=== PATIENT | male | born 1995 | race Caucasian/White ===

== ENCOUNTER 2024-10-03 13:20 | Emergency (ER) | payer BC, SELFPAY ==
[2024-10-03 13:21] VITALS: BP 156/101; PULSE 76; RESP 20; TEMP 37.1; O2SAT 98
[2024-10-03] MEDS: diazePAM 5 MG Tablet PO (14:15)
[2024-10-03] MEDS: Ketorolac 30 MG/ML Syringe IM (14:15)
--- NOTE | 2024-10-03 14:23 | EDS_ITS ---
HPI History of Present Illness Chief Complaint: Back Narrative Narrative: Chief complaint and HPI: Lumbar back pain. 29-year-old male with past medical history of herniated lumbar disks presents for evaluation of lumbar back pain. Patient states several years ago he was diagnosed with herniated lumbar disc. States he saw an orthopedic surgeon who recommended surgery however patient declined. States that he has been having intermittent low back pain. Has flared up over the last several days. Denies any injury or trauma. Denies any new numbness. States he periodically gets numbness and his lower extremities which is not uncommon. Denies weakness, urinary retention, stool or urinary incontinence, saddle anesthesia, recent invasive manipulation of the spine, intravenous drug use, or fever. Review of systems: See HPI Medications: As listed on the chart Allergies: As listed on the chart PFSH: Per chart Vital signs: As listed on the chart. Reviewed. Physical exam: Gen: A&O x3, NAD Head: Normocephalic, atraumatic Eyes: No sclera icterus, conjunctiva clear ENT: Moist mucous membranes Neck: Trachea midline, No JVD CV: RRR, no murmurs, no peripheral edema Resp: Lungs CTA BL, no w/r/c GI: Abd soft, non-distended, non-tender, no r/r/g Musc: Full ROM, no deformity, no midline spinal tenderness, no bony step-off, tenderness to palpation of the bilateral paraspinal musculature of the lower lumbar spine, no signs of trauma such as ecchymosis or cellulitis, strength +5/5 in all extremities, DP/PT pulses +2 bilaterally, no saddle paresthesias, normal gait Skin: Warm, dry Neuro: Alert, oriented, grossly intact, sensation intact Psych: Cooperative, appropriate mood and affect [facility] Home Medications ?Medication ?Instructions ?Recorded ?Last Taken ?Type cyclobenzaprine 5 mg tablet 5 mg PO TID PRN muscle spa sm 3 10/03/24 Unknown Rx days #9 tabs Allergy/AdvReac Type Severity Reaction Status Date / Time Penicillins (PCN) Allergy PT UNABLE Verified 10/03/24 13:20 TO RESPOND-NEEDS F/U Social History (Updated 02/14/20 @ 13:39 by Michael OGLESBY, PA) Smoking Status: Never smoker EXAM Physical Exam Const Vital Signs: 06/30/25 13:21 Temperature 98.7 F Temperature Source Temporal Pulse Rate 76 Respiratory Rate 20 H Blood Pressure 156/101 H Blood Pressure Mean 119 Pulse Ox 98 Oxygen Delivery Method Room Air MDM MDM MDM Narrative Medical decision making narrative: 29-year-old male with past medical history of herniated lumbar disks presents for evaluation of lumbar back pain. Patient states several years ago he was diagnosed with herniated lumbar disc. States he saw an orthopedic surgeon who recommended surgery however patient declined. States that he has been having intermittent low back pain. Has flared up over the last several days. On chart review, I do not have any previous imaging of his back. There has been no trauma or new injury. Nothing to suggest an infectious etiology. He is not an IV drug abuser. No new neurological findings to suggest acute cauda equina syndrome or acute radiculopathy. At this point in time do not feel any emergent imaging such as x-rays or MRI are warranted. Patient symptoms will be treated w ith Valium and Toradol. Patient does have a ride home. Patient will be observed. On reevaluation, patient states his pain is improved and minimal. Patient stable to discharge home. Recommend following up outpatient with orthopedic surgery as well as PCP. Will be given a prescription for muscle relaxers. Okay for ibuprofen and Tylenol. Return precautions explained. He confirmed understanding of plan. Impression: 1. Lumbar back spasm 2. Chronic back pain Discharge Plan Triage Chief Complaint: Back ED Provider: Matt Barnes Dx/Rx/DC Orders Clinical Impression: Lumbar paraspinal muscle spasm Instructions: ED Back Spasm, No Trauma Prescriptions: New cyclobenzaprine 5 mg tablet 5 mg PO TID PRN (Reason: muscle spasm) 3 Days Qty: 9 0RF Primary Care Provider: Care Physician,No Primary Referrals: Jose Mc MD [Med Staff - Active Staff] - 3-5 Days Jean Frias MD [Med Staff - Active Staff] - 3-5 Days Activity Restrictions/Additional Instructions: Follow-up with orthopedic physician. Call to make an appointment. If you do not have a family doctor, follow-up with the one provided above. You received Toradol here in the emergency department, no ibuprofen for 8 hours. You received Valium here in the emergency department, no muscle relaxer for 8 hours. After that okay for ibuprofen and muscle relaxers. Okay for Tylenol. Recommend heating pad as well as IcyHot. Gentle stretching. Return back to the ED if symptoms change or worsen. No driving or operating heavy machinery while taking muscle relaxers. Print Language: Kyrgyz Disposition Disposition: Home, Self Care
[2024-10-03 14:52] VITALS: BP 132/108; PULSE 64; RESP 18; TEMP 37.1; O2SAT 98
--- OUTSIDE RECORDS SUMMARY | 2024-10-04 00:03 | XMS RPT_ITS | CCD ---
Author Organization [facility] CliniSymo Care Team Providers Care Miniature Train Driver Name Role Phone Wood, Sadiq L Unavailable Unavailable Rafat, Ciara Unavailable Unavailable Wood, Sadiq L Unavailable Unavailable ACSO Unavailable Unavailable Rafat, Ciara Unavailable Unavailable Asbridge, Toya Unavailable Unavailable Asbridge, Toya Unavailable Unavailable Unavailable Primary Care Physician Unavailab delmy OLIVER, DR LEWIS rPuett Attending Unavailable MELODY, DR LEWIS Pruett Admitting Unavailable MELODY, DR LEWIS Pruett Primary Care Unavailable GEMMA LOZADA Primary Care Unavailable GEMMA LOZADA Attending Unavailable GEMMA LOZADA Admitting Unavailable [facility]ERENE, [facility] Admitting Unava ilable POMERENE, [facility] Primary Care Unava ilable JONANE, [facility] Attending Unava ilable WADE GUNTER Admitting Unavailable WADE GUNTER Primary Care Unavailable WADE GUNTER Attending Unavailable Required, No Pcp Unavailable Unavailable Kat Rosas Unavailable Unavailable Shima Alas Unavailable Unavailable Austin Almaguer Unavailable Unavailable Shima Alas Attending Unavailable Rafal Bergeron Attending Unavailable Dr. Austin Almaguer Attending UnavailBrock Oliva Unavailable Unavailable Duglas Dyerla B Primary Care Provider Libra Grossman Unavailable Unava ilable Libra Grossman Unavailable CASANDRA HWANG Attending Unavailable REDD SADIQ L Primary Care Unavailable LIBRA HA Attending Unavailable CASANDRA HWANG Referring Unavailable ERI, CASANDRA B Primary Care Unavailable LIBRA HA Attending Unavailable CASANDRA HWANG B Primary Care Unavailable YELITZA RIZVI Attending Unavailable CASANDRA HWANG B Primary Care Unavailable YELITZA RIZVI Attending Unavailable CASANDRA HWANG B Primary Care Unavailable YELITZA RIZVI Attending Unavailable DUGLAS HWANGLA B Primary Care Unavailable LEB, YELITZA B Attending Unavailable ERI, CASANDRA B Primary Care Unavailable LEB, YELITZA B Attending Unavailable ERI, CASANDRA B Primary Care Unavailable [facility] CHALK CUTTER-CRUSHER OPERATOR, Casandra B Primary Care Provider Leland CHALK CUTTER-CRUSHER OPERATOR, Libra Vargas Unavailable Unava ilable ERI, CASANDRA B Primary Care Unavailable LEB, YELITZA B Referring Unavailable ERI, CASANDRA B Primary Care Unavailable LEB, YELITZA B Referring Unavailable ERI, CASANDRA B Primary Care Unavailable LEB, YELITZA B Referring Unavailable ERI, CASANDRA B Primary Care Unavailable LEB, YELITZA B Referring Unavailable ERI, CASANDRA B Primary Care Unavailable LEB, YELITZA B Referring Unavailable ERI, CASANDRA B Primary Care Unavailable ERI, CASANDRA B Primary Care Unavailable LEB, YELITZA B Referring Unavailable ERI, CASANDRA B Primary Care Unavailable LEB, YELITZA B Referring Unavailable ERI, CASANDRA B Primary Care Unavailable LEB, YELITZA B Referring Unavailable ERI, CASANDRA B Primary Care Unavailable ERI, CASANDRA B Referring Unavailable ERI, CASANDRA B Primary Care Unavailable ERI, CASANDRA B Referring Unavailable ERI, CASANDRA B Primary Care Unavailable ERI, CASANDRA B Primary Care Unavailable WADE GUNTER Attending Unavailable LEB, YELITZA B Referring Unavailable ERI, CASANDRA B Primary Care Unavailable LEB, YELITZA B Referring Unavailable ERI, CASANDRA B Primary Care Unavailable LEB, YELITZA B Admitting Unavailable LEB, YELITZA B Attending Unavailable ERI, CASANDRA B Primary Care Unavailable LEB, YELITZA B Referring Unavailable ERI, CASANDRA B Primary Care Unavailable LEB, YELITZA B Referring Unavailable ERI, CASANDRA B Primary Care Unavailable LEB, YELITZA B Referring Unavailable ERI, CASANDRA B Primary Care Unavailable RADHA SAHU Attending Unavailable LEB, YELITZA B Referring Unavailable ERI, CASANDRA B Primary Care Unavailable LEB, YELITZA B Referring Unavailable ERI, CASANDRA B Primary Care Unavailable LEB, YELITZA B Referring Unavailable ERI, CASANDRA B Primary Care Unavailable LEB, YELITZA B Referring Unavailable ERI, CASANDRA B Primary Care Unavailable LEB, YELITZA B Referring Unavailable ERI, CASANDRA B Primary Care Unavailable LEB, YELITZA B Referring Unavailable ERI, CASANDRA B Primary Care Unavailable Care Physician, No Primary Primary Care Provider Unavailable Dr. Matt Barnes DO Emergency Provider Unavailable Unavailable Unavailable Allergies Allergy Classification Reported Allergen(s) Allergy Type Date of Onset Reaction(s) Facility (1 source) Penicillins Allergy to substance PT UNABLE TO RESPOND-NEEDS F/U [facility] Medications Current Medications Medication Drug Class(es) Dates Sig (Normalized) Sig (Original) acetaminophen 325 mg / HYDROcodone bitartrate 5 mg oral tablet (3 sources) Opioid Agonist Start: 08-11-2022 take 1 tablet by mouth every six hours hydrocodone-acetam inophen 5 mg-325 mg oral tablet ; 1 tab(s) orally every 6 hours Quantity: 12 Refills: 0 Ordered: 11-Aug-2022 Austin Almaguer Start: 11-Aug-2022 Generic Substitution Allowed Comments: Caution federal law prohibits the transfer of this drug to any person other than the person for whom it was prescribed.May cause drowsiness. Alcohol may intensify this effect. Use care when operating dangerous machinery.This product contains acetaminophen. Do not use with any other product containing acetaminophen to prevent possible liver damage.Using more of this medication than prescribed may cause serious breathing problems. Comment on above: Caution [address] law prohibits the transfer of this drug to any person other than the person for whom it was prescribed.May cause drowsiness. Alcohol may intensify this effect. Use care when operating dangerous machinery.This product contains acetaminophen. Do not use with any other product containing acetaminophen to prevent possible liver damage.Using more of this medication than prescribed may cause serious breathing problems. acetaminophen 325 mg / oxyCODONE hydrochloride 5 mg oral tablet (3 sources) Opioid Agonist Start: 03-21-2024 End: 03-31-2024 take 1 tablet by mouth every six hours for pain oxyCODONE-acetamin ophen (Percocet) 5-325 mg tablet Indications: Trigger middle finger of left hand Take 1 tablet by mouth every 6 hours if needed for severe pain (7 - 10) for up to 10 days. 28 tablet 03/21/2024 03/31/2024 Active amoxicillin 875 mg / clavulanate 125 mg oral tablet (5 sources) Penicillin-class Antibacterial Start: 12-16-2022 End: 12-20-2022 take 1 tablet by mouth twice daily at mealtime amoxicillin-clavul anate 875 mg-125 mg oral tablet ; 1 tab(s) orally 2 times a day Quantity: 10 Refills: 0 Ordered: 15-Dec-2022 Brock Blackwood Start: 15-Dec-2022 End: 19-Dec-2022 Generic Substitution Allowed Comments: Finish all this medication unless otherwise directed by prescriber.Take with food or milk. Start: 08-04-2022 End: 08-10-2022 take 1 tablet by mouth twice daily at mealtime amoxicillin-clavulanate 875 mg-125 mg oral tablet ; 1 tab(s) orally 2 times a day Quantity: 14 Refills: 0 Ordered: 04-Aug-2022 Rafal Bergeron Start: 04-Aug-2022 End: 10-Aug-2022 Generic Substitution Allowed Comments: Finish all this medication unless otherwise directed by prescriber.Take with food or milk. Comment on above: Finish all this medi cation unless otherwise directed by prescriber.Take with food or milk. azithromycin 250 mg oral tablet (1 source) Macrolide Antimicrobial Start : 02-06 End: 02-10 Zithromax Z-Mik 250 mg oral tablet ; 2 tab(s) by mouth at once on day 1, then 1 tablet once a day on days 2-5 Quantity: 6 Refills: 0 Ordered: 06-Feb-2022 Shima Alas Start: 06-Feb-2022 End: 10-Feb-2022 Generic Substitution Allowed Comments: Do not take dairy products, antacids, or iron preparations within one hour of this medication.Finish all this medication unless otherwise directed by prescriber. Comment on above: Do not take dairy pr oducts, antacids, or iron preparations within one hour of this medication.Finish all this medication unless otherwise directed by prescriber. calcium chloride 0.0014 meq/ml / potassium chloride 0.004 meq/ml / sodium chloride 0.103 meq/ml / sodium lactate 0.028 meq/ml injectable solution (2 sources) Start : 03-21 End: 03-22 take 50 mL intravenously every hour 50 mL/hr, intravenous, Continuous, Starting on Thu03/21/24 at 1000, For 1 day, Recovery (only) cyclobenzaprine hydrochloride 5 mg oral tablet (4 sources) Muscle Relaxant Start : 10-03 take 1 tablet by mouth three times daily as needed for muscle spasms Cyclobenzaprine 5 mg tablet Active 5 mg PO THREE TIMES A DAY as needed for muscle spasm 9 3 0 October 03, 2024 12:00am Start: 08-11-2022 End: 08-17-2022 take 1 tablet by mouth three times daily cyclobenzaprine 10 mg oral tablet ; 1 tab(s) orally 3 times a day Quantity: 21 Refills: 0 Ordered: 11-Aug-2022 Austin Almaguer Start: 11-Aug-2022 End: 17-Aug-2022 Generic Substitution Allowed Comments: May cause drowsiness. Alcohol may intensify this effect. Use care when operating dangerous machinery.Obtain medical advice before taking any non-prescription drugs as some may affect the action of this medication. Comment on above: May cause drowsiness . Alcohol may intensify this effect. Use care when operating dangerous machinery.Obtain medical advice before taking any non-prescription drugs as some may affect the action of this medication. diclofenac sodium 0.01 mg/mg topical gel (11 sources) Nonsteroidal Anti-inflammatory Drug Start: 024 End: 025 diclofenac sodium (Voltaren) 1 % gel Indications: osteoarthritis Apply 4.5 inches (4 g) topically 4 times a day as needed (as needed for pain). 100 g 1 12/23/2023 05/06/2024 Discontinued (Med List Cleanup) etodolac 400 mg oral tablet (2 sources) Nonsteroidal Anti-inflammatory Drug Start: 023 End: 023 take 1 tablet by mouth twice daily at mealtime etodolac 400 mg oral tablet ; 1 tab(s) orally 2 times a day Quantity: 14 Refills: 0 Ordered: 15-Dec-2022 Brock Blackwood Start: 15-Dec-2022 End: 21-Dec-2022 Generic Substitution Allowed Comments: It is very important that you take or use this exactly as directed. Do not skip doses or discontinue unless directed by your doctor.May cause drowsiness or dizziness.Obtain medical advice before taking any non-prescription drugs as some may affect the action of this medication.Take with food or milk. Comment on above: It is very important that you take or use this exactly as directed. Do not skip doses or discontinue unless directed by your doctor.May cause drowsiness or dizziness.Obtain medical advice before taking any non-prescription drugs as some may affect the action of this medication.Take with food or milk. 0.5 ml HYDROmorphone hydrochloride 1 mg/ml prefilled syringe (2 sources) Opioid Agonist Start: 0.5 mg, intravenous, Every 5 min PRN, pain severe (7-10), first line, Starting on 03/21/24 at 0937, Recovery (only), Max total of 4 mg regardless of dose. ibuprofen 800 mg oral tablet (7 sources) Nonsteroidal Anti-inflammatory Drug Start: End: take 1 tablet by mouth three times daily ibuprofen 800 mg tablet Indications: Acute pain of right shoulder Take 1 tablet (800 mg) by mouth 3 times a day. 90 tablet 05/06/2024 06/05/2024 Active Start: 03-29-2024 End: 04-28-2024 take 1 tablet by mouth three times daily before mealtime ibuprofen 800 mg tablet Indications: Osteoarthritis of AC (acromioclavicular) joint Take 1 tablet (800 mg) by mouth 3 times a day. 90 tablet 03/29/2024 04/28/2024 Active Start: 12-23-2023 End: 01-22-2024 take 1 tablet by mouth every eight hours for pain ibuprofen 800 mg tablet Indications: Shoulder tendonitis, right Take 1 tablet (800 mg) by mouth every 8 hours if needed for mild pain (1 - 3). 30 tablet 1 12/23/2023 01/22/2024 Active naproxen 500 mg oral tablet (20 sources) Nonsteroidal Anti-inflammatory Drug Start: 08-21-2023 End: 05-06-2024 take 1 tablet by mouth twice daily as needed for pain naproxen (Naprosyn) 500 mg tablet Indications: Acute pain of right shoulder TAKE 1 TABLET BY MOUTH TWICE DAILY NEEDED FOR MILD PAIN (1-3) 60 tablet 1 10/20/2023 05/06/2024 Discontinued (Therapy completed) Start: 08-11-2022 End: 08-17-2022 take 1 tablet by mouth twice daily at mealtime naproxen 500 mg oral tablet ; 1 tab(s) orally 2 times a day Quantity: 14 Refills: 0 Ordered: 11-Aug-2022 Austin Almaguer Start: 11-Aug-2022 End: 17-Aug-2022 Generic Substitution Allowed Comments: Check with your doctor before becoming .May cause drowsiness or dizziness.Obtain medical advice before taking any non-prescription drugs as some may affect the action of this medication.Take with food or milk. Comment on above: Check with your doct or before becoming .May cause drowsiness or dizziness.Obtain medical advice before taking any non-prescription drugs as some may affect the action of this medication.Take with food or milk. 2 ml ondansetron 2 mg/ml injection (2 sources) Serotonin-3 Receptor Antagonist Start: End: 4 mg, intravenous, Once as needed, nausea/vomiting, second line, Starting on Thu03/21/24 at 0937, For 1 dose, Recovery (only), When administering via IV Push, administer over 3-5 minutes. oxyCODONE hydrochloride 5 mg oral tablet (1 source) Opioid Agonist Start: take 1 tablet by mouth every four hours as needed 5 mg, oral, Every 4 hours PRN, pain mild (1-3), first line, Starting on Thu03/21/24 at 0937, Recovery (only), When able to take oral medications., If ordered PRN for pain, nurse is permitted to administer this medication for higher pain scores based on patient preference? Yes oxygen (O2) therapy (1 source) Start: inhalation, Continuous PRN - O2/gases, other, Starting on Thu03/21/24 at 0937, Recovery (only), Device: Simple Face Mask, Rate in Liters per minute: 6 LPM, Keep O2 Sat Above: 92% promethazine (Phenergan) 6.25 mg in sodium chloride 0.9% 50 mL IV (1 source) Start: 6.25 mg, intravenous, Administer over 15 Minutes, Once as needed, Nausea/vomiting first line, Starting on Thu03/21/24 at 0937, For 1 dose, Recovery (only) Completed/Discontinued Medications Medication Drug Class(es) Dates Sig (Normalized) Sig (Original) acetaminophen 325 mg oral tablet (1 source) Start: 03-21-2024 End: 03-21-2024 take 975 mg by mouth once as needed for pain 975 mg, oral, Once, On Thu03/21/24 at 0645, For 1 dose, Preprocedure, Administer with small amount of water preoperatively., If ordered PRN for pain, nurse is permitted to administer this medication for higher pain scores based on patient preference? Yes Start: 03-21-2024 End: 03-21-2024 take 975 mg by mouth once as needed for pain 975 mg, oral, Once, On 03/21/24 at 0645, For 1 dose, Preprocedure, Administer with small amount of water preoperatively., If ordered PRN for pain, nurse is permitted to administer this medication for higher pain scores based on patient preference? Yes amoxicillin 875 mg oral tablet (2 sources) Penicillin-class Antibacterial Start: 10-29-2019 End: 11-04-2019 take 1 tablet by mouth twice daily amoxicillin 875 mg oral tablet ; 1 tab(s) orally 2 times a day Quantity: 14 Refills: 0 Ordered: 29-Oct-2019 Ralph Yadav Start: 29-Oct-2019 End: 04-Nov-2019 Status: Other Generic Substitution Allowed Comments: Finish all this medication unless otherwise directed by prescriber. Comment on above: Finish all this medi cation unless otherwise directed by prescriber. bacitracin zinc 0.5 unt/mg topical ointment (1 source) Start: 09-20-2023 End: 09-20-2023 1 Application, Topical, Once, On Thu09/20/23 at 1845, For 1 dose, Apply to: FACE ceFAZolin 2000 mg injection (1 source) Cephalosporin Antibacterial Start: 03-21-2024 End: 03-21-2024 2 g, intravenous, Administer over 30 Minutes, Once, On Thu03/21/24 at 0645, For 1 dose, Preprocedure, Administer within 60 minutes prior to incision. premix bag, Dosing of this medication varies based on severity of illness. Does this patient have sepsis or concern for sepsis (probable or documented infection plus systemic manifestations of infection)? No, Suspected Indication (Select all that apply): Surgical Prophylaxis, Indications: Surgical Prophylaxis 1 ml dexamethasone phosphate 10 mg/ml injection (1 source) Corticosteroid Start: 03-21-2024 End: 03-21-2024 10 mg, intravenous, Once, On 03/21/24 at 0645, For 1 dose, Preprocedure Start: 03-21-2024 End: 03-21-2024 10 mg, intravenous, Once, On 03/21/24 at 0645, For 1 dose, Preprocedure 2 ml famotidine 10 mg/ml injection (1 source) Histamine-2 Receptor Antagonist Start: 03-21-2024 End: 03-21-2024 20 mg, intravenous, Administer over 2 Minutes, Once, On 03/21/24 at 0645, For 1 dose, Preprocedure gabapentin 300 mg oral capsule (1 source) Anti-epileptic Agent Start: 03-21-2024 End: 03-21-2024 take 1 capsule by mouth once 300 mg, oral, Once, On 03/21/24 at 0645, For 1 dose, Preprocedure, Administer with small amount of water preoperatively. Per orthopedic protocol. Capsules may be opened and sprinkled on food (eg, applesauce, orange juice, pudding Start: 03-21-2024 End: 03-21-2024 take 1 capsule by mouth once 300 mg, oral, Once, On Mo n 03/21/24 at 0645, For 1 dose, Preprocedure, Administer with small amount of water preoperatively. Per orthopedic protocol. Capsules may be opened and sprinkled on food (eg, applesauce, orange juice, pudding 2 ml ketorolac tromethamine 30 mg/ml injection (1 source) Nonsteroidal Anti-inflammatory Drug, Cyclooxygenase Inhibitor Start: 09-20-2023 End: 09-20-2023 inject 60 mg by intramuscular injection once 60 mg, intramuscular, Once, On 09/20/23 at 1845, For 1 dose 5 ml midazolam 1 mg/ml injection (2 sources) Benzodiazepine Start: 03-21-2024 End: 03-21-2024 1 mg, intravenous, Once, On 03/21/24 at 0745, For 1 dose Start: 03-21-2024 End: 03-21-2024 2 mg, intravenous, Once, On 03/21/24 at 0645, For 1 dose, Preprocedure, Pre-op Block sedation mupirocin 0.02 mg/mg topical ointment (2 sources) RNA Synthetase Inhibitor Antibacterial Start: 12-19-2020 End: 12-23-2020 mupirocin 2% topical ointment ; Apply topically to affected area 2 times a day Quantity: 1 Refills: 0 Ordered: 19-Dec-2020 Kat Rosas Start: 19-Dec-2020 End: 23-Dec-2020 Status: Other Generic Substitution Allowed Comments: For external use only. Comment on above: For external use onl y. predniSONE 50 mg oral tablet (3 sources) Start: 08-11-2022 End: 08-15-2022 take 1 tablet by mouth once daily at mealtime predniSONE 50 mg oral tablet ; 1 tab(s) orally once a day Quantity: 5 Refills: 0 Ordered: 11-Aug-2022 Austin Almaguer Start: 11-Aug-2022 End: 15-Aug-2022 Generic Substitution Allowed Comments: It is very important that you take or use this exactly as directed. Do not skip doses or discontinue unless directed by your doctor.Obtain medical advice before taking any non-prescription drugs as some may affect the action of this medication.Take with food or milk. Comment on above: It is very important that you take or use this exactly as directed. Do not skip doses or discontinue unless directed by your doctor.Obtain medical advice before taking any non-prescription drugs as some may affect the action of this medication.Take with food or milk. sulfamethoxazole 800 mg / trimethoprim 160 mg oral tablet (2 sources) Dihydrofolate Reductase Inhibitor Antibacterial, Sulfonamide Antimicrobial Start: 12-19-2020 End: 12-28-2020 take 1 tablet by mouth twice daily Bactrim DS 800 mg-160 mg oral tablet ; 1 tab(s) orally 2 times a day Quantity: 20 Refills: 0 Ordered: 19-Dec-2020 Kat Rosas Start: 19-Dec-2020 End: 28-Dec-2020 Status: Other Generic Substitution Allowed Comments: Avoid prolonged or excessive exposure to direct and/or artificial sunlight while taking this medication.Finish all this medication unless otherwise directed by prescriber.Medica tion should be taken with plenty of water. Comment on above: Avoid prolonged or e xcessive exposure to direct and/or artificial sunlight while taking this medication.Finish all this medication unless otherwise directed by prescriber.Medication should be taken with plenty of water. 1 ml triamcinolone acetonide 40 mg/ml injection (2 sources) Corticosteroid Start: 09-11-2023 End: 09-11-2023 triamcinolone acetonide (Kenalog-40) injection 40 mg Start: 09-11-2023 End: 09-11-2023 40 mg, intra-articular, Once PRN Procedure, Starting on Thu09/11/23 at 1032, For 1 dose Problems Active Problems Problem Classification Problem Date Documented Date Episodic/Chronic Alcohol-related disorders (3 sources) Alcohol abuse with intoxication, unspecified; Translations: [Alcohol abuse with intoxication, unspecified] Onset: 06-20-2020 Chronic Headache; including migraine (1 source) Headache; including migraine; Translations: [Headache, unspecified] Onset: 08-04-2022 Open wounds of extremities (2 sources) Laceration of hand; Translations: [Open wound of hand except finger(s) alone, without mention of complication] 12-16-2022 Episodic Osteoarthritis (20 sources) Osteoarthritis of acromioclavicular joint; Translations: [Primary osteoarthritis, unspecified shoulder] Onset: 09-11-2023 09-11-2023 Chronic Other connective tissue disease (2 sources) Pain in right upper arm; Translations: [Pain in right upper arm] Onset: 07-12-2020 Episodic Other connective tissue disease (1 source) Triggering of digit; Translations: [Trigger finger, left middle finger] 03-21-2024 Episodic Other injuries and conditions due to external causes (1 source) Closed injury of head; Translations: [Unspecified injury of head, initial encounter] 09-20-2023 Episodic Other nervous system disorders (2 sources) Paresthesia of upper limb; Translations: [Anesthesia of skin] 08-21-2023 Episodic Other nervous system disorders (1 source) Paresthesia of hand ; Translations: [Anesthesia of skin] 08-21-2023 Episodic Other screening for suspected conditions (not mental disorders or infectious disease) (11 sources) Patient encounter status; Translations: [Encounter for screening for cardiovascular disorders] Onset: 08-21-2023 08-21-2023 Episodic Other upper respiratory disease (2 sources) Pain in throat 02-06-2022 Episodic Comment on above: SORE THROAT Other upper respiratory disease (1 source) Nasal congestion; Translations: [Nasal congestion] Onset: 08-04-2022 Episodic Other upper respiratory infections (8 sources) Acute pharyngitis; Translations: [Acute pharyngitis] Onset: 02-06-2022 02-06-2022 Episodic Residual codes; unclassified (1 source) Tobacco use; Translations: [Tobacco use] Onset: 08-11-2022 Episodic Residual codes; unclassified (3 sources) Edema of the upper extremity ; Translations: [Localized edema] Onset: 04-28-2024 04-28-2024 Episodic Skin and subcutaneous tissue infections (4 sources) Cutaneous abscess of right axilla; Translations: [Abscess] Onset: 07-12-2020 12-19-2020 Episodic Comment on above: ABSCESS Spondylosis; intervertebral disc disorders; other back problems (2 sources) Prolapsed lumbar intervertebral disc; Translations: [Displacement of lumbar intervertebral disc without myelopathy] Onset: 08-11-2022 08-11-2022 Chronic Spondylosis; intervertebral disc disorders; other back problems (2 sources) Muscle spasm of back; Translations: [Spasm of muscle of lower back] Onset: 08-11-2022 10-03-2024 Episodic Spondylosis; intervertebral disc disorders; other back problems (1 source) Spondylosis; intervertebral disc disorders; other back problems 08-11-2022 Substance-related disorders (2 sources) Nicotine dependence, unspecified, uncomplicated; Translations: [Nicotine dependence, unspecified, uncomplicated] Onset: 06-20-2020 Chronic Unclassified (1 source) Abscess of skin 12-19-2020 Unclassified (2 sources) BACK PAIN JOB RELATED 08-11-2022 Comment on above: BACK PAIN JOB RELATE D Unclassified (1 source) Low back pain, unspecified; Translations: [Low back pain, unspecified] Onset: 08-11-2022 Unclassified (1 source) Partially vaccinated for COVID-19; Translations: [Partially vaccinated for COVID-19] Onset: 02-06-2022 Unclassified (1 source) Personal history of COVID-19; Translations: [Personal history of COVID-19] Onset: 02-06-2022 Unclassified (2 sources) LF HAND INJURY 12-15-2022 Comment on above: LF HAND INJURY Unclassified (2 sources) Hand laceration 12-16-2022 Unclassified (2 sources) LEFT WRIST PAIN 12-16-2022 Comment on above: LEFT WRIST PAIN Unclassified (1 source) Acute pain of right shoulder 05-06-2024 Past or Other Problems Problem Classification Problem Date Documented Da te Episodic/Chronic Other connective tissue disease (20 sources) Tendonitis of right shoulder; Translations: [Other enthesopathies, not elsewhere classified] Onset: 10-07-2023 09-11-2023 Episodic Other connective tissue disease (4 sources) Other enthesopathies, not elsewhere classified; Translations: [Other enthesopathies, not elsewhere classified] Onset: 10-07-2023 Episodic Other injuries and conditions due to external causes (2 sources) Unspecified injury of head, initial encounter; Translations: [Unspecified injury of head, initial encounter] Onset: 09-20-2023 Episodic Other nervous system disorders (5 sources) Paresthesia of skin; Translations: [Paresthesia of skin] Onset: 08-11-2022 Episodic Other nervous system disorders (4 sources) Anesthesia of skin; Translations: [Anesthesia of skin] Onset: 08-21-2023 Episodic Other non-traumatic joint disorders (20 sources) Pain in right shoulder; Translations: [Pain in joint, shoulder region] Onset: 08-21-2023 08-21-2023 Episodic Other non-traumatic joint disorders (20 sources) Decreased range of shoulder movement; Translations: [Stiffness of right shoulder, not elsewhere classified] Onset: 01-18-2024 01-18-2024 Episodic Other non-traumatic joint disorders (4 sources) Stiffness of right shoulder, not elsewhere classified; Translations: [Stiffness of right shoulder, not elsewhere classified] Onset: 01-18-2024 Episodic Other upper respiratory disease (1 source) Other specified disorders of nose and nasal sinuses; Translations: [Other specified disorders of nose and nasal sinuses] Onset: 02-06-2022 Episodic Sprains and strains (3 sources) Strain of neck muscle; Translations: [Strain of muscle, fascia and tendon at neck level, initial encounter] Onset: 09-20-2023 09-20-2023 Episodic Superficial injury; contusion (12 sources) Abrasion of face; Translations: [Abrasion of other part of head, initial encounter] Onset: 09-20-2023 09-20-2023 Episodic Unclassified (10 sources) Onset: 01-18-2024 01-18-2024 Results Test Name Value Interpretation Reference Range Facility POINT OF CARE ULTRASOUND NO CHARGEon 06-23-2024 POINT OF CARE ULTRASOUND NO CHARGE These images are not reportable by radiology and will not be interpreted by Radiologists. [facility] US Abdomenon 06-23-2024 These images are not reportable by radiology and will not be interpreted by Radiologists. IMAGING POINT OF CARE ULTRASOUND NO CHARGEon 05-06-2024 POINT OF CARE ULTRASOUND NO CHARGE These images are not reportable by radiology and will not be interpreted by Radiologists. [facility] US Abdomenon 05-06-2024 These images are not reportable by radiology and will not be interpreted by Radiologists. IMAGING POINT OF CARE ULTRASOUND NO CHARGEon 04-29-2024 POINT OF CARE ULTRASOUND NO CHARGE These images are not reportable by radiology and will not be interpreted by Radiologists. [facility] XR SHOULDER RIGHT 2+ VIEWSon 03-29-2024 XR SHOULDER RIGHT 2+ VIEWS Interpreted By: Juno Maynard, STUDY: XR SHOULDER RIGHT 2+ VIEWS; ; 03/29/2024 8:56 am INDICATION: Signs/Symptoms:POV RIGHT SHOULDER FATUMA AND SAD. ,M19.019 Primary osteoarthritis, unspecified shoulder COMPARISON: None. ACCESSION NUMBER(S): [id number] ORDERING CLINICIAN: YELITZA RIZVI FINDINGS: Two views of the right shoulder. Presumed postsurgical changes status post distal clavicular resection. No acute fracture. No dislocation. The soft tissues are unremarkable. IMPRESSION: Such presumed postsurgical changes status post distal clavicular resection. 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 MACRO: None Signed by: Juno Maynard 04/03/2024 12:36 PM Dictation workstation: [id number] [facility] Basic metabolic 2000 panelon 02-26-2024 Anion gap [Moles/Vol] 9 mmol/L Low 10-20 [facility] Comment on above: Performed By: #### 2 4323-8 #### GEORGIA GUNN ([id number]) [facility] ([facility]) [address] [place] [address] Calcium [Mass/Vol] 9.7 mg/dL Normal 8.6-10.3 [facility] Comment on above: Performed By: #### 2 4323-8 #### GEOR[place]IA GUNN ([id number]) [facility] ([facility]) [facility] [place] [address] Chloride [Moles/Vol] 104 mmol/L Normal 98-107 [facility] Comment on above: Performed By: #### 2 4323-8 #### GE[place]IA GUNN ([id number]) [facility] ([facility]) [address] [place] [address] 15432 CO2 [Moles/Vol] 30 mmol/L Normal 21-32 [facility] Comment on above: Performed By: #### 2 4323-8 #### GEOR[place]IA GUNN ([id number]) [facility] ([facility]) [address] [place] [address] 95622 Creatinine [Mass/Vol] 0.82 mg/dL Normal 0.50-1.30 [facility] Comment on above: Performed By: #### 2 4323-8 #### GE[place]IA GUNN ([id number]) [facility] ([facility]) [address] [place] [address] 94467 GFR/1.73 sq M.predicted MDRD (S/P/Bld) [Vol rate/Area] mL/min/{1.73_m2} Normal >60 [facility] Comment on above: Result Comment: Calc ulations of estimated GFR are performed using the 2020 CKD-EPI Study Refit equation without the race variable for the IDMS-Traceable creatinine methods. https://jasn.asnjournals.org/content//ASN.51158 72997 Performed By: #### 2 4323-8 #### GEORGIA GUNN ([id number]) [facility] ([facility]) [address] [place] [address] 46484 Glucose [Mass/Vol] 97 mg/dL Normal 74-99 [facility] Comment on above: Performed By: #### 2 4323-8 #### GEOR[place]IA GUNN ([id number]) [facility] ([facility]) [address] [place] [address] 23857 Potassium [Moles/Vol] 4.3 mmol/L Normal 3.5-5.3 [facility] Comment on above: Performed By: #### 2 4323-8 #### GEORGIA GUNN ([id number]) [facility] ([facility]) [address] [place] [address] Sodium [Moles/Vol] 139 mmol/L Normal 136-145 [facility] Comment on above: Performed By: #### 2 4323-8 #### GEORGIA GUNN ([id number]) [facility] ([facility]) [address] [place] [address] Urea nitrogen [Mass/Vol] 18 mg/dL Normal 6-23 [facility] Comment on above: Performed By: #### 2 4323-8 #### GEORGIA GUNN ([id number]) [facility] ([facility]) [address] [place] [address] CBC panel Auto (Bld)on 02-25 Erythrocyte distribution width (RBC) [Ratio] 12.3 % Normal 11.5-14.5 [facility] Comment on above: Performed By: #### 5 8410-2 #### GEORGIA GUNN ([id number]) [facility] ([facility]) [address] [place] [address] 15603 Hematocrit (Bld) [Volume fraction] 43.8 % Normal 41.0-52.0 [facility] Comment on above: Performed By: #### 5 8410-2 #### GEORGIA GUNN ([id number]) [facility] ([facility]) [address] [place] [address] 25939 Hemoglobin (Bld) [Mass/Vol] 14.9 g/dL Normal 13.5-17.5 [facility] Comment on above: Performed By: #### 5 8410-2 #### GEORGIA GUNN ([id number]) [facility] ([facility]) [address] [place] [address] 48749 MCH (RBC) [Entitic mass] 30.6 pg Normal 26.0-34.0 [facility] Comment on above: Performed By: #### 5 8410-2 #### GEORGIA GUNN ([id number]) [facility] ([facility]) [address] [place] [address] 15478 MCHC (RBC) [Mass/Vol] 34.0 g/dL Normal 32.0-36.0 [facility] Comment on above: Performed By: #### 5 8410-2 #### GEORGIA GUNN ([id number]) [facility] ([facility]) [address] [place] [address] 44675 MCV (RBC) [Entitic vol] 90 fL Normal 80-100 [facility] Comment on above: Performed By: #### 5 8410-2 #### GEORGIA GUNN ([id number]) [facility] ([facility]) [address] [place] [address] 77741 Nucleated RBC/100 WBC (Bld) [Ratio] 0.0 /100 WBCs Normal 0.0-0.0 [facility] Comment on above: Performed By: #### 5 8410-2 #### GEORGIA GUNN ([id number]) [facility] ([facility]) [address] [place] [address] 90344 Platelets (Bld) [#/Vol] 266 x10*3/uL Normal 150-450 [facility] Comment on above: Performed By: #### 5 8410-2 #### GEORGIA GUNN ([id number]) [facility] ([facility]) [address] [place] [address] 83294 RBC (Bld) [#/Vol] 4.87 x10*6/uL Normal 4.50-5.90 [facility] Comment on above: Performed By: #### 5 8410-2 #### GEORGIA GUNN ([id number]) [facility] ([facility]) [address] [place] [address] 71758 WBC (Bld) [#/Vol] 8.7 x10*3/uL Normal 4.4-11.3 [facility] Comment on above: Performed By: #### 5 8410-2 #### GEORGIA GUNN ([id number]) [facility] ([facility]) [address] [place] [address] 18154 POINT OF CARE ULTRASOUND NO CHARGEon 02-26-2024 POINT OF CARE ULTRASOUND NO CHARGE These images are not reportable by radiology and will not be interpreted by Radiologists. [facility] US Abdomenon 02-26-2024 These images are not reportable by radiology and will not be interpreted by Radiologists. IMAGING POINT OF CARE ULTRASOUND NO CHARGEon 02-02-2024 POINT OF CARE ULTRASOUND NO CHARGE These images are not reportable by radiology and will not be interpreted by Radiologists. [facility] US Abdomenon 02-02-2024 These images are not reportable by radiology and will not be interpreted by Radiologists. IMAGING POINT OF CARE ULTRASOUND NO CHARGEon 12-23-2023 POINT OF CARE ULTRASOUND NO CHARGE These images are not reportable by radiology and will not be interpreted by Radiologists. [facility] US Abdomenon 12-23-2023 These images are not reportable by radiology and will not be interpreted by Radiologists. IMAGING XR SHOULDER RIGHT 2+ VIEWSon 12-23-2023 XR SHOULDER RIGHT 2+ VIEWS Interpreted By: Kay Rene, STUDY: Right shoulder, 6 views. INDICATION: Signs/Symptoms:CHRONI C R SHOULDER PAIN. COMPARISON: 08/21/2023. ACCESSION NUMBER(S): [id number] ORDERING CLINICIAN: YELITZA RIZVI FINDINGS: No acute fracture or malalignment. No significant degenerative changes. Soft tissues are unremarkable. IMPRESSION: 1. Unremarkable right shoulder radiographs. MACRO: None. Signed by: Kay Rene 12/24/2023 8:30 PM Dictation workstation: [id number] [facility] POINT OF CARE ULTRASOUND NO CHARGEon 12-22-2023 POINT OF CARE ULTRASOUND NO CHARGE These images are not reportable by radiology and will not be interpreted by Radiologists. [facility] US Abdomenon 12-22-2023 These images are not reportable by radiology and will not be interpreted by Radiologists. IMAGING POINT OF CARE ULTRASOUND NO CHARGEon 11-24-2023 POINT OF CARE ULTRASOUND NO CHARGE These images are not reportable by radiology and will not be interpreted by Radiologists. [facility] US Abdomenon 11-24-2023 These images are not reportable by radiology and will not be interpreted by Radiologists. IMAGING CT CERVICAL SPINE WO IV CONT RASTon 09-20-2023 CT CERVICAL SPINE WO IV CONTRAST Interpreted By: Renetta Cervantes, STUDY: CT HEAD WO IV CONTRAST; CT CERVICAL SPINE WO IV CONTRAST; 09/20/2023 7:01 pm INDICATION: Signs/Symptoms:HEAD INJURY/DOVE INTO CEMENT BLOCK; Signs/Symptoms:NECK PAIN AFTER DIVING INTO CEMENT BLOCK. COMPARISON: None. ACCESSION NUMBER(S): [id number]; [id number] ORDERING CLINICIAN: KYUNG TOWNSEND TECHNIQUE: Noncontrast CT images of head. Axial noncontrast CT images of the cervical spine with coronal and sagittal reconstructed images. FINDINGS: BRAIN PARENCHYMA: Agosto-white matter interfaces are preserved. No mass effect or midline shift. HEMORRHAGE: No acute intracranial hemorrhage. VENTRICLES and EXTRA-AXIAL SPACES: Normal size. EXTRACRANIAL SOFT TISSUES: Within normal limits. PARANASAL SINUSES/MASTOIDS: The visualized paranasal sinuses and mastoid air cells are aerated. CALVARIUM: No depressed skull fracture. No destructive osseous lesion. OTHER FINDINGS: None. CERVICAL SPINE: ALIGNMENT: Mild reversal the cervical curvature. Facet joint craniocervical alignment maintained. VERTEBRAE: No acute fracture. Incomplete fusion of the posterior arch of C1, likely developmental. SPINAL CANAL: No critical spinal canal stenosis. PREVERTEBRAL SOFT TISSUES: No prevertebral soft tissue swelling. LUNG APICES: Imaged portion of the lung apices are within normal limits. OTHER FINDINGS: None. IMPRESSION: No acute intracranial hemorrhage or mass effect. No acute fracture or traumatic subluxation of the cervical spine. Mild reversal the cervical curvature which may be positional related to muscle spasm. MACRO: None. Signed by: Renetta Cervantes 09/20/2023 7:26 PM Dictation workstation: [id number] [facility] CT HEAD WO IV CONTRASTon CT HEAD WO IV CONTRAST Interpreted By: Renetta Cervantes, STUDY: CT HEAD WO IV CONTRAST; CT CERVICAL SPINE WO IV CONTRAST; 09/20/2023 7:01 pm INDICATION: Signs/Symptoms:HEAD INJURY/DOVE INTO CEMENT BLOCK; Signs/Symptoms:NECK PAIN AFTER DIVING INTO CEMENT BLOCK. COMPARISON: None. ACCESSION NUMBER(S): [id number]; [id number] ORDERING CLINICIAN: KYUNG TOWNSEND TECHNIQUE: Noncontrast CT images of head. Axial noncontrast CT images of the cervical spine with coronal and sagittal reconstructed images. FINDINGS: BRAIN PARENCHYMA: Agosto-white matter interfaces are preserved. No mass effect or midline shift. HEMORRHAGE: No acute intracranial hemorrhage. VENTRICLES and EXTRA-AXIAL SPACES: Normal size. EXTRACRANIAL SOFT TISSUES: Within normal limits. PARANASAL SINUSES/MASTOIDS: The visualized paranasal sinuses and mastoid air cells are aerated. CALVARIUM: No depressed skull fracture. No destructive osseous lesion. OTHER FINDINGS: None. CERVICAL SPINE: ALIGNMENT: Mild reversal the cervical curvature. Facet joint craniocervical alignment maintained. VERTEBRAE: No acute fracture. Incomplete fusion of the posterior arch of C1, likely developmental. SPINAL CANAL: No critical spinal canal stenosis. PREVERTEBRAL SOFT TISSUES: No prevertebral soft tissue swelling. LUNG APICES: Imaged portion of the lung apices are within normal limits. OTHER FINDINGS: None. IMPRESSION: No acute intracranial hemorrhage or mass effect. No acute fracture or traumatic subluxation of the cervical spine. Mild reversal the cervical curvature which may be positional related to muscle spasm. MACRO: None. Signed by: Renetta Cervantes 09/20/2023 7:26 PM Dictation workstation: [id number] [facility] No Panel Informationon 09-19 No acute intracrania l hemorrhage or mass effect. No acute fracture or traumatic subluxation of the cervical spine. Mild reversal the cervical curvature which may be positional related to muscle spasm. MACRO: None. Signed by: Renetta Cervantes 09/20/2023 7:26 PM Dictation workstation: [id number] MMODAL Interpreted By: Renetta Cervantes, STUDY: CT HEAD WO IV CONTRAST; CT CERVICAL SPINE WO IV CONTRAST; 09/20/2023 7:01 pm INDICATION: Signs/Symptoms:HEAD INJURY/DOVE INTO CEMENT BLOCK; Signs/Symptoms:NECK PAIN AFTER DIVING INTO CEMENT BLOCK. COMPARISON: None. ACCESSION NUMBER(S): [id number]; [id number] ORDERING CLINICIAN: KYUNG TOWNSEND TECHNIQUE: Noncontrast CT images of head. Axial noncontrast CT images of the cervical spine with coronal and sagittal reconstructed images. FINDINGS: BRAIN PARENCHYMA: Agosto-white matter interfaces are preserved. No mass effect or midline shift. HEMORRHAGE: No acute intracranial hemorrhage. VENTRICLES and EXTRA-AXIAL SPACES: Normal size. EXTRACRANIAL SOFT TISSUES: Within normal limits. PARANASAL SINUSES/MASTOIDS: The visualized paranasal sinuses and mastoid air cells are aerated. CALVARIUM: No depressed skull fracture. No destructive osseous lesion. OTHER FINDINGS: None. CERVICAL SPINE: ALIGNMENT: Mild reversal the cervical curvature. Facet joint craniocervical alignment maintained. VERTEBRAE: No acute fracture. Incomplete fusion of the posterior arch of C1, likely developmental. SPINAL CANAL: No critical spinal canal stenosis. PREVERTEBRAL SOFT TISSUES: No prevertebral soft tissue swelling. LUNG APICES: Imaged portion of the lung apices are within normal limits. OTHER FINDINGS: None. MMODAL Renetta Cervantes D O - 09/20/2023 Interpreted By: Renetta Cervantes, STUDY: CT HEAD WO IV CONTRAST; CT CERVICAL SPINE WO IV CONTRAST; 09/20/2023 7:01 pm INDICATION: Signs/Symptoms:HEAD INJURY/DOVE INTO CEMENT BLOCK; Signs/Symptoms:NECK PAIN AFTER DIVING INTO CEMENT BLOCK. COMPARISON: None. ACCESSION NUMBER(S): [id number]; [id number] ORDERING CLINICIAN: KYUNG TOWNSEND TECHNIQUE: Noncontrast CT images of head. Axial noncontrast CT images of the cervical spine with coronal and sagittal reconstructed images. FINDINGS: BRAIN PARENCHYMA: Agosto-white matter interfaces are preserved. No mass effect or midline shift. HEMORRHAGE: No acute intracranial hemorrhage. VENTRICLES and EXTRA-AXIAL SPACES: Normal size. EXTRACRANIAL SOFT TISSUES: Within normal limits. PARANASAL SINUSES/MASTOIDS: The visualized paranasal sinuses and mastoid air cells are aerated. CALVARIUM: No depressed skull fracture. No destructive osseous lesion. OTHER FINDINGS: None. CERVICAL SPINE: ALIGNMENT: Mild reversal the cervical curvature. Facet joint craniocervical alignment maintained. VERTEBRAE: No acute fracture. Incomplete fusion of the posterior arch of C1, likely developmental. SPINAL CANAL: No critical spinal canal stenosis. PREVERTEBRAL SOFT TISSUES: No prevertebral soft tissue swelling. LUNG APICES: Imaged portion of the lung apices are within normal limits. OTHER FINDINGS: None. IMPRESSION: No acute intracranial hemorrhage or mass effect. No acute fracture or traumatic subluxation of the cervical spine. Mild reversal the cervical curvature which may be positional related to muscle spasm. MACRO: None. 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 Skin was prepped with Betadine, vapo coolant spray and alcohol. Administered injection of 40 mg Kenalog, 3 cc 1% lidocaine and 3 cc of 0.25% bupivacaine. Patient tolerated injection well with lidocaine suppression. No active bleeding, bandage applied to site. Procedure, treatment alternatives, risks and benefits explained, specific risks discussed. Consent was given by the patient. Immediately prior to procedure a time out was called to verify the correct patient, procedure, equipment, manager support and site/side marked as required. Patient was prepped and draped in the usual sterile fashion. [facility] Work Phone: [facility] Work Phone: [facility]ER RIGHT WO IV CONTRAST Interpreted By: Juno Maynard, STUDY: MRI of the right shoulder without IV contrast; 08/27/2023 7:51 pm INDICATION: Signs/Symptoms:right shoulder pain with n/t down arm, weakness. COMPARISON: 08/21/2023 ACCESSION NUMBER(S): [id number] ORDERING CLINICIAN: CASANDRA HWANG TECHNIQUE: MR imaging of the right shoulder was obtained without IV contrast. FINDINGS: ROTATOR CUFF TENDONS: There is mild supraspinatus and infraspinatus tendinosis without tear. The subscapularis tendon is intact. The teres minor tendon is intact. Humeral cystic changes at the infraspinatus tendon insertion. There is no edema or fatty atrophy of the rotator cuff musculature. BICEPS TENDON AND ROTATOR INTERVAL: Mild intra-articular long head biceps tendinosis without tear. The rotator interval is unremarkable. JOINTS: There is mild acromioclavicular degenerative change. There is relatively pronounced marrow edema of the distal clavicle with areas of subchondral irregularity which may reflect osteolysis. Evaluation of the glenohumeral articulation demonstrates no articular cartilage defects. No evidence of significant joint effusion. No significant bursal fluid collection. LABRUM: There is linear abnormal signal within the substance of the anterosuperior and anteroinferior labrum suspicious for tearing. OSSEOUS STRUCTURES: No focal marrow replacing lesions are identified. There is no fracture. SOFT TISSUES: The suprascapular nerve is intact at the suprascapular and spinoglenoid notches. 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 Correlate with history of acromioclavicular trauma or chronic repetitive micro trauma. Mild supraspinatus and infraspinatus tendinosis without tear. Mild long head biceps tendinosis. Probable anterosuperior and anteroinferior labral tearing. MACRO: None Signed by: Juno Maynard 08/28/2023 9:03 AM Dictation workstation: [id number] Normal [facility] CBC W Auto Differential pane l (Bld)on 08-21-2023 Basophils (Bld) [#/Vol] 0.03 x10*3/uL Normal 0.00-0.10 [facility] Comment on above: Performed By: #### 5 7021-8 #### GEORGIA GUNN ([id number]) [facility] ([facility]) [address] [place] [address] 59037 Basophils/100 WBC (Bld) 0.3 % Normal 0.0-2.0 [facility] Comment on above: Performed By: #### 5 7021-8 #### GEORGIA GUNN ([id number]) [facility] ([facility]) [address] [place] [address] 07632 Eosinophils (Bld) [#/Vol] 0.24 x10*3/uL Normal 0.00-0.70 [facility] Comment on above: Performed By: #### 5 7021-8 #### GEORGIA GUNN ([id number]) [facility] ([facility]) [address] [place] [address] 11757 Eosinophils/100 WBC (Bld) 2.3 % Normal 0.0-6.0 [facility] Comment on above: Performed By: #### 5 7021-8 #### GEORGIA GUNN ([id number]) [facility] ([facility]) [address] [place] [address] 13771 Erythrocyte distribution width (RBC) [Ratio] 12.5 % Normal 11.5-14.5 [facility] Comment on above: Performed By: #### 5 7021-8 #### GEORGIA GUNN ([id number]) [facility] ([facility]) [address] [place], [place] [id number] Hematocrit (Bld) [Volume fraction] 40.7 % Low 41.0-52.0 [facility] Comment on above: Performed By: #### 5 7021-8 #### GEORGIA GUNN ([id number]) [facility] ([facility]) [address] [place] [address] 57500 Hemoglobin (Bld) [Mass/Vol] 13.8 g/dL Normal 13.5-17.5 [facility] Comment on above: Performed By: #### 5 7021-8 #### GEORGIA GUNN ([id number]) [facility] ([facility]) [address] [place] [address] 04936 Immature granulocytes (Bld) [#/Vol] 0.03 x10*3/uL Normal 0.00-0.70 [facility] Comment on above: Performed By: #### 5 7021-8 #### GEORGIA GUNN ([id number]) [facility] ([facility]) [address] [place] [address] 60257 Immature granulocytes/100 WBC (Bld) 0.3 % Normal 0.0-0.9 [facility] Comment on above: Result Comment: Sayra ture Granulocyte Count (IG) includes promyelocytes, myelocytes and metamyelocytes but does not include bands. Percent differential counts (%) should be interpreted in the context of the absolute cell counts (cells/UL). Performed By: #### 5 7021-8 #### GEORGIA GUNN ([id number]) [facility] ([facility]) [address] [place] [address] 55514 Lymphocytes (Bld) [#/Vol] 4.21 x10*3/uL Normal 1.20-4.80 [facility] Comment on above: Performed By: #### 5 7021-8 #### GEORGIA GUNN ([id number]) [facility] ([facility]) [address] [place] [address] 32991 Lymphocytes/100 WBC (Bld) 40.5 % Normal 13.0-44.0 [facility] Comment on above: Performed By: #### 5 7021-8 #### GEORGIA GUNN ([id number]) [facility] ([facility]) [address] [place] [address] 94935 MCH (RBC) [Entitic mass] 30.8 pg Normal 26.0-34.0 [facility] Comment on above: Performed By: #### 5 7021-8 #### GEORGIA GUNN ([id number]) [facility] ([facility]) [address] [place] [address] 45956 MCHC (RBC) [Mass/Vol] 33.9 g/dL Normal 32.0-36.0 [facility] Comment on above: Performed By: #### 5 7021-8 #### GEORGIA GUNN ([id number]) [facility] ([facility]) [address] [place] [address] 75337 MCV (RBC) [Entitic vol] 91 fL Normal 80-100 [facility] Comment on above: Performed By: #### 5 7021-8 #### GEORGIA GUNN ([id number]) [facility] ([facility]) [address] [place] [address] 03622 Monocytes (Bld) [#/Vol] 0.58 x10*3/uL Normal 0.10-1.00 [facility] Comment on above: Performed By: #### 5 7021-8 #### GEORGIA GUNN ([id number]) [facility] ([facility]) [address] [place] [address] 69104 Monocytes/100 WBC (Bld) 5.6 % Normal 2.0-10.0 [facility] Comment on above: Performed By: #### 5 7021-8 #### GEORGIA GUNN ([id number]) [facility] ([facility]) [address] [place] [address] 78959 Neutrophils (Bld) [#/Vol] 5.30 x10*3/uL Normal 1.20-7.70 [facility] Comment on above: Result Comment: Perc ent differential counts (%) should be interpreted in the context of the absolute cell counts (cells/uL). Performed By: #### 5 7021-8 #### GEORGIA GUNN ([id number]) [facility] ([facility]) [address] [place] [address] 90518 Neutrophils/100 WBC (Bld) 51.0 % Normal 40.0-80.0 [facility] Comment on above: Performed By: #### 5 7021-8 #### GEORGIA GUNN ([id number]) [facility] ([facility]) [address] [place] [address] 62847 Nucleated RBC/100 WBC (Bld) [Ratio] 0.0 /100 WBCs Normal 0.0-0.0 [facility] Comment on above: Performed By: #### 5 7021-8 #### GEORGIA GUNN ([id number]) [facility] ([facility]) [address] [place] [address] 88473 Platelets (Bld) [#/Vol] 279 x10*3/uL Normal 150-450 [facility] Comment on above: Performed By: #### 5 7021-8 #### GEORGIA GUNN ([id number]) [facility] ([facility]) [address] [place] [address] 86600 RBC (Bld) [#/Vol] 4.48 x10*6/uL Low 4.50-5.90 [facility] Comment on above: Performed By: #### 5 7021-8 #### GEORGIA GUNN ([id number]) [facility] ([facility]) [address] [place] [address] 00373 WBC (Bld) [#/Vol] 10.4 x10*3/uL Normal 4.4-11.3 [facility] Comment on above: Performed By: #### 5 7021-8 #### GEORGIA GUNN ([id number]) [facility] ([facility]) [address] [place] [address] Comprehensive metabolic 2000 panelon 08-21-2023 Albumin BCP dye [Mass/Vol] 4.6 g/dL Normal 3.4-5.0 [facility] Comment on above: Performed By: #### 2 4323-8 #### GEORGIA GUNN ([id number]) [facility] ([facility]) [address] [place] [address] 88874 ALP [Catalytic activity/Vol] 54 U/L Normal 33-120 [facility] Comment on above: Performed By: #### 2 4323-8 #### GEORGIA GUNN ([id number]) [facility] ([facility]) [address] [place] [address] 71304 ALT With P-5'-P [Catalytic activity/Vol] 30 U/L Normal 10-52 [facility] Comment on above: Result Comment: Lety ents treated with Sulfasalazine may generate falsely decreased results for ALT. Performed By: #### 2 4323-8 #### GEORGIA GUNN ([id number]) [facility] ([facility]) [address] [place] [address] 21906 Anion gap [Moles/Vol] 12 mmol/L Normal 10-20 [facility] Comment on above: Performed By: #### 2 4323-8 #### GEORGIA GUNN ([id number]) [facility] ([facility]) [address] [place] [address] 75889 AST With P-5'-P [Catalytic activity/Vol] 25 U/L Normal 9-39 [facility] Comment on above: Performed By: #### 2 4323-8 #### GEORGIA GUNN ([id number]) [facility] ([facility]) [address] [place] [address] Bilirubin [Mass/Vol] 0.6 mg/dL Normal 0.0-1.2 [facility] Comment on above: Performed By: #### 2 4323-8 #### GEORGIA GUNN ([id number]) [facility] ([facility]) [address] [place] [address] 24743 Calcium [Mass/Vol] 9.2 mg/dL Normal 8.6-10.3 [facility] Comment on above: Performed By: #### 2 4323-8 #### GEORGIA GUNN ([id number]) [facility] ([facility]) [address] [place] [address] 77468 Chloride [Moles/Vol] 106 mmol/L Normal 98-107 [facility] Comment on above: Performed By: #### 2 4323-8 #### GEORGIA GUNN ([id number]) [facility] ([facility]) [address] [place] [address] 32991 CO2 [Moles/Vol] 25 mmol/L Normal 21-32 [facility] Comment on above: Performed By: #### 2 4323-8 #### GEORGIA GUNN ([id number]) [facility] ([facility]) [facility] [place] [address] Creatinine [Mass/Vol] 0.92 mg/dL Normal 0.50-1.30 [facility] Comment on above: Performed By: #### 2 4323-8 #### GEORGIA GUNN ([id number]) [facility] ([facility]) [address] [place] [address] 39427 GFR/1.73 sq M.predicted MDRD (S/P/Bld) [Vol rate/Area] mL/min/{1.73_m2} Normal >60 [facility] Comment on above: Result Comment: Calc ulations of estimated GFR are performed using the 2020 CKD-EPI Study Refit equation without the race variable for the IDMS-Traceable creatinine methods. https://jasn.asnjournals.org/content//ASN.61195 45542 Performed By: #### 2 4323-8 #### GEORGIA GUNN ([id number]) [facility] ([facility]) [address] [place] [address] 40599 Glucose [Mass/Vol] 106 mg/dL High 74-99 [facility] Comment on above: Performed By: #### 2 4323-8 #### GEORGIA GUNN ([id number]) [facility] ([facility]) [address] [place] [address] 53438 Potassium [Moles/Vol] 4.3 mmol/L Normal 3.5-5.3 [facility] Comment on above: Performed By: #### 2 4323-8 #### GEORGIA GUNN ([id number]) [facility] ([facility]) [address] [place] [address] 69063 Protein [Mass/Vol] 6.9 g/dL Normal 6.4-8.2 [facility] Comment on above: Performed By: #### 2 4323-8 #### GEORGIA GUNN ([id number]) [facility] ([facility]) [address] [place] [address] 13530 Sodium [Moles/Vol] 139 mmol/L Normal 136-145 [facility] Comment on above: Performed By: #### 2 4323-8 #### GEORGIA GUNN ([id number]) [facility] ([facility]) [address] [place] [address] 94394 Urea nitrogen [Mass/Vol] 19 mg/dL Normal 6-23 [facility] Comment on above: Performed By: #### 2 4323-8 #### GEORGIA GUNN ([id number]) [facility] ([facility]) [address] [place] [address] 69335 Lipid 1996 panelon 4 Cholesterol [Mass/Vol] 121 mg/dL Normal 0-199 [facility] Comment on above: Result Comment: Age Desirable Borderline High High 0-19 Y 0 - 169 170 - 199 >/= 200 20-24 Y 0 - 189 190 - 224 >/= 225 >24 Y 0 - 199 200 - 239 >/= 240 All ranges are based on fasting samples. Specific therapeutic targets will vary based on patient-specific cardiac risk. Pediatric guidelines reference:Pediatrics 2011, 128(S5).Adult guidelines reference: NCEP ATPIII Guidelines,RACHID 2001, 258:2486-97 Venipuncture immediately after or during the administration of Metamizole may lead to falsely low results. Testing should be performed immediately prior to Metamizole dosing. Performed By: #### 2 4331-1 #### GEORGIA GUNN ([id number]) [facility] ([facility]) [facility] [place] [address] Cholesterol in HDL [Mass/Vol] 49.0 mg/dL Normal [facility] Comment on above: Result Comment: Age Very Low Low Normal High 0-19 Y < 35 < 40 40-45 ---- 20-24 Y ---- < 40 >45 ---- >24 Y ---- < 40 40-60 >60 Performed By: #### 2 4331-1 #### GEORGIA GUNN ([id number]) [facility] ([facility]) [address] [place] [address] 02532 Cholesterol in LDL [Mass/Vol] 41 mg/dL Normal <=99 [facility] Comment on above: Result Comment: Near Borderline AGE Desirable Optimal High High Very High 0-19 Y 0 - 109 --- 110-129 >/= 130 ---- 20-24 Y 0 - 119 --- 120-159 >/= 160 ---- >24 Y 0 - 99 100-129 130-159 160-189 >/=190 Performed By: #### 2 4331-1 #### GEORGIA GUNN ([id number]) [facility] ([facility]) [address] [place] [address] 93067 Cholesterol in VLDL [Mass/Vol] 31 mg/dL Normal 0-40 [facility] Comment on above: Performed By: #### 2 4331-1 #### GEORGIA GUNN ([id number]) [facility] ([facility]) [facility] [place] [address] CHOLESTEROL/HDL RATIO 2.5 Normal [facility] Comment on above: Result Comment: Ref Values Desirable < 3.4 High Risk > 5.0 Performed By: #### 2 4331-1 #### GEORGIA GUNN ([id number]) [facility] ([facility]) [facility] [place] [address] NON HDL CHOLESTEROL 72 mg/dL Normal 0-149 [facility] Comment on above: Result Comment: Age Desirable Borderline High High Very High 0-19 Y 0 - 119 120 - 144 >/= 145 >/= 160 20-24 Y 0 - 149 150 - 189 >/= 190 ---- >24 Y 30 mg/dL above LDL Cholesterol goal Performed By: #### 2 4331-1 #### GEORGIA GUNN ([id number]) [facility] ([facility]) [address] [place] [address] 46770 Triglyceride [Mass/Vol] 153 mg/dL High 0-149 [facility] Comment on above: Result Comment: Age Desirable Borderline High High Very High 0 D-90 D 19 - 174 ---- ---- ---- 91 D- 9 Y 0 - 74 75 - 99 >/= 100 ---- 10-19 Y 0 - 89 90 - 129 >/= 130 ---- 20-24 Y 0 - 114 115 - 149 >/= 150 ---- >24 Y 0 - 149 150 - 199 200- 499 >/= 500 Venipuncture immediately after or during the administration of Metamizole may lead to falsely low results. Testing should be performed immediately prior to Metamizole dosing. Performed By: #### 2 4331-1 #### GEORGIA GUNN ([id number]) [facility] ([facility]) [address] [place] [address] 24752 TSH WITH REFLEX TO FREE T4 I F ABNORMALon 08-21-2023 TSH Qn 0.64 m[IU]/L Normal 0.44-3.98 [facility] Comment on above: Order Comment: TSH t esting is performed using different testing methodology at [facility] than at other [facility]. Direct result comparisons should only be made within the same method. Performed By: #### T HYDS #### GEORGIA GUNN ([id number]) [facility] ([facility]) [address] [place] [address] XR SHOULDER RIGHT 2+ VIEWSon 08-21-2023 XR SHOULDER RIGHT 2+ VIEWS Interpreted By: Star Rodriguez, STUDY: XR SHOULDER RIGHT 2+ VIEWS INDICATION: Signs/Symptoms:right shoulder pain. COMPARISON: None ACCESSION NUMBER(S): [id number] ORDERING CLINICIAN: CASANDRA HWANG FINDINGS: No osseous, articular, or soft tissue abnormality. IMPRESSION: Normal radiographs right shoulder. Signed by: Star Rodriguez 08/23/2023 5:42 PM Dictation workstation: [id number] [facility] CT L-SPINE WO CONTRASTon CT L-SPINE WO CONTRAST Patient Name: OLIVIER JEFFRIES STUDY: CT L-SPINE WO CONTRAST; 08/11/2022 8:44 am INDICATION: Low back pain with radiation on right side . COMPARISON: None. ACCESSION NUMBER(S): [id number] ORDERING CLINICIAN: AUSTIN ALMAGUER TECHNIQUE: Unenhanced axial images were obtained through the lumbar spine. The axial data was utilized to reconstruct images in sagittal and coronal planes. FINDINGS: No acute fracture is identified. No subluxation is seen. Facet joints demonstrate a normal alignment. No evidence of spondylolysis. No suspicious lytic or blastic lesions. No paraspinal hematoma is evident. There is mild disc space narrowing, most conspicuous at the L5-S1 level. Mild endplate irregularity also noted, predominantly within the visible portions of the lower thoracic spine. There is a broad-based posterior disc protrusion/extrusion posterolaterally on the right at the L5-S1 level. This is in close proximity to the exiting L5 nerve root and may result in compression. MRI may be useful for further evaluation. At least 2 nonobstructing calculi are seen within the right kidney measuring 3 mm or less in size. IMPRESSION: No evidence of an acute fracture or subluxation. Degenerative changes, most conspicuous at the L5-S1 level. Broad-based posterolateral disc protrusion/extrusion on the right at L5-S1 which may result in compression of the exiting L5 nerve root. MRI may be useful further evaluation. Electronically signed by: SUMAN CHAVES MD [facility] Provider Note - ED v3on Provider Note - ED v3 Provider Note: Chart Review: ED NOTES ED NOTES: Source of Information: Patient. EMR was reviewed for previous records. HPI: Low back pain. This 27-year-old white male states that initially he had back problems 1-1/2 months ago he states that he was hanging sheet rock when suddenly had back spasms in the middle of his back involving thoracic spine. He states that after about a week and a half his symptoms then improved. He states that last week on Thursday began experiencing upper back soreness and then has developed pain in the lower back he states the pain is worse with movement of his lower extremities and driving. She denies any numbness tingling weakness or loss of bowel bladder control other focal neurologic symptoms or signs or symptoms concerning for cauda equina. He states that he has had increasing spasm in his back space with movement. States that rest helps to some extent but still has a lot discomfort. He denies any known injury to his lower back last week. PMH: Denies PSH: Denies Social Hx: The patient admits to smoking less than 1 pack/week. Admits to rare use of alcohol. Denies any illegal drug use. Fam: MEDS: Denies ALLERGIES: NKDA PHYSICAL EXAM: General: Patient alert, awake, oriented X3, appears to be in no obvious distress, nontoxic, cooperative Skin: Warm. Dry. Intact. No rash. Eyes: PEARTLA, EOMIs intact, sclera white, conjunctiva clear HEENT: Atraumatic. Normo-cephalic. Oral and nasal mucosa pink and moist. Neck: Supple without meningismus, no lymphadenopathy. CV: Regular rate and rhythm without murmurs, heaves, lifts or thrills. Respiratory: Nonlabored breathing. There are no retractions or tachypnea. Lungs are clear to auscultation bilaterally. GI: Soft, nontender, without gross distention, bowel sounds present in all 4 quadrants. There is no pulsatile masses. There is no CVA tenderness. No rebound, rigidity or guarding. MUSC: Evaluation of cervical, thoracic and lumbar spine is no midline tenderness crepitance or step-off. Patient does have some increased tenderness in the paraspinal muscles of the low lumbar spine at L3-L4 L4-5. Patient has no tenderness at the piriformis muscles. EHLs are plus 5 out of 5 and equal bilaterally. Patient does have increased pain with straight leg raise testing on the right side in seated position at 15 degrees though he denies any radicular symptoms. He is far less discomfort with straight leg raise testing on the left side in the seated position. Neuro: Cranial nerves II - XII grossly intact. No focal neurologic deficits are noted on exam. Lower extremities: There is no peripheral edema bilaterally, negative Homans sign. No palpable cords. Distal pulses are +2/4 and present in both lower extremities. Psych: Maintains eye contact. Cooperative. ED course: Patiet was seen and evaluated due to increasing low back pain that he describes as increased discomfort with movement primarily on the right side. He was treated with subcutaneous morphine, IM Norflex and IM Toradol. CT scan imaging of the lumbar spine was ordered and pending. Patient did get improvement of his pain with medications CT scan imaging revealed evidence of a herniated disc on the right side pushing on L5. I had a discussion with patient concerning his x-ray findings and he was discharged home prescriptions for her [place] after an OARRS report was obtained. Patient also was prescribed Naprosyn and prednisone. He was referred to a spine surgeon at [facility] and also for Workmen's Comp. follow-up. Patient was provided work restrictions due to his back injury.. This chart was dictated with the use of Monkimun software within the framework of the current electronic medical records software. Attempts were made to edit in real time, given time constraints there is the potential for inaccuracies in my dictation. Austin Almaguer, DO HISTORY OF PRESENTING ILLNESS OLIVIER is a 27 year old Male and was seen by me at 11-Aug-2022 07:50 for a chief complaint of back pain (Patient to [facility] reference lower back pain. Patient hurt his lower back 1 1/2 month ago while carrying dry wall at work and it got better. 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 He now has tingling in his legs while sitting/driving and has trouble li (more content not included)... Normal [facility] Provider Note - ED v3on 05-0 Provider Note - ED v3 Provider Note: Chart Review: ED NOTES ED NOTES: Patient presents for evaluation of sinus pressure. Patient reports 1 week of progressively worsening maxillary sinus pain, nasal congestion, and headache. There is reported mild postnasal drip and ear pressure. No fever, cough, or other constitutional signs and symptoms. Symptoms have been refractory to myff-qhe-iucqbkg medications. HISTORY OF PRESENTING ILLNESS OLIVIER is a 27 year old Male and was seen by me at 04-Aug-2022 17:13. Triage Information: Most recent Vital Sign Value Date PAST MEDICAL HISTORY ALLERGIES/INTOLERANCE S: No Known Allergies HEALTH HISTORY: No documented data. OUTPATIENT MEDICATIONS: Home Medications Review Status for Reconciliation: Complete Med Status: Patient Currently Takes Medications Drug Name: amoxicillin-clavulana te 875 mg-125 mg oral tablet Instructions: 1 tab(s) orally 2 times a day SIGNIFICANT EVENTS: Past Medical History Description:chronic constipation Past Surgical History Description:T & A REVIEW OF SYSTEMS All other systems reviewed and are negative REVIEW OF SYSTEMS: Comments See HPI PHYSICAL EXAM CONSTITUTIONAL: Dull nasally voice but appears well nourished, awake, alert, oriented to person, place, time/situation and in no apparent distress. HENMT: Airway patent, ears with clear tympanic membranes bilaterally. Nasal mucosa clear. Mouth with normal mucosa. Throat has no vesicles, no oropharyngeal exudates and uvula is midline. Face with maxillary sinus tenderness bilaterally. No lymphadenopathy. EYES: Clear bilaterally, pupils equal, round and reactive to light. CARDIOVASCULAR: Normal rate, regular rhythm. Heart sounds S1, S2. No murmurs, rubs or gallops. PMI non-displaced. RESPIRATORY: Breath sounds clear and equal bilaterally. NEUROLOGICAL: Alert and oriented, no focal deficits, no motor or sensory deficits. SKIN: Skin normal color for race, warm, dry and intact. No evidence of trauma. PSYCHIATRIC: Alert and oriented to person, place, time/situation. normal mood and affect. No apparent risk to self or others. CRITICAL CARE VITAL SIGNS: T PRBP SpO2O2(LPM) %FiO2 Method 04-Aug-2022 17:03:[id number]/ 86 98 MDM MDM/ED COURSE: Discussed Findings with: patient Data Reviewed: vital signs Treatment Plan: Rx Augmentin. Encouraged pt to continue otc cold remedies PRN, push by mouth fluids and rest. Patient's clinical presentation is otherwise unremarkable at this time. Patient is discharged with instructions to follow-up with primary care or seek emergency medical attention for worsening symptoms or any new concerns. DISPOSITION Diagnosis/Annotation: ED Dx Name:Acute sinusitis Code:J01.90 Disposition: discharged Type: home CONSULT CRITICAL CARE TIME Is this a critically ill patient: no Electronic Signatures: Rafal Bergeron (CHALK CUTTER-CRUSHER OPERATOR) (Signed 04-Aug-2022 17:25) Authored: ED Notes, HPI, PMH, ROS, PE, Results/Vital Signs, MDM/ED Course, Clinical Impression, Attestation, Chart Review, Scores Last Updated: 04-Aug-2022 17:25 by Rafal Bergeron (CHALK CUTTER-CRUSHER OPERATOR) Normal [facility] GROUP A STREP,PCRon 02-07-20 22 GROUP A STREP,PCR Not detected Normal Not Detected [facility] Comment on above: Result Comment: This test was performed utilizing an FDA-cleared rapid nucleic acid amplification by PCR to qualitatively detect Group A Streptococci from throat swab specimens without the need for culture confirmation of negative results. Performed By: #### G APC1 #### [place] [address] Lab Specimen Source Throat Normal [facility] Comment on above: Performed By: #### G APC1 #### [place] [id number] Provider Note - ED v3on 11-0 Provider Note - ED v3 Provider Note: Chart Review HISTORY OF PRESENTING ILLNESS OLIVIER is a 26 year old Male and was seen by me at 06-Feb-2022 13:13. The historian is the patient. Triage Information: Most recent Vital Sign Value Date PAST MEDICAL HISTORY ALLERGIES/INTOLERANCE S: No Known Allergies HEALTH HISTORY: No known health issues. Family history: no pertinent history. Social history: current 1/4 PPD smoker. Employed -works in construction. Has a young son. OUTPATIENT MEDICATIONS: Home Medications Review Status for Reconciliation: Complete Med Status: Patient Currently Takes Medications Drug Name: Zithromax Z-Mik 250 mg oral tablet Instructions: 2 tab(s) by mouth at once on day 1, then 1 tablet once a day on days 2-5 SIGNIFICANT EVENTS: Past Medical History Description:chronic constipation Past Surgical History Description:T & A No other known significant events or other known past surgical history. Has received 1 dose of the COVID-19 vaccine. CRITICAL CARE VITAL SIGNS: T PRBP SpO2O2(LPM) %FiO2 Method 06-Feb-2022 12:30:[id number]/ 68 96 MDM MDM/ED COURSE: This note was generated with voice recognition software and may contain errors including spelling, grammar, syntax, and misrecognization of what was dictated Chief Complaint Sinus pressure/congestion, sore throat History of Present Illness Patient presents today with complaints of sinus pressure/pain/tendern ess bilat, sinus headaches, severe nasal congestion (not much drainage), and a sore throat - sxs started 2 days ago. He has also developed a productive cough with dark yellow phlegm, and has intermittent subjective fevers. He denies any chills, body aches, ear pain, rashes, abdominal pain, chest pain, wheezing/shortness of breath, urinary symptoms, nausea/vomiting, and diarrhea. Appetite is poor but is able to eat and drink fluids without difficulty; denies any loss of sense of taste or smell. Reports symptoms have not improved since onset, and sinus pressure seems to be getting a little worse. Has not tried any paoo-xql-akrdfig medications or home remedies for symptom management. Reports his young son is currently ill with similar sxs (he tested negative for strep); no other known ill contacts. Has received the COVID-19 vaccine x1; had COVID infection in 03/2022. Is a current smoker - ~1/4 PPD. No known history of asthma/COPD. Review of Systems 10 systems reviewed negative with exception of history of present illness listed above Physical Examination General: Mildly ill-appearing, pleasant male; alert and oriented, in no acute distress. + audible nasal congestion. Eyes: Pupils equal, round and reactive to light. No conjunctival erythema; no scleral icterus. HENT: + frontal, ethmoid, and maxillary sinus tenderness, with audible nasal congestion. Bilat ear canals clear/unremarkable, but TMs with clear effusions bilat; no erythema, and not bulging. Nasal mucosa moderately boggy and edematous. Airway patent, oral mucosa moist. Posterior pharynx mildly injected but without vesicles or oropharyngeal exudate aside from PND; tonsils absent. Uvula is midline. Trachea is midline. Managing oral secretions without difficulty. Neck: Supple. Mildly tender mobile anterior cervical lymphadenopathy bilat (L>R). Respiratory: Lungs are clear to auscultation; no wheezes, rhonchi, or rales. Respirations unlabored, Breath sounds are equal, Symmetrical chest wall expansion. Mild, semi-productive cough noted. Cardiovascular: Normal rate, Regular rhythm. Normal S1S2. No m/r/g. No peripheral edema. Gastrointestinal: Soft, non-tender, non-distended; no palpable masses or organomegaly. Bowel sounds normoactive. Musculoskeletal: Grossly normal Integumentary: Raymer, warm, dry, and intact. No rashes or skin discoloration appreciated. Neurologic: Alert and oriented, no focal deficits, no motor or sensory deficits. Cognition and Speech: Oriented, Speech clear and coherent. Psychiatric: Cooperative, Appropriate mood & affect. Medical Decision Making Course: Worsening; stable. Impression/Plan: No red flags on exam today. I have reviewed the COVID-19 algorithm, and counseled pt on current recommendations. Symptoms consistent with viral sinusitis with associated symptoms, but reviewed other potential etiologies, and per pt's request, strep test done - will contact with results. Patient declines COVID/influenza testing today d/t cost and being uninsured, but urged precautionary measures and to consider home testing. Suspect (pending negative strep test) that sxs are viral in nature, but per pt's request, rx for watch and wait Zithromax provided, with instructions to begin only if strep test is positive, OR if home COVID test is negative and symptoms not improving over the next 5-7 days. If started, advised should finish full course of antibiotics, even if (more content not included)... Normal [facility] EMERGENCY REPORTon 1 EMERGENCY REPORT [facility] EMERGENCY ROOM REPORT NAME ACCOUNT SEX AGE ADMIT DISCHARGE PT MED. RECORD# NUMBER DATE DATE TYPE OLIVIER JEFFRIES [id number] Sam 25 07/15/20 07/15/20 3 [id number] ROOM: ER DATE OF : 1995 DICTATING PHYSICIAN: Gemma Lozada CHIEF COMPLAINT: Wound recheck. HISTORY OF PRESENT ILLNESS: This is a 25-year-old male with no known significant past medical history. He was told that he possibly had MRSA prior to the weekend, approximately 4 days ago. He was discharged after undergoing an incision and drainage with antibiotic administration. He has been taking his antibiotic appropriately. He has no diabetes. Smokes cigarettes. reports it is healing well, however he needs a note for returning to work PAST MEDICAL HISTORY: None. PAST SURGICAL HISTORY: Tonsillectomy. SOCIAL HISTORY: He does smoke 1/2 pack of cigarettes a day. Lives with significant other. Does not drink or use other drugs. No IV drug abuse. REVIEW OF SYSTEMS: Ten systems are reviewed and otherwise negative. PHYSICAL EXAMINATION: In general, he is very well appearing. He is not in any acute distress. VITAL SIGNS: Blood pressure 162/91, heart rate 75, respires 16, temperature 98.9, oxygen saturation 98% on room air. HEENT: Normal. NECK: Supple. HEART: Regular. LUNGS: Clear. ABDOMEN: He has a small abscess around the mid axillary line, on the lateral aspect of the right flank. It does appear to be healing well without surrounding cellulitis or purulent drainage. It is not packed. Abdomen is soft, nondistended and nontender. Good capillary refill. MEDICAL DECISION MAKING: This is a 25-year-old male here with concerns as above. Normal vital signs. No acute distress. Taking medications appropriately. Wound is healing well. PLAN/DISPOSITION: He needs a work note as he was told that he possibly had MRSA. He can return to work tomorrow. Questions were sought and answered. Return precautions were discussed. PCP followup encouraged. Dictated By: Gemma Lozada DO Page 1 of 2 OLIVIER JEFFRIES Emergency Room Report MERVIN OLIVIER : 1995 07/15/20 20:54 JOB #: [id number] Transcribed By: margret 07/16/20 12:26 Electronically signed by: DR. GEMMA LOZADA DO 07/27/20 20:17 Page 2 of 2 OLIVIER JEFFRIES Emergency Room Report Normal [facility] EMERGENCY REPORTon 1 EMERGENCY REPORT [facility] EMERGENCY ROOM REPORT NAME ACCOUNT SEX AGE ADMIT DISCHARGE PT MED. RECORD# NUMBER DATE DATE TYPE MERVIN OLIVIER [id number] M 25 07/12/20 07/12/20 3 [id number] ROOM: ER DATE OF : 1995 DICTATING PHYSICIAN: Lewis Oliver CHIEF COMPLAINT: Right axilla pain and swelling. HISTORY OF PRESENT ILLNESS: The patient states about 3 days ago he started with what he thought was a small pimple to the right axilla area. He squeezed it trying to get a little pus out, but states that very little, if anything, came out. Since then, he has been having increasing pain, redness, and swelling to this area with somewhat of a dark central core. It is very painful particularly with any movement. He has had no fever or chills. No other injuries or complaints. He states that several years ago he developed cellulitis to his elbow and had to be in the hospital for a couple of days on IV antibiotics. Other than that, he has not had anything similar to this in the past. PAST MEDICAL HISTORY: Past medical history is negative for any medical problems. PAST SURGICAL HISTORY: No previous surgeries. MEDICATIONS: He takes no medications. ALLERGIES: No allergies. SOCIAL HISTORY: He lives at home. He does not smoke. He drinks alcohol occasionally. He works locally. PHYSICAL EXAMINATION: This is a 25-year-old well-nourished, developed male alert, appropriate, and does not appear toxic or in acute distress. His skin is pink, warm, and dry. Vital signs essentially all normal as noted on the chart. Exam is focused to the chest wall/right axilla, which shows what appears to be about a handball sized area of redness, swelling, and induration with a central dark scabbed core about 0.5 cm. No open areas. This is very consistent and nearly diagnostic of MRSA abscess. No other lesions seen. EMERGENCY DEPARTMENT COURSE AND TREATMENT: I discussed management with him. I recommended I&D. The area was anesthetized with 1% lidocaine with epinephrine and then an incision about a centimeter long and a cross half centimeter x incision was made across the core, and explored and extended with forceps to get into the abscess cavity. This was irrigated, and a vgfkr-[id number] amount of purulent drainage was obtained. A small amount of iodoform packing was placed in this area to keep it open. A dressing was placed. Page 1 of 2 OLIVIER JEFFRIES Emergency Room Report OLIVIER JEFFRIES : 1995 DIAGNOSIS: Right axilla skin abscess with incision and drainage, probable Methicillin-resistant Staphylococcus aureus. PLAN/DISPOSITION: He was given a prescription for Bactrim DS, small amount of Jackson for pain. I recommended not working his job today, proceeding tomorrow as needed. Abscess/wound care instructions were given. He is to return if he has no significant improvement or in a couple of days for packing removal. Dictated By: Lewis Oliver MD 07/12/20 07:48 JOB #: [id number] Transcribed By: am 07/12/20 15:31 Electronically signed by: ULISSES Oliver M.D. 07/16/20 07:23 Page 2 of 2 OLIVIER JEFFRIES Emergency Room Report Normal [facility] EMERGENCY REPORTon 1 EMERGENCY REPORT [facility] EMERGENCY ROOM REPORT NAME ACCOUNT SEX AGE ADMIT DISCHARGE PT MED. RECORD# NUMBER DATE DATE TYPE OLIVIER JEFFRIES [id number] M 25 06/20/20 06/20/20 3 [id number] ROOM: ER DATE OF : 1995 DICTATING PHYSICIAN: Wade Gunter HISTORY OF PRESENT ILLNESS: This is a 25-year-old male with no significant past medical history who presents with concern for alcohol intoxication. The patient was laying in the grass [place]. The patient had been drinking throughout the day to celebrate [employer]. He states that he just had too much to drink. He denies any fall or head injury. He denies any concomitant drug abuse. PAST MEDICAL HISTORY: None. PAST SURGICAL HISTORY: None. SOCIAL HISTORY: Current smoker. Intermittent alcohol user. Occasional illicit drug abuse. REVIEW OF SYSTEMS: Ten systems were reviewed and otherwise negative. PHYSICAL EXAMINATION: The patient appears well and nontoxic. Vital signs upon arrival: Blood pressure 143/88, pulse 98, respirations 16, temperature 97.7, and spO2 of 97% on room air. Head: Normocephalic without signs of trauma. Eyes: Extraocular motions are intact, PERRLA. Mouth: Buccal mucosa appears well hydrated. Neck: Trachea is midline. Supple. Full range of motion without tenderness to palpation. Lungs: Clear to auscultation bilaterally without wheezing. Heart: S1 and S2 appreciated without murmur. Abdomen: Soft and nontender. Musculoskeletal: Muscle strength is +5/5 in the upper and lower extremities. No tenderness to palpation. Neurologic: Alert and oriented x3. He is ambulatory within the department. No focal neurologic deficits. Skin: Clear. Psychiatric: Mood and affect are normal. EMERGENCY DEPARTMENT COURSE AND TREATMENT: The patient appears well and nontoxic. He is slightly intoxicated. He is alert and oriented, however, and can ambulate within the department. I spoke with his stepfather, who is coming to pick him up. I spoke again with his stepfather when he arrived, and he does have a sober ride. The patient again was ambulating within the department without difficulty. He will be discharged home and asked to follow up with primary care. He was asked to return for new or worsening symptoms. The patient was agreeable and stable at the time of discharge. DIAGNOSIS: Alcohol intoxication. Page 1 of 2 OLIVIER JEFFRIES Emergency Room Report OLIVIER JEFFRIES : 1995 Dictated By: Wade Gunter DO 07/02/20 08:09 JOB #: [id number] Transcribed By: brian 07/02/20 12:53 Electronically signed by: E-SIGN: Wade Gunter D.O. 07/10/20 07:25 Page 2 of 2 OLIVIER JEFFRIES Emergency Room Report Normal [facility] URINE COTININE TEST [[facility]]on 03-02-2020 COTININE Negative Normal NORMAL: NEGATIVE [facility] Comment on above: Result Comment: The COT One Step Cotinine Device (Urine) yields a positve result when the Cotinine in urine exceeds 200 ng/mL. A Cotinine concentration > 200 ng/mL indicates an active tobacco product user. The window of detection for Cotinine in urine at a cutoff level of 200 ng/mL is expected to be up to 2-3 days after nicotine use. Performed By: #### 2 [id number] #### [facility],[address] [place] [address] Acetamnphn Lvlon 04-17-2018 Acetaminoph Lvl <10 Normal 10-30 [facility] Comment on above: Performed By: #### 2 [id number] ####DOV [address] [place] [address] Auto Diffon 04-17-2018 Basophils Auto #/vol (Bld) 0.0 E3/mcL Normal 0.0-0.2 [facility] Comment on above: Order Comment: Order Added by Discern Expert. Performed By: #### 2 [id number] ####DOV [address]Rpmb[address] [place] [address] Basophils/100 WBC Auto (Bld) 0.5 % Normal 0.0-2.0 [facility] Comment on above: Order Comment: Order Added by Discern Expert. Performed By: #### 2 [id number] ####DOV [address] [place] [address] Eos Absolute 0.2 E3/mcL Normal 0.0-0.7 [facility] Comment on above: Order Comment: Order Added by Discern Expert. Performed By: #### 2 [id number] ####DOV [address]FqqRkck[address]21 [place] [address] Eosinophils/100 WBC Auto (Bld) 2.2 % Normal 0.0-11.0 [facility] Comment on above: Order Comment: Order Added by Discern Expert. Performed By: #### 2 [id number] ####DOV [address]yn[address] [place] [address] Lymphocytes Auto #/vol (Bld) 2.6 E3/mcL Normal 1.2-3.4 [facility] Comment on above: Order Comment: Order Added by Discern Expert. Performed By: #### 2 [id number] ####DOV [address] [place] [address] Lymphocytes/100 WBC Auto (Bld) 30.0 % Normal 20.0-55.0 [facility] Comment on above: Order Comment: Order Added by Discern Expert. Performed By: #### 2 [id number] ####DOV [address]NdfEfmt[address] [place] [address] [place] Absolute 0.6 E3/mcL Normal 0.0-0.7 [facility] Comment on above: Order Comment: Order Added by Discern Expert. Performed By: #### 2 348546 ####DOV [address]HgdXbpd35[address] [place] [address] Monocytes/100 WBC Auto (Bld) 6.4 % Normal 0.0-10.0 [facility] Comment on above: Order Comment: Order Added by Discern Expert. Performed By: #### 2 [id number] ####DOVChristy VegaYqsQvpm9631 [place] [address] Neutro Absolute 5.4 E3/mcL Normal 1.4-6.5 [facility] Comment on above: Order Comment: Order Added by Discern Expert. Performed By: #### 2 [id number] ####DOV [address] [place] [address] Neutro Auto 60.9 % Normal 37.0-75.0 [facility] Comment on above: Order Comment: Order Added by Discern Expert. Performed By: #### 2 359026 ####DOV [address] [place] [address] BMPon 04-17-2018 Anion gap 3 molar conc 12 mmol/L Normal 10-20 [facility] Comment on above: Performed By: #### 2 330157 ####DOV IvhGodd[address] [place] [address] Calcium mass conc 8.9 mg/dL Normal 8.6-10.3 [facility] Comment on above: Performed By: #### 2 269637 ####DOV [address]Hb[address] [place] [address] Chloride molar conc 107 mmol/L Normal 98-107 [facility] Comment on above: Performed By: #### 2 117279 ####DOV [address]feUyyv4[address] [place] [address] CO2 molar conc 27.0 mmol/L Normal 21.0-32.0 [facility] Comment on above: Performed By: #### 2 265834 ####DOV YjbXzmn8510 [place] [address] Creatinine mass conc 0.8 mg/dL Normal 0.5-1.3 [facility] Comment on above: Performed By: #### 2 242269 ####DOV YozJrgf6571 [place] [address] Glucose mass conc 101 mg/dL High 70-99 [facility] Comment on above: Performed By: #### 2 440566 ####DOV [address]MrnLxkr7514 [place] [address] Potassium molar conc 3.6 mmol/L Normal 3.5-5.3 [facility] Comment on above: Performed By: #### 2 263000 ####DOV [address]ZgzZrdw[address]208 [place] [address] Sodium molar conc 142 mmol/L Normal 136-145 [facility] Comment on above: Performed By: #### 2 016155 ####DOV [address] [place] [address] Urea nitrogen mass conc 11 mg/dL Normal 6-23 [facility] Comment on above: Performed By: #### 2 164698 ####DOV [address] [place] [address] Urea nitrogen/Creatinine mass ratio 13.8 ratio Normal 5.4-30.0 [facility] Comment on above: Performed By: #### 2 140591 ####DOV [address]YrpQsly[address] [place] [address] CBC w/ Auto Diffon 9 Erythrocyte distribution width Auto Ratio (RBC) 13.0 % Normal 11.5-14.5 [facility] Comment on above: Performed By: #### 2 670071 ####DOV [address] [place] [address] Hematocrit Auto Volume Fraction (Bld) 45.6 % Normal 42.0-52.0 [facility] Comment on above: Performed By: #### 2 744560 ####DOV [address]JluCcvo[address] [place] [address] Hemoglobin mass conc (Bld) 15.3 g/dL Normal 13.5-18.0 [facility] Comment on above: Performed By: #### 2 167014 ####DOV [address]JjtAjal[address] [place] [address] MCH Auto Entitic mass (RBC) 30.9 pg Normal 27.0-31.0 [facility] Comment on above: Performed By: #### 2 857076 ####DOV [address]DblWzxt[address] [place] [address] MCHC Auto mass conc (RBC) 33.5 g/dL Normal 33.0-37.0 [facility] Comment on above: Performed By: #### 2 400266 ####DOV [address]QquSmwh[address] [place] [address] MCV Auto Entitic volume (RBC) 92.4 fL Normal 78.0-100.0 [facility] Comment on above: Performed By: #### 2 731347 ####DOV [address]UbfXipn[address]397 [place] [address] Platelet mean volume Auto Entitic volume (Bld) 8.7 fL Normal 7.4-11.0 [facility] Comment on above: Performed By: #### 2 791678 ####DOVChristy FuentesWmeBybd1973 [place] [address] Platelets Auto #/vol (Bld) 278 E3/mcL Normal 130-400 [facility] Comment on above: Performed By: #### 2 817035 ####DOVChristy FuentesUpsDxfs0398 [place] [address] RBC Auto #/vol (Bld) 4.94 E6/mcL Normal 3.90-6.10 [facility] Comment on above: Performed By: #### 2 125700 ####DOVChristy FuentesCblAgcc8618 [place] [address] WBC Auto #/vol (Bld) 8.8 E3/mcL Normal 3.6-11.0 [facility] Comment on above: Performed By: #### 2 [id number] ####DOVChristy FuentesVgfVxcy2200 [place] [address] Ethanolon 04-17-2018 Ethanol Lvl 244 mg/dL Critically abnormal <=10 [facility] Comment on above: Result Comment: Crit ical Result (s) Called to and read back by: ERWIN PAYNE at: 04/17/2018 03:37:59 by:JASON Performed By: #### 1 [id number] ####DOV [address]Qzcm[address] [place] [address] Hep Func Panelon 04-17-2018 Albumin mass conc 4.6 g/dL Normal 3.4-5.0 [facility] Comment on above: Performed By: #### 2 624302 ####DOV [address]we[address] [place] [id number] Albumin/Globulin mass ratio 1.7 {ratio} Normal 1.1-1.9 [facility] Comment on above: Performed By: #### 2 458061 ####DOV [address]XndLbgp7816 [place] [address] Alk Phos 58 Int._Unit/L Normal 33-120 [facility] Comment on above: Performed By: #### 2 431985 ####DOV [address] [place] [address] ALT enzyme act/vol 27 Int._Unit/L Normal 10-52 [facility] Comment on above: Performed By: #### 2 353844 ####DOV [address] [place] [address] AST enzyme act/vol 28 Int._Unit/L Normal 9-39 [facility] Comment on above: Performed By: #### 2 357859 ####DOV [address] [place] [address] Bili Direct 0.08 mg/dL Normal 0.00-0.30 [facility] Comment on above: Performed By: #### 2 644003 ####DOV [address] [place] [address] Bili Indirect 0.28 mg/dL Normal [facility] Comment on above: Result Comment: No e stablished ranges available for the indirect bilirubin Performed By: #### 2 867092 ####DOV [address] [place] [address] Bili Total 0.36 mg/dL Normal 0.00-1.20 [facility] Comment on above: Performed By: #### 2 416591 ####DOV XfwLrre5973 [place] [address] Globulin Calculated mass conc (S) 3.0 g/dL Normal 2.0-4.0 [facility] Comment on above: Performed By: #### 2 121960 ####DOV NhxDjlh3918 [place] [address] Protein mass conc 7.3 g/dL Normal 6.4-8.2 [facility] Comment on above: Performed By: #### 2 077911 ####DOV DnxMsij9239 [place] [address] Salicylateon 04-17-2018 Salicylate Lvl <1.5 Low 4.0-20.0 [facility] Comment on above: Performed By: #### 2 742176 ####DOV [address]OuhItul[address] [place] [address] U Drug Screenon 04-17-2018 U Amph Scr Negative [facility] Comment on above: Performed By: #### 2 597375 ####DOV [address]IowGagz[address] [place] [address] U Carin Scr Negative [facility] Comment on above: Performed By: #### 2 482991 ####DOV [address]entesPphZtcd1458 [place] [address] U Benzodia Scr Negative [facility] Comment on above: Performed By: #### 2 891193 ####DOV [address]HhuEwbc[address]48 [place] [address] U Cannab Scr Positive [facility] Comment on above: Performed By: #### 2 543992 ####DOV FuentesRtjNbdz4699 [place] [address] U Cocaine Scr Negative [facility] Comment on above: Performed By: #### 2 254279 ####DOV [address]entesGsmEsou1238 [place] [address] U Opiate Scr Negative [facility] Comment on above: Performed By: #### 2 984017 ####DOV [address]HkmHyvu[address]97 [place] [address] U PCP Scr Negative [facility] Comment on above: Performed By: #### 2 378972 ####DOV [address]AdmKiin[address] [place] [address] eGFRon 04-17-2018 eGFR AA >60 [facility] Comment on above: Order Comment: Order added by Discern Expert. Performed By: #### 1 [id number] ####DOV FuentesCpgYtpe4957 [place] [address] GFR/1.73 sq M predicted among non-blacks MDRD vol rate/area (S/P/Bld) mL/min/{1.73_m2} [facility] Comment on above: Order Comment: Order added by Discern Expert. Performed By: #### 1 [id number] ####DOV [address] [place] [address] CMPon 11-16-2017 Albumin mass conc 4.6 g/dL Normal 3.2-5.0 [facility] Comment on above: Performed By: #### 2 978372 ####DOV [address] [place] [address] Albumin/Globulin mass ratio 1.6 {ratio} Normal 1.1-1.9 [facility] Comment on above: Performed By: #### 2 089407 ####DOV [address] [place] [address] Alk Phos 43 Int._Unit/L Normal 42-121 [facility] Comment on above: Performed By: #### 2 271701 ####DOV [address] [place] [address] ALT enzyme act/vol 23 Int._Unit/L Normal 10-40 [facility] Comment on above: Performed By: #### 2 040528 ####DOV [address] [place] [address] AST enzyme act/vol 20 Int._Unit/L Normal 10-42 [facility] Comment on above: Performed By: #### 2 614292 ####DOV [address] [place] [address] Bili Total 0.8 mg/dL Normal 0.2-1.0 [facility] Comment on above: Performed By: #### 2 687328 ####DOV [address] [place] [address] Calcium mass conc 9.5 mg/dL Normal 8.4-10.2 [facility] Comment on above: Performed By: #### 2 854888 ####DOV OfvSqzv5728 [place] [address] Chloride molar conc 103 mmol/L Normal 98-107 [facility] Comment on above: Performed By: #### 2 562962 ####DOV [address] [place] [address] CO2 molar conc 30.8 mmol/L High 24.0-30.0 [facility] Comment on above: Performed By: #### 2 357056 ####DOV GmeSyfh8572 [place] [address] Creatinine mass conc 0.6 mg/dL Normal 0.6-1.3 [facility] Comment on above: Performed By: #### 2 056149 ####ODV KloHilf[address]43 [place] [address] Globulin Calculated mass conc (S) 2.9 g/dL Normal 2.0-4.0 [facility] Comment on above: Performed By: #### 2 911228 ####DOV ZqpGgit1526 [place] [address] Glucose mass conc 85 mg/dL Normal 70-99 [facility] Comment on above: Performed By: #### 2 869993 ####DOV MqqQbwh2487 [place] [address] Potassium molar conc 3.8 mmol/L Normal 3.5-5.1 [facility] Comment on above: Performed By: #### 2 019846 ####DOV HdxDdcc3076 [place] [address] Protein mass conc 7.5 g/dL Normal 6.4-8.3 [facility] Comment on above: Performed By: #### 2 021825 ####DOV BfaOitq0188 [place] [address] Sodium molar conc 142 mmol/L Normal 136-145 [facility] Comment on above: Performed By: #### 2 324671 ####DOV VucUshh2292 [place] [address] Urea nitrogen mass conc 12 mg/dL Normal 7-18 [facility] Comment on above: Performed By: #### 2 597597 ####DOV NqiVlna0206 [place] [address] Urea nitrogen/Creatinine mass ratio 20.0 ratio Normal 5.4-30.0 [facility] Comment on above: Performed By: #### [id number] ####DOV [id number] [place] [address] eGFRon 11-16-2017 eGFR AA >60 Normal [facility] Comment on above: Order Comment: Order added by Discern Expert. Performed By: #### [id number] ####DOV [id number] [place] [address] GFR/1.73 sq M predicted among non-blacks MDRD vol rate/area (S/P/Bld) mL/min/{1.73_m2} Normal [facility] Comment on above: Order Comment: Order added by Discern Expert. Performed By: #### [id number] ####DOV [id number] [place] [address] Vital Signs Date Time Vital Sign Value Performing Clinician Facility 10-03-2024 14:52-0400 Body temperature 98.7 [degF] No Primary Care Physician [facility] 10-03-2024 14:52-0400 Diastolic blood pressure 108 mm[Hg] No Primary Care Physician [facility] 10-03-2024 14:52-0400 Heart rate 64 /min No Primary Care Physician [facility] 10-03-2024 14:52-0400 Respiratory rate 18 /min No Primary Care Physician [facility] 10-03-2024 14:52-0400 SaO2% (BldA) [Mass fraction] 98 % No Primary Care Physician [facility] 10-03-2024 14:52-0400 Systolic blood pressure 132 mm[Hg] No Primary Care Physician [facility] 10-03-2024 13:21-0400 Body height 187.96 cm No Primary Care Physician [facility] 03-21-2024 11:15-0500 Diastolic blood pressure 77 mm[Hg] Yelitza Rizvi MD Work Phone: [facility] 03-21-2024 11:15-0500 Heart rate 60 /min Yelitza Rizvi MD Work Phone: [facility] 03-21-2024 11:15-0500 Respiratory rate 16 /min Yelitza Rizvi MD Work Phone: [facility] 03-21-2024 11:15-0500 SaO2% (BldA) [Mass fraction] 96 % Yelitza Rizvi MD Work Phone: [facility] 03-21-2024 11:15-0500 Systolic blood pressure 144 mm[Hg] Yelitza Rizvi MD Work Phone: [facility] 03-21-2024 10:20-0500 Body temperature 97.2 [degF] Yelitza Rizvi MD Work Phone: [facility] 03-16-2024 09:07-0500 Body height 188 cm Yelitza Rizvi MD Work Phone: [facility] 03-16-2024 09:07-0500 Body mass index (BMI) [Ratio] 25.42 kg/m2 Yelitza Rizvi MD Work Phone: [facility] 03-16-2024 09:07-0500 Body weight 89.81 kg Yelitza Rizvi MD Work Phone: [facility] 02-26-2024 08:11-0500 Body height 182.9 cm Yelitza Rizvi MD Work Phone: [facility] 02-26-2024 08:11-0500 Body mass index (BMI) [Ratio] 27.37 kg/m2 Yelitza Rizvi MD Work Phone: [facility] 02-26-2024 08:11-0500 Body weight 91.54 kg Yelitza Rizvi MD Work Phone: [facility] 02-26-2024 08:11-0500 Diastolic blood pressure 75 mm[Hg] Yelitza Rizvi MD Work Phone: [facility] 02-26-2024 08:11-0500 Heart rate 63 /min Yelitza Rizvi MD Work Phone: [facility] 02-26-2024 08:11-0500 Respiratory rate 18 /min Yelitza Rizvi MD Work Phone: [facility] 02-26-2024 08:11-0500 SaO2% (BldA) [Mass fraction] 98 % Yelitza Rizvi MD Work Phone: [facility] 02-26-2024 08:11-0500 Systolic blood pressure 122 mm[Hg] Yelitza Rizvi MD Work Phone: [facility] 09-20-2023 19:45-0400 Diastolic blood pressure 81 mm[Hg] Kyung Townsend MD Work Phone: [facility] 09-20-2023 19:45-0400 Heart rate 78 /min Kyung Townsend MD Work Phone: [facility] 09-20-2023 19:45-0400 Respiratory rate 16 /min Kyung Townsend MD Work Phone: [facility] 09-20-2023 19:45-0400 SaO2% (BldA) [Mass fraction] 99 % Kyung Townsend MD Work Phone: [facility] 09-20-2023 19:45-0400 Systolic blood pressure 132 mm[Hg] Kyung Townsend MD Work Phone: [facility] 09-20-2023 18:37-0400 Body height 185.4 cm Kyung Townsend MD Work Phone: [facility] 09-20-2023 18:37-0400 Body mass index (BMI) [Ratio] 27.97 kg/m2 Kyung Townsend MD Work Phone: [facility] 09-20-2023 18:37-0400 Body temperature 98.29 [degF] Kyung Townsend MD Work Phone: [facility] 09-20-2023 18:37-0400 Body weight 96.16 kg Kyung Townsend MD Work Phone: [facility] 08-21-2023 14:49-0400 Body height 188 cm Casandra Hwang CHALK CUTTER-CRUSHER OPERATOR Work Phone: [facility] 08-21-2023 14:49-0400 Body mass index (BMI) [Ratio] 28.02 kg/m2 Casandra Quijanoman CHALK CUTTER-CRUSHER OPERATOR Work Phone: [facility] 08-21-2023 14:49-0400 Body weight 98.97 kg Casandra Hwang CHALK CUTTER-CRUSHER OPERATOR Work Phone: [facility] 08-21-2023 14:49-0400 Diastolic blood pressure 85 mm[Hg] Casandra Hwang CHALK CUTTER-CRUSHER OPERATOR Work Phone: [facility] 08-21-2023 14:49-0400 Heart rate 71 /min Casandra Hwang CHALK CUTTER-CRUSHER OPERATOR Work Phone: [facility] 08-21-2023 14:49-0400 Systolic blood pressure 145 mm[Hg] Casandra Hwang CHALK CUTTER-CRUSHER OPERATOR Work Phone: [facility] 12-16-2022 07:59-0400 Body height 182.8 cm No Pcp Required [facility] 12-16-2022 07:59-0400 Body temperature 97.52 [degF] No Pcp Required [facility] 12-16-2022 07:59-0400 Body weight 95.5 kg No Pcp Required [facility] 12-16-2022 07:59-0400 Diastolic blood pressure 81 mm[Hg] No Pcp Required [facility] 12-16-2022 07:59-0400 Heart rate 77 /min No Pcp Required [facility] 12-16-2022 07:59-0400 Respiratory rate 18 /min No Pcp Required [facility] 12-16-2022 07:59-0400 SaO2% (BldA) [Mass fraction] 98 % No Pcp Required [facility] 12-16-2022 07:59-0400 Systolic blood pressure 124 mm[Hg] No Pcp Required [facility] 12-16-2022 01:56-0400 Diastolic blood pressure 70 mm[Hg] No Pcp Required [facility] 12-16-2022 01:56-0400 Heart rate 80 /min No Pcp Required [facility] 12-16-2022 01:56-0400 Respiratory rate 16 /min No Pcp Required [facility] 12-16-2022 01:56-0400 SaO2% (BldA) [Mass fraction] 98 % No Pcp Required [facility] 12-16-2022 01:56-0400 Systolic blood pressure 154 mm[Hg] No Pcp Required [facility] 12-15-2022 23:15-0400 Body height 187.9 cm No Pcp Required [facility] 12-15-2022 23:15-0400 Body temperature 97.7 [degF] No Pcp Required [facility] 12-15-2022 23:15-0400 Body weight 95.5 kg No Pcp Required [facility] 08-11-2022 12:40-0400 Diastolic blood pressure 87 mm[Hg] No Pcp Required [facility] 08-11-2022 12:40-0400 Heart rate 69 /min No Pcp Required [facility] 08-11-2022 12:40-0400 Respiratory rate 16 /min No Pcp Required [facility] 08-11-2022 12:40-0400 SaO2% (BldA) [Mass fraction] 98 % No Pcp Required [facility] 08-11-2022 12:40-0400 Systolic blood pressure 127 mm[Hg] No Pcp Required [facility] 08-11-2022 09:49-0400 Body height 187.9 cm No Pcp Required [facility] 08-11-2022 09:49-0400 Body temperature 97.88 [degF] No Pcp Required [facility] 08-11-2022 09:49-0400 Body weight 100 kg No Pcp Required [facility] 02-06-2022 14:30-0400 Body height 185 cm No Pcp Required [facility] 02-06-2022 14:30-0400 Body temperature 98.42 [degF] No Pcp Required [facility] 02-06-2022 14:30-0400 Diastolic blood pressure 68 mm[Hg] No Pcp Required [facility] 02-06-2022 14:30-0400 Heart rate 81 /min No Pcp Required [facility] 02-06-2022 14:30-0400 SaO2% (BldA) [Mass fraction] 96 % No Pcp Required [facility] 02-06-2022 14:30-0400 Systolic blood pressure 124 mm[Hg] No Pcp Required [facility] 12-19-2020 19:23-0400 Body height 154.9 cm No Pcp Required [facility] 12-19-2020 19:23-0400 Body temperature 97.7 [degF] No Pcp Required [facility] 12-19-2020 19:23-0400 Diastolic blood pressure 88 mm[Hg] No Pcp Required [facility] 12-19-2020 19:23-0400 Heart rate 67 /min No Pcp Required [facility] 12-19-2020 19:23-0400 SaO2% (BldA) [Mass fraction] 97 % No Pcp Required [facility] 12-19-2020 19:23-0400 Systolic blood pressure 127 mm[Hg] No Pcp Required [facility] Encounters Encounter Date Encounter Type Care Provider Facility Start: 10-03-2024 End: 10-03-2024 Emergency department patient visit No Primary Care Physician -Emergency Department Work Phone: Start: 06-23-2024 End: 06-23-2024 Subsequent hospital visit by physician [facility] Comment on above: Arrived Start: 06-23-2024 End: 06-23-2024 ambulatory [facility] Start: 05-06-2024 End: 05-06-2024 Postop follow up visit related to original px Yelitza Rizvi MD Work Phone: [facility] Comment on above: Acute pain of right shoulder Start: 05-06-2024 End: 05-06-2024 Subsequent hospital visit by physician [facility] Comment on above: Arrived Start: 05-06-2024 End: 05-06-2024 ambulatory [facility] Ambulatory Start: 05-05-2024 End: 05-05-2024 ambulatory [facility] Start: 05-03-2024 End: 05-03-2024 ambulatory [facility] Start: 04-29-2024 End: 04-29-2024 ambulatory [facility] Start: 04-28-2024 End: 04-28-2024 ambulatory [facility] Start: 04-26-2024 End: 04-26-2024 ambulatory [facility] Start: 04-21-2024 End: 04-21-2024 ambulatory [facility] Start: 04-20-2024 End: 04-20-2024 ambulatory RADHA SAHU [facility] Start: 04-14-2024 End: 04-14-2024 ambulatory [facility] Start: 04-11-2024 End: 04-11-2024 ambulatory [facility] Start: 03-29-2024 End: 03-29-2024 Subsequent hospital visit by physician Uri [email or web address] [facility] Comment on above: Osteoarthritis of AC (acromioclavicular) joint Start: 03-29-2024 End: 03-29-2024 ambulatory [facility] Ambulatory Start: 03-29-2024 End: 03-29-2024 Postop follow up visit related to original px Yelitza Rizvi MD Work Phone: [facility] Comment on above: Osteoarthritis of AC (acromioclavicular) joint Start: 03-21-2024 End: 03-21-2024 Subsequent hospital visit by physician Yelitza Rizvi MD Work Phone: [facility] [place] Comment on above: Trigger middle finge r of left hand (Primary Dx); Decreased right shoulder range of motion Start: 03-16-2024 ambulatory [facility] Start: 02-26-2024 End: 02-26-2024 Office outpatient visit 40 minutes Yelitza Rizvi MD Work Phone: [facility] Comment on above: Acute pain of right shoulder Start: 02-26-2024 End: 02-26-2024 Subsequent hospital visit by physician [facility] Comment on above: Arrived Start: 02-26-2024 End: 02-26-2024 ambulatory [facility] Ambulatory Start: 02-02-2024 End: 02-02-2024 Office outpatient visit 25 minutes Yelitza Rizvi MD Work Phone: [facility] Comment on above: Acute pain of right shoulder; Shoulder tendonitis, right Start: 02-02-2024 End: 02-02-2024 ambulatory [facility] Start: 02-02-2024 End: 02-02-2024 Subsequent hospital visit by physician [facility] Comment on above: Arrived Start: 02-02-2024 End: 02-02-2024 ambulatory [facility] Start: 01-18-2024 End: 01-18-2024 ambulatory [facility] Start: 12-23-2023 End: 12-23-2023 Subsequent hospital visit by physician [facility] Comment on above: Arrived Shoulder tendonitis, right Start: 12-23-2023 End: 12-23-2023 Office outpatient visit 25 minutes Yelitza Rizvi MD Work Phone: [facility] Comment on above: Acute pain of right shoulder; Shoulder tendonitis, right Start: 12-23-2023 End: 12-23-2023 ambulatory [facility] Amb[facility] Start: 12-22-2023 End: 12-22-2023 Subsequent hospital visit by physician [facility] Comment on above: Arrived Start: 12-22-2023 End: 12-22-2023 [facility] Start: 11-24-2023 End: 11-24-2023 Subsequent hospital visit by physician [facility] Comment on above: Arrived Start: 11-24-2023 End: 11-24-2023 ambulatory [facility] Start: 10-07-2023 End: 10-07-2023 Office outpatient visit 25 minutes Libra Ha APRN-THUAN Work Phone: [facility] Comment on above: Shoulder tendonitis, right (Primary Dx); Osteoarthritis of AC (acromioclavicular) joint Start: 10-07-2023 End: 10-07-2023 ambulatory LIBRA HA [facility] Ambulatory Start: 09-20-2023 End: 09-20-2023 Emergency department patient visit Kyung Townsend MD Work Phone: [facility] Comment on above: Abrasion of face, in itial encounter (Primary Dx); Abrasion of scalp, initial encounter; Contusion of scalp, initial encounter; Contusion of face, initial encounter; Strain of neck muscle, initial encounter; Closed head injury, initial encounter Start: 09-07-2023 End: 09-07-2023 Office outpatient new 45 minutes Libra M Leland CHALK CUTTER-CRUSHER OPERATOR Work Phone: [facility] Comment on above: Shoulder tendonitis, right (Primary Dx); Acute pain of right shoulder; Osteoarthritis of AC (acromioclavicular) joint Start: 09-07-2023 End: 09-07-20[facility] Start: 08-27-2023 End: 08-27-2023 Subsequent hospital visit by physician Uri Mri [facility] Comment on above: Acute pain of right shoulder; Numbness and tingling of right arm Start: 08-27-2023 End: 08-27-2023 ambulatory CASANDRA Marcos [facility] Start: 08-21-2023 End: 08-21-2023 Subsequent hospital visit by physician Uri Matthews-Casa Fluoro 1 [facility] Comment on above: Acute pain of right shoulder; Numbness and tingling in right hand Start: 08-21-2023 End: 08-21-2023 Office outpatient new 45 minutes Casandra Hwang CHALK CUTTER-CRUSHER OPERATOR Work Phone: [facility] Comment on above: Acute pain of right shoulder (Primary Dx); Screening for cardiovascular condition; Screening for diabetes mellitus; Numbness and tingling of right arm Start: 08-21-2023 End: 08-21-2023 ambulatory [facility] Amb[facility] Start: 12-16-2022 End: 12-16-2022 Emergency department patient visit Brock Blackwood [facility] Emergency 04 Start: 12-15-2022 End: 12-16-2022 Emergency department patient visit Brock Blackwood [facility] Emergency 02 Start: 08-11-2022 End: 08-11-2022 Emergency department patient visit Austin Praveen Almaguer [facility] Emergency 13 Start: 08-04-2022 End: 08-04-2022 Emergency department patient visit Rafal Bergeron Facility:[id number] Start: 02-06-2022 End: 02-06-2022 Emergency department patient visit Shima Alas [facility] Start: 12-19-2020 End: 12-19-2020 Emergency department patient visit Kat Rosas [facility] Start: 07-15-2020 End: 07-15-2020 Emergency department patient visit GEMMA LOZADA [facility] Start: 07-12-2020 End: 07-12-2020 Emergency department patient visit DR LEWIS OLIVER [facility] Start: 06-20-2020 End: 06-20-2020 Emergency department patient visit WADE GUNTER [facility] Start: 03-02-2020 End: 03-02-2020 ambulatory [facility] Start: 12-09-2019 End: 12-09-2019 Patient encounter procedure [facility] Start: 04-17-2018 End: 04-17-2018 Emergency department patient visit Ciara Douglass Facility:[facility] Start: 11-16-2017 End: 11-17-2017 Patient encounter procedure Sadiq Elizondo Facility:[facility] Procedures Date Procedure Procedure Detail Performing Clinician Start: 06-23-2024 US Abdomen Yelitza thmoas MD Work Phone: Start: 05-06-2024 US Abdomen Yelitza thomas MD Work Phone: Start: 03-21-2024 PULSE OXIMETRY, CONTINUOUS Kb Mcintosh DO Work Phone: Start: 03-21-2024 PULSE OXIMETRY, SPOT Ro johny Rizvi MD Work Phone: Start: 02-26-2024 US Abdomen Yelitza thomas MD Work Phone: Start: 02-02-2024 US Abdomen Yelitza thomas MD Work Phone: Start: 12-23-2023 US Abdomen Yelitza thomas MD Work Phone: Start: 12-22-2023 US Abdomen Yelitza thomas MD Work Phone: Start: 11-24-2023 US Abdomen Yelitza thomas MD Work Phone: Start: 09-20-2023 Ct cervical spine w/ o contrast material Kyung Townsend MD Work Phone: Start: 09-20-2023 Ct head/brain w/o co ntrast material Kyung Townsend MD Work Phone: Start: 09-11-2023 Arthrocentesis aspir &/inj major jt/bursa w/us Libra Vargas Ha CHALK CUTTER-CRUSHER OPERATOR Work Phone: Start: 08-21-2023 XR SHOULDER RIGHT 2+ VIEWS CASANDRA HWANG Start: 08-21-2023 CBC W Auto Different ial panel - Blood CASANDRA HWANG Start: 08-21-2023 Comprehensive metabo lic 2000 panel - Serum or Plasma CASANDRA HWANG Start: 08-21-2023 Lipid panel CASANDRA ZARAGOZA AN Start: 08-21-2023 TSH WITH REFLEX TO F REE T4 IF ABNORMAL CASANDRA HWANG Start: 08-21-2023 Lipid 1996 panel - S deedee or Plasma Uri 1 Plan of Treatment Date Care Activity Detail Author Start: 2047 Zoster Vaccines (1 of 2) Zoster Vacc otilio (1 of 2) [facility] Start: 12-15-2032 DTaP/Tdap/Td Vaccine s (8 - Td or Tdap) DTaP/Tdap/Td Vaccines (8 - Td or Tdap) [facility] Start: 08-20-2028 Lipid panel Lipid Panel [facility] Start: 10-03-2024 [facility] Start: 06-10-2024 End: 06-10-2024 Patient encounter procedure 06/10/2024 9:45 AM EST Office Visit [facility] [address] [place] [phone] Yelitza Rizvi MD [address] [place] [address] [facility] Start: 05-10-2024 End: 05-10-2024 ambulatory 05/10/2024 11:30 AM EST Treatment [facility] [address] [place] [phone] Gage Justice, PT [address] [facility] [place] [address] [facility] Start: 04-29-2024 End: 04-29-2024 Patient encounter procedure 04/29/2024 8:00 AM EST Office Visit [facility] [address] [place] [phone] Yelitza Rizvi MD [address] [place] [phone] [facility] Start: 03-29-2024 End: 03-29-2024 Patient encounter procedure 03/29/2024 8:45 AM EST Office Visit [facility] [address] [place] [phone] Yelitza Rizvi MD [address] [place] [address] [facility] Start: 03-28-2024 End: 03-28-2025 XR Shoulder - right 2 Views XR shoulder right 2+ views Imaging Routine Osteoarthritis of AC (acromioclavicular) joint Expected: 03/28/2024, Expires: 03/28/2025 [facility] Service Area Work Phone: Comment on above: Expected: 03/28/2024 , Expires: 03/28/2025 Start: 03-21-2024 End: 03-21-2024 Admission to same day surgery center 03/21/2024 7:30 AM EST - 03/21/2024 9:50 AM EST Surgery [facility] [place] [address] [place] [address] Yelitza Rizvi MD [address] [place] [address] Arthroscoplc Shoulder with Subacromial Decompression and CA Ligament Relase [34273 (CPT )] [facility] [place] Comment on above: Arthroscoplc Shoulde r with Subacromial Decompression and CA Ligament Relase [85381 (CPT )] Start: 03-21-2024 End: 03-21-2024 Arthroscopy shoulder distal claviculectomy [facility] Start: 03-21-2024 End: 03-21-2024 Arthroscopy shoulder w/coracoacrm ligmnt release [facility] [place] Start: 03-21-2024 Subsequent hospital visit by physician 03/21/2024 6:00 AM EST Hospital Encounter [facility] [place] [address] [place] [address] Yelitza Rizvi MD [address] [place] [phone] [facility] [place] Start: 02-26-2024 End: 02-26-2024 Patient encounter procedure 02/26/2024 8:00 AM EST Office Visit [facility] [address] [place] [phone] Yelitza Rizvi MD [address] [place] [phone] [facility] Start: 01-29-2024 End: 01-29-2024 Patient encounter procedure 01/29/2024 9:15 AM EDT Office Visit [facility] [address] [place] [phone] Yelitza Rizvi MD [address] [place] [phone] [facility] Start: 12-23-2023 Subsequent hospital visit by physician 12/23/2023 11:49 AM EDT Hospital Encounter [facility] [address] [place] [phone] Shoulder tendonitis, right [facility] Comment on above: Shoulder tendonitis, right Start: 12-06-2023 COVID-19 Vaccine ( season) COVID-19 Vaccine ( season) [facility] Start: 12-06-2023 COVID-19 Vaccine ( season) COVID-19 Vaccine () [facility] Start: 12-06-2023 Influenza vaccination [facility] Start: 11-24-2023 End: 11-24-2023 Patient encounter procedure 11/24/2023 4:15 PM EDT Office Visit [facility] [address] [place] [phone] Yelitza Rizvi MD [address] [place] [address] [facility] Start: 10-07-2023 End: 10-07-2023 Patient encounter procedure 10/07/2023 9:15 AM EDT Office Visit [facility] [address] [facility] [address] [place] [phone] Libra Ha, CHALK CUTTER-CRUSHER OPERATOR [address] [facility] [place] [address] [facility] Start: 09-25-2023 End: 09-25-2023 Patient encounter procedure 09/25/2023 3:50 PM EDT Office Visit [facility] [address] [place] [phone] Casandra Hwang, CHALK CUTTER-CRUSHER OPERATOR [address] [facility] [place] [address] [facility] Start: 08-21-2023 End: 08-21-2023 ambulatory 08/21/2023 3:40 PM EDT Lab [facility] [address] [address] Screening for cardiovascular condition; Screening for diabetes mellitus [facility] Comment on above: Screening for cardio vascular condition; Screening for diabetes mellitus Start: 08-21-2023 Subsequent hospital visit by physician 08/21/2023 3:34 PM EDT Hospital Encounter [facility] [address] [place] [address] Acute pain of right shoulder; Numbness and tingling in right hand [facility] Comment on above: Acute pain of right shoulder; Numbness and tingling in right hand Start: 08-21-2023 End: 08-20-2024 CBC W Auto Differential panel - Blood [facility] Work Phone: Comment on above: Expected: 08/21/2023 (Approximate), Expires: 08/20/2024 Start: 08-21-2023 End: 08-20-2024 Comprehensive metabolic 2000 panel - Serum or Plasma [facility] Work Phone: Comment on above: Expected: 08/21/2023 (Approximate), Expires: 08/20/2024 Start: 08-21-2023 End: 08-20-2024 Lipid 1996 panel - Serum or Plasma [facility] Work Phone: Comment on above: Expected: 08/21/2023 (Approximate), Expires: 08/20/2024 Start: 08-21-2023 End: 08-20-2024 MR Shoulder - right Arthrogram MR arthrogram shoulder right Imaging Routine Acute pain of right shoulder Expected: 08/21/2023, Expires: 08/20/2024 [facility] Work Phone: Comment on above: Expected: 08/21/2023 , Expires: 08/20/2024 Start: 08-21-2023 End: 08-20-2024 TSH with reflex to Free T4 if abnormal [facility] Work Phone: Comment on above: Expected: 08/21/2023 (Approximate), Expires: 08/20/2024 Start: 08-21-2023 End: 08-20-2024 XR Shoulder - right 2 Views [facility] Service Area Work Phone: Comment on above: Expected: 08/21/2023 , Expires: 08/20/2024 Once for 1 Occurrenc es starting 08/21/2023 until 08/21/2023 Start: 12-16-2022 End: 12-16-2023 Lidocaine 1% - EPINEPHrine 1:100,000 Injectable SubCutaneous Once ; DOSE = 30 mL SubCutaneous Once Start: 15-Dec-2022 End: 15-Dec-2023 Ordered: 15-Dec-2022 Brock Blackwood [facility] Start: 12-05-2022 COVID-19 Vaccine () COVID-19 Vaccine () [facility] Start: 2016 Pneumococcal Vaccine : Pediatrics and At-Risk Adult Patients (1 of 2 - PCV) Pneumococcal Vaccine: Pediatrics and At-Risk Adult Patients (1 of 2 - PCV) [facility] Start: 2012 HPV Vaccines (1 - Ma le 3-dose series) HPV Vaccines (1 - Male 3-dose series) [facility] Start: 2003 Pneumococcal Vaccine : Pediatrics (0 to 5 Years) and At-Risk Patients (6 to 64 Years) (1 of 2 - PCV) Pneumococcal Vaccine: Pediatrics (0 to 5 Years) and At-Risk Patients (6 to 64 Years) (1 of 2 - PCV) [facility] Start: 1997 HIV screening HIV Screening [facility] Start: 1997 Lipid panel Lipid Panel [facility] Start: 1997 Yearly Adult Physical Yearly Adult P hysical [facility] End: 03-21-2024 Blood type and Indirect antibody screen panel - Blood Type And Screen Lab Timed Decreased right shoulder range of motion As needed (Lab) until discontinued starting 03/21/2024 [facility] Service Area Work Phone: Comment on above: As needed (Lab) unti l discontinued starting 03/21/2024 End: 08-27-2023 MR Shoulder - right WO contrast [facility] Service Area Work Phone: Comment on above: Once for 1 Occurrenc es starting 08/27/2023 until 08/27/2023 Patient Education ED Back Spasm, No Traum a [facility] Work Phone: End: 12-23-2023 XR Shoulder - right 2 Views [facility] Service Area Work Phone: Comment on above: Once for 1 Occurrenc es starting 12/23/2023 until 12/23/2023 End: 03-29-2024 XR Shoulder - right 2 Views [facility] Work Phone: Comment on above: Once for 1 Occurrenc es starting 03/29/2024 until 03/29/2024 Immunizations Immunization Date Immunization Notes Care Provider Fa jeremy 12-15-2022 tetanus toxoid, redu carmen diphtheria toxoid, and acellular pertussis vaccine, adsorbed No Pcp Required [facility] Payers Date Payer Category Payer [employer] Mohan kapoor [employer] [facility] [id number] 2022 Unknown [id number] 2017 Unknown 1997 Unknown [id number] 2.16.840.1.081331.3.579.2. 1997 Unknown [id number] 2.16.840.1.925160.3.579.2. 7 1997 Unknown [id number] 2.16.840.1.480374.3.579.2. 1068 1997 Unknown [id number] 2.16.840.1.020209.3.579.2. 1068 1997 Unknown [id number] 2.16.840.1.807670.3.579.2. 1069 1997 Unknown [id number] 2.16.840.1.634938.3.579.2. 1244 1997 Unknown [id number] 2.16.840.1.955382.3.579.2. 1244 1997 Unknown [id number] 2.16.840.1.964521.3.579.2. 1244 1997 Unknown [id number] 2.16.840.1.594452.3.579.2. 124 1997 Unknown [id number] 2.16.840.1.755437.3.579.2. 1243 1997 Unknown [id number] 2.16.840.1.543211.3.579.2. 1243 1997 Unknown [id number] 2.16.840.1.364459.3.579.2. 1243 1997 Unknown [id number] 2.16.840.1.919119.3.579.2. 1243 1997 Unknown [id number] 2.16.840.1.050192.3.579.2. 1245 1997 Unknown [id number] 2.16.840.1.043454.3.579.2. 1244 1997 Unknown [id number] 2.16.840.1.360100.3.579.2. 1244 1997 Unknown [id number] 2.16.840.1.120905.3.579.2. 1244 1997 Unknown [id number] 2.16.840.1.629863.3.579.2. 1244 1997 Unknown [id number] 2.16.840.1.510092.3.579.2. 1244 1997 Unknown [id number] 2.16.840.1.763288.3.579.2. 1244 1997 Unknown [id number] 2.16.840.1.665148.3.579.2. 1244 1997 Unknown [id number] 2.16.840.1.112527.3.579.2. 1244 1997 Unknown [id number] 2.16.840.1.024585.3.579.2. 1244 1997 Unknown [id number] 2.16.840.1.275681.3.579.2. 1242 1997 Unknown [id number] 2.16.840.1.538869.3.579.2. 1242 1997 Unknown [id number] 2.16.840.1.029108.3.579.2. 1242 1997 Unknown [id number] 2.16.840.1.869211.3.579.2. 1242 1997 Unknown [id number] 2.16.840.1.533651.3.579.2. 1242 1997 Unknown [id number] 2.16.840.1.309881.3.579.2. 1242 1997 Unknown [id number] 2.16.840.1.284800.3.579.2. 1242 1997 Unknown [id number] 2.16.840.1.683737.3.579.2. 1242 1997 Unknown [id number] 2.16.840.1.402323.3.579.2. 1242 1997 Unknown [id number] 2.16.840.1.181968.3.579.2. 1242 1997 Unknown [id number] 2.16.840.1.655694.3.579.2. 1242 1997 Unknown [id number] 2.16.840.1.595956.3.579.2. 1242 1997 Unknown [id number] 2.16.840.1.426521.3.579.2. 1243 1997 Unknown [id number] 2.16.840.1.347753.3.579.2. 1243 1997 Unknown [id number] 2.16.840.1.359775.3.579.2. 1243 Self-pay [id number] Self-pay [id number] Unknown [id number] Unknown [id number] Unknown [id number] Social History Date Type Detail [facility] Work Phone: Start: 1995 Sex Assigned At Male [facility] Tobacco smoking consumption unknown [facility] Start: 08-21-2023 [facility] Work Phone: History of tobacco use Cigarette Smoker [facility] Work Phone: Start: 08-21-2023 Tobacco use and exposure Smokeless tobacco non-user [facility] Work Phone: Start: 08-21-2023 End: 05-06-2024 Alcoholic beverage intake Lifetime non-drinker (finding) [facility] Work Phone: Start: 1995 Sex assigned at Not on file [facility] Work Phone: Start: 08-21-2023 End: 05-06-2024 Gender identity Not on file [facility] Work Phone: Start: 08-11-2023 End: 05-05-2024 Exposure to SARS-CoV-2 (event) Not sure [facility] Start: 08-21-2023 End: 05-06-2024 History of Social function [facility] Work Phone: Start: 08-17-2023 End: 08-27-2023 Exposure to SARS-CoV-2 (event) Unable to assess [facility] Start: 10-03-2024 Tobacco smoking stat [facility] Never smoked tobacco (finding) [facility] Goals Date Patient Goal Desired Activity /State Clinical Notes 08-21-2023 to 10-03-2024 Note Date & Type Note Facility 10-03-2024 Discharge summary [facility] 10-03-2024 Discharge summary Note Date/Time October 03, 2024 2:55pm [facility] Medical Records Department [address] [place] [address] Emergency Department Summary 10/03/24 MR#: [id number] Acct: [id number] Name: OLIVIER JEFFRIES Rep #:[id number] : 1995 29 From: Matt hill DO PCP: Care Physician,No Primary Status :REG ER Location: ED HPI History of Present Illness Chief Complaint: Back Narrative Narrative: Chief complaint and HPI: Lumbar back pain. 29-year-old male with past medical history of herniated lumbar disks presents for evaluation of lumbar back pain. Patient states several years ago he was diagnosed with herniated lumbar disc. States he saw an orthopedic surgeon who recommended surgery however patient declined. States that he has been having intermittent low back pain. Has flared up over the last several days. Denies any injury or trauma. Denies any new numbness. States he periodically gets numbness and his lower extremities which is not uncommon. Denies weakness, urinary retention, stool or urinary incontinence, saddle anesthesia, recent invasive manipulation of the spine, intravenous drug use, or fever. Review of systems: See HPI Medications: As listed on the chart Allergies: As listed on the chart PFSH: Per chart Vital signs: As listed on the chart. Reviewed. Physical exam: Gen: A&O x3, NAD Head: Normocephalic, atraumatic Eyes: No sclera icterus, conjunctiva clear ENT: Moist mucous membranes Neck: Trachea midline, No JVD CV: RRR, no murmurs, no peripheral edema Resp: Lungs CTA BL, no w/r/c GI: Abd soft, non-distended, non-tender, no r/r/g Musc: Full ROM, no deformity, no midline spinal tenderness, no bony step-off, tenderness to palpation of the bilateral paraspinal musculature of the lower lumbar spine, no signs of trauma such as ecchymosis or cellulitis, strength +5/5in all extremities, DP/PT pulses +2 bilaterally, no saddle paresthesias, normal gait Skin: Warm, dry Neuro: Alert, oriented, grossly intact, sensation intact Psych: Cooperative, appropriate mood and affect [facility] Home Medications ?Medication ?Instructions ?Recorded ?Last Taken ?Type cyclobenzaprine 5 mg tablet 5 mg PO TID PRN muscle spa sm 3 10/03/24 Unknown Rx days #9 tabs Allergy/AdvReac Type Severity Reaction Status Date / Time Penicillins (PCN) Allergy PT UNABLE Verified 10/03/24 13:20 TO RESPOND-NEEDS F/U Social History (Updated 02/14/20 @ 13:39 by Michael OGLESBY, RENY) Smoking Status: Never smoker EXAM Physical Exam Const Vital Signs: 10/03/24 13:21 Temperature 98.7 F Temperature Source Temporal Pulse Rate 76 Respiratory Rate 20 H Blood Pressure 156/101 H Blood Pressure Mean 119 Pulse Ox 98 Oxygen Delivery Method Room Air MDM MDM MDM Narrative Medical decision making narrative: 29-year-old male with past medical history of herniated lumbar disks presents for evaluation of lumbar back pain. Patient states several years ago he was diagnosed with herniated lumbar disc. States he saw an orthopedic surgeon who recommended surgery however patient declined. States that he has been having intermittent low back pain. Has flared up over the last several days. On chartreview, I do not have any previous imaging of his back. There has been no trauma or new injury. Nothing to suggest an infectious etiology. He is not an IV drug abuser. No new neurological findings to suggest acute cauda equina syndrome or acute radiculopathy. At this point in time do not feel any emergentimaging such as x-rays or MRI are warranted. Patient symptoms will be treated with Valium and Toradol. Patient does have a ride home. Patient will be observed. On reevaluation, patient states his pain is improved and minimal. Patient stable to discharge home. Recommend following up outpatient with orthopedic surgery as well as PCP. Will be given a prescription for muscle relaxers. Okay for ibuprofen and Tylenol. Return precautions explained. He confirmed understanding of plan. Impression: 1. Lumbar back spasm 2. Chronic back pain Discharge Plan Triage Chief Complaint: Back ED Provider: Matt Barnes Dx/Rx/DC Orders Clinical Impression: Lumbar paraspinal muscle spasm Instructions: ED Back Spasm, No Trauma Prescriptions: New cyclobenzaprine 5 mg tablet 5 mg PO TID PRN (Reason: muscle spasm) 3 Days Qty: 9 0RF Primary Care Provider: Care Physician,No Primary Referrals: Jose Mc MD [Med Staff - Active Staff] - 3-5 Days Jean Frias MD [Med Staff - Active Staff] - 3-5 Days Activity Restrictions/Additional Instructions: Follow-up with orthopedic physician. Call to make an appointment. If you do not have a family doctor, follow-up with the one provided above. You received Toradol here in the emergency department, no ibuprofen for 8 hours. You received Valium here in the emergency department, no muscle relaxer for 8 hours. After that okay for ibuprofen and muscle relaxers. Okay for Tylenol. Recommend heating pad as well as IcyHot. Gentle stretching. Return back to theED if symptoms change or worsen. No driving or operating heavy machinery while taking muscle relaxers. Print Language: Citizen Of [place] Disposition Disposition: Home, Self Care What to do if you have Problems For any increased pain, shortness of breath, bleeding, nausea or vomiting, chestpain, or any unexpected problems, contact your Primary Care Provider. Call [facility] ([phone]) or report to the closest Emergency Room. Call 911 if necessary. 10/03/24 2585 <Electronically signed by Matt Barnes DO> Cosigner Signature (if applicable): CC: No Primary Care Physician ~ Signed [facility] Work Phone: 1(502) 921-160901-31-2025 Evaluation + Plan note* Assessment & Plan Note - Yelitza Rizvi MD - 05/06/2024 1:44 PM ESTAssociated Problem(s): Acute pain of right shoulder Assessment: 6 weeks and 4 days status post 03/21/2024 subacromial decompression and CA ligament resection with partial distal clavicle ectomy Plan: Continue with physical therapy range of motion and strengthening. Motrin 800 mg 1 p.o. twice daily or 3 times daily as needed pain take with meals use as directed Follow-up in 6 weeks for reevaluation [facility] Work Phone: 1(320) 893-753401-31-2025 Miscellaneous Notes* Assessment & Plan Note - Yelitza Rizvi MD - 05/06/2024 1:44 PM ESTAssociated Problem(s): Acute pain of right shoulder Assessment: 6 weeks and 4 days status post 03/21/2024 subacromial decompression and CA ligament resection with partial distal clavicle ectomy Plan: Continue with physical therapy range of motion and strengthening. Motrin 800 mg 1 p.o. twice daily or 3 times daily as needed pain take with meals use as directed Follow-up in 6 weeks for reevaluation [facility] Phone: 1(573) 760-667101-31-2025 History of Present illness Narrative* Yelitza Rizvi MD - 05/06/2024 8:45 AM EST Assessment/Plan Encounter Diagnoses: Acute pain of right shoulder Acute pain of right shoulder Assessment: 6 weeks and 4 days status post 03/21/2024 subacromial decompression and CA ligament resection with partial distal clavicle ectomy Plan: Continue with physical therapy range of motion and strengthening. Motrin 800 mg 1 p.o. twice daily or 3 times daily as needed pain take with meals use as directed Follow-up in 6 weeks for reevaluation Subjective Patient ID: Olivier Jeffries is a 29 y.o. male. Chief Complaint: Post-op of the Right Shoulder (SX:03/21/24///STARTED PT) Last Surgery: Arthroscoplc Shoulder with Subacromial Decompression and CA Ligament Relase - Right and Clavicle Resection - Right Last Surgery Date: 03/21/2024 HPI 28-year-old who is 6 weeks status post shoulder arthroscopy with a Fatuma procedure and a subacromial decompression. Patient comes in today stating he is making good progress. Sometimes he gets a burning pain into the anterior biceps area. OBJECTIVE: ORTHO EXAM Right shoulder exam His portals are sealed and well-healed. There is no drainage. Neurovascularly intact distally. He had forward elevation to 145 degrees and pure abduction to 125 degrees. He has extension to 30 degrees. External rotation was to 60. Internal rotation was cross-body. IMAGE RESULTS: Point of Care Ultrasound These images are not reportable by radiology and will not be interpreted by Radiologists. ULTRASOUND Procedures Orders Placed This Encounter Point of Care Ultrasound ibuprofen 800 mg tablet [facility] Work Phone: 1([phone]) 777-542312-24-2024 Evaluation + Plan note* Assessment & Plan Note - Yelitza Rizvi MD - 03/29/2024 9:14 AM ESTAssociated Problem(s): Osteoarthritis of AC (acromioclavicular) joint Assessment: 1 week status post 03/21/2024 shoulder arthroscopy with subacromial decompression and distal Fatuma procedure. Patient states the pain that he had preop is gone in the postoperative painis slowly diminishing. Plan: Motrin 800 mg p.o. 3 times daily as needed pain with meals. This was refilled today. Follow-up in 3 to 4 weeks for reevaluation. Physical therapy to start phase 1 Codman's advancing as tolerated. [facility] Work Phone: 1(171) 947-716312-24-2024 Miscellaneous Notes* Assessment & Plan Note - Yelitza Rizvi MD - 03/29/2024 9:14 AM ESTAssociated Problem(s): Osteoarthritis of AC (acromioclavicular) joint Assessment: 1 week status post 03/21/2024 shoulder arthroscopy with subacromial decompression and distal Fatuma procedure. Patient states the pain that he had preop is gone in the postoperative painis slowly diminishing. Plan: Motrin 800 mg p.o. 3 times daily as needed pain with meals. This was refilled today. Follow-up in 3 to 4 weeks for reevaluation. Physical therapy to start phase 1 Codman's advancing as tolerated. 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 Patient states the pain that he had preop is gone in the postoperative painis slowly diminishing. Plan: Motrin 800 mg p.o. 3 times daily as needed pain with meals. This was refilled today. Follow-up in 3 to 4 weeks for reevaluation. Physical therapy to start phase 1 Codman's advancing as tolerated. Subjective Patient ID: Olivier Jeffries is a 28 y.o. male. Chief Complaint: Post-op of the Right Shoulder (SX:03/21/24///STARTED PT) Last Surgery: Arthroscoplc Shoulder with Subacromial Decompression and CA Ligament Relase - Right and Clavicle Resection - Right Last Surgery Date: 03/21/2024 HPI 28-year-old who is 1 week status post shoulder arthroscopy with a Fatuma procedure and a subacromial decompression. Patient comes in today stating the preoperative pain is mainly gone he has some stiffness and pain associated with the surgery itself. OBJECTIVE: ORTHO EXAM Right shoulder exam He had some irritation from the tape. His portals are sealed and well-healed. There is no drainage. Neurovascularly intact distally. He had forward elevation to 45 degrees and pure abduction to 25 degrees. He has extension to 30 degrees. External rotation was to 10. Internal rotation was cross-body. IMAGE RESULTS: Point of Care Ultrasound These images are not reportable by radiology and will not be interpreted by Radiologists. ULTRASOUND Procedures Orders Placed This Encounter XR shoulder right 2+ views Referral to Physical Therapy ibuprofen 800 mg tablet [facility] Work Phone: [phone]) 459-527612-16-2024 Attending History and physical note* Yelitza Rizvi MD - 03/21/2024 7:25 AM EST H&P reviewed. The patient was examined and there are no changes to the H&P. Source Note - Yelitza Rizvi MD - 02/26/2024 8:00 AM EST Assessment/Plan Encounter Diagnoses: Acute pain of right shoulder Shoulder tendonitis, right Assessment: Right shoulder impingement syndrome, AC joint arthritis Plan: He is plan for surgery on 03/21/2024. Right shoulder arthroscopic subacromial decompression and partial distal clavulectomy. He understands that if I see a rotator cuff tear I would proceed with repair. This would lengthen his recovery. Surgical H&P was performed today. Surgical planning was performed. Follow-up a week after surgery for a wound check. Subjective Patient ID: Olivier Jeffries is a 28 y.o. male. Chief Complaint: Follow-up of the Right Shoulder (H&P for right shoulder surgery on 03/21/24/09-11-23 last rick inj/X-RAYS 12-23-23/STARTED PT) Last Surgery: No surgery found Last Surgery Date: No surgery found HPI 28-year-old with right shoulder AC joint arthritis and impingement syndrome. Comes in today for hispreoperative evaluation for 03/21/2024 planned surgery subacromial decompression and partial distalclavicle ectomy. OBJECTIVE: ORTHO EXAM Right shoulder exam Tender over the AC joint. Positive Neer sign. Tender over the anterior acromion. Range of motion was full but cross-body adduction aggravated his AC joint. 4+ supraspinatus strength 5 - infraspinatus strength 5/5 subscapularis strength. Neurovascularly intact distally. Review of Systems: Constitutional: NEGATIVE: Fever, Chills, Anorexia, Weight Loss, Malaise Eyes: NEGATIVE: Blurry Vision, Drainage, Diploplia, Redness, Vision Loss/ Change ENMT: NEGATIVE: Nasal Discharge, Nasal Congestion, Ear Pain, Mouth Pain, Throat Pain Respiratory: NEGATIVE: Dry Cough, Productive Cough, Hemoptysis, Wheezing, Shortness of Breath Cardiac: NEGATIVE: Chest Pain, Dyspnea on Exertion, Orthopnea, Palpitations, Syncope Gastrointestinal: NEGATIVE: Nausea, Vomiting, Diarrhea, Constipation, Abdominal Pain Genitourinary: NEGATIVE: Discharge, Dysuria, Flank Pain, Frequency, Hematuria Musculoskeletal: POSITIVE: Decreased ROM, Pain, Stiffness, Weakness; Neurological: NEGATIVE: Dizziness, Confusion, Headache, Seizures, Syncope Physical Examination: Constitutional: Well developed, awake/alert/oriented x3, no distress, alert and cooperative Eyes: PERRL, EOMI, clear sclera ENMT: mucous membranes moist, no apparent injury, no lesions seen Head/Neck: Neck supple, no apparent injury, thyroid without obvoius mass or tenderness, No JVD, trachea midline, no bruits Respiratory/Thorax: Patent airways, CTAB, normal breath sounds with good chest expansion, thorax symmetric Cardiovascular: Regular, rate and rhythm, mild systolic murmur, 2+ equal pulses of the extremities,normal S 1and S 2 Gastrointestinal: Nondistended, soft, non-tender, no rebound tenderness or guarding, no masses palpable, no organomegaly, +BS, no bruits Musculoskeletal: [See above] Extremities: normal extremities, no cyanosis edema, contusions, no clubbing Neurological: alert and oriented x3, intact senses, motor, normal strength Psychological: Appropriate mood and behavior Skin: Warm and dry, no lesions, no rashes IMAGE RESULTS: Point of Care Ultrasound These images are not reportable by radiology and will not be interpreted by Radiologists. Procedures Orders Placed This Encounter Point of Care Ultrasound [facility] Work Phone: 1([phone]) 370-614812-16-2024 History and physical note* Yelitza Rizvi MD - 03/21/2024 7:25 AM EST H&P reviewed. The patient was examined and there are no changes to the H&P. Source Note - Yelitza Rizvi MD - 02/26/2024 8:00 AM EST Assessment/Plan Encounter Diagnoses: Acute pain of right shoulder Shoulder tendonitis, right Assessment: Right shoulder impingement syndrome, AC joint arthritis Plan: He is plan for surgery on 03/21/2024. Right shoulder arthroscopic subacromial decompression and partial distal clavulectomy. He understands that if I see a rotator cuff tear I would proceed with repair. This would lengthen his recovery. Surgical H&P was performed today. Surgical planning was performed. Follow-up a week after surgery for a wound check. Subjective Patient ID: Olivier Jeffries is a 28 y.o. male. Chief Complaint: Follow-up of the Right Shoulder (H&P for right shoulder surgery on 03/21/24/09-11-23 last rick inj/X-RAYS 12-23-23/STARTED PT) Last Surgery: No surgery found Last Surgery Date: No surgery found HPI 28-year-old with right shoulder AC joint arthritis and impingement syndrome. Comes in today for hispreoperative evaluation for 03/21/2024 planned surgery subacromial decompression and partial distalclavicle ectomy. OBJECTIVE: ORTHO EXAM Right shoulder exam Tender over the AC joint. Positive Neer sign. Tender over the anterior acromion. Range of motion was full but cross-body adduction aggravated his AC joint. 4+ supraspinatus strength 5 - infraspinatus strength 5/5 subscapularis strength. Neurovascularly intact distally. Review of Systems: Constitutional: NEGATIVE: Fever, Chills, Anorexia, Weight Loss, Malaise Eyes: NEGATIVE: Blurry Vision, Drainage, Diploplia, Redness, Vision Loss/ Change ENMT: NEGATIVE: Nasal Discharge, Nasal Congestion, Ear Pain, Mouth Pain, Throat Pain Respiratory: NEGATIVE: Dry Cough, Productive Cough, Hemoptysis, Wheezing, Shortness of Breath Cardiac: NEGATIVE: Chest Pain, Dyspnea on Exertion, Orthopnea, Palpitations, Syncope Gastrointestinal: NEGATIVE: Nausea, Vomiting, Diarrhea, Constipation, Abdominal Pain Genitourinary: NEGATIVE: Discharge, Dysuria, Flank Pain, Frequency, Hematuria Musculoskeletal: POSITIVE: Decreased ROM, Pain, Stiffness, Weakness; Neurological: NEGATIVE: Dizziness, Confusion, Headache, Seizures, Syncope Physical Examination: Constitutional: Well developed, awake/alert/oriented x3, no distress, alert and cooperative Eyes: PERRL, EOMI, clear sclera ENMT: mucous membranes moist, no apparent injury, no lesions seen Head/Neck: Neck supple, no apparent injury, thyroid without obvoius mass or tenderness, No JVD, trachea midline, no bruits Respiratory/Thorax: Patent airways, CTAB, normal breath sounds with good chest expansion, thorax symmetric Cardiovascular: Regular, rate and rhythm, mild systolic murmur, 2+ equal pulses of the extremities,normal S 1and S 2 Gastrointestinal: Nondistended, soft, non-tender, no rebound tenderness or guarding, no masses palpable, no organomegaly, +BS, no bruits Musculoskeletal: [See above] Extremities: normal extremities, no cyanosis edema, contusions, no clubbing Neurological: alert and oriented x3, intact senses, motor, normal strength Psychological: Appropriate mood and behavior Skin: Warm and dry, no lesions, no rashes IMAGE RESULTS: Point of Care Ultrasound These images are not reportable by radiology and will not be interpreted by Radiologists. Procedures Orders Placed This Encounter Point of Care Ultrasound documented in this encounterWilson [facility] Work Phone: [phone] 174-305112-11-2024 Note* Preprocedure Instructions - Tara Lilly RN - 03/16/2024 9:04 AM EST No outpatient medications have been marked as taking for the 03/21/24 encounter (Hospital Encounter). NPO Instructions: Do not eat any food after midnight the night before your surgery/procedure. You may have clear liquids until TWO hours before surgery/procedure. This includes water, black tea/coffee, (no milk or cream) apple juice and electrolyte drinks (Gatorade). 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 NPO Instructions: Do not eat any food after midnight the night before your surgery/procedure. You may have clear liquids until TWO hours before surgery/procedure. This includes water, black tea/coffee, (no milk or cream) apple juice and electrolyte drinks (Gatorade). 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 Right shoulder arthroscopic subacromial decompression and partial distal clavulectomy. He understands that if I see a rotator cuff tear I would proceed with repair. This would lengthen his recovery. Surgical H&P was performed today. Surgical planning was performed. [facility] Work Phone: [phone]) 397-668011-22-2024 Miscellaneous Notes* Assessment & Plan Note - Yelitza Rizvi MD - 02/26/2024 8:31 AM ESTAssociated Problem(s): Shoulder tendonitis, right Assessment: Right shoulder impingement syndrome, AC joint arthritis Plan: He is plan for surgery on 03/21/2024. Right shoulder arthroscopic subacromial decompression and partial distal clavulectomy. He understands that if I see a rotator cuff tear I would proceed with repair. This would lengthen his recovery. Surgical H&P was performed today. Surgical planning was performed. documented in this encounterWilson [facility] Work Phone: [phone] 328-175811-22-2024 History of Present illness Narrative* Yelitza Rizvi MD - 02/26/2024 8:00 AM EST Assessment/Plan Encounter Diagnoses: Acute pain of right shoulder Shoulder tendonitis, right Assessment: Right shoulder impingement syndrome, AC joint arthritis Plan: He is plan for surgery on 03/21/2024. Right shoulder arthroscopic subacromial decompression and partial distal clavulectomy. He understands that if I see a rotator cuff tear I would proceed with repair. This would lengthen his recovery. Surgical H&P was performed today. Surgical planning was performed. Follow-up a week after surgery for a wound check. Subjective Patient ID: Olivier Jeffries is a 28 y.o. male. Chief Complaint: Follow-up of the Right Shoulder (H&P for right shoulder surgery on 03/21/24/09-11-23 last rick inj/X-RAYS 12-23-23/STARTED PT) Last Surgery: No surgery found Last Surgery Date: No surgery found HPI 28-year-old with right shoulder AC joint arthritis and impingement syndrome. Comes in today for hispreoperative evaluation for 03/21/2024 planned surgery subacromial decompression and partial distalclavicle ectomy. OBJECTIVE: ORTHO EXAM Right shoulder exam Tender over the AC joint. Positive Neer sign. Tender over the anterior acromion. Range of motion was full but cross-body adduction aggravated his AC joint. 4+ supraspinatus strength 5 - infraspinatus strength 5/5 subscapularis strength. Neurovascularly intact distally. Review of Systems: Constitutional: NEGATIVE: Fever, Chills, Anorexia, Weight Loss, Malaise Eyes: NEGATIVE: Blurry Vision, Drainage, Diploplia, Redness, Vision Loss/ Change ENMT: NEGATIVE: Nasal Discharge, Nasal Congestion, Ear Pain, Mouth Pain, Throat Pain Respiratory: NEGATIVE: Dry Cough, Productive Cough, Hemoptysis, Wheezing, Shortness of Breath Cardiac: NEGATIVE: Chest Pain, Dyspnea on Exertion, Orthopnea, Palpitations, Syncope Gastrointestinal: NEGATIVE: Nausea, Vomiting, Diarrhea, Constipation, Abdominal Pain Genitourinary: NEGATIVE: Discharge, Dysuria, Flank Pain, Frequency, Hematuria Musculoskeletal: POSITIVE: Decreased ROM, Pain, Stiffness, Weakness; Neurological: NEGATIVE: Dizziness, Confusion, Headache, Seizures, Syncope Physical Examination: Constitutional: Well developed, awake/alert/oriented x3, no distress, alert and cooperative Eyes: PERRL, EOMI, clear sclera ENMT: mucous membranes moist, no apparent injury, no lesions seen Head/Neck: Neck supple, no apparent injury, thyroid without obvoius mass or tenderness, No JVD, trachea midline, no bruits Respiratory/Thorax: Patent airways, CTAB, normal breath sounds with good chest expansion, thorax symmetric Cardiovascular: Regular, rate and rhythm, mild systolic murmur, 2+ equal pulses of the extremities,normal S 1and S 2 Gastrointestinal: Nondistended, soft, non-tender, no rebound tenderness or guarding, no masses palpable, no organomegaly, +BS, no bruits Musculoskeletal: [See above] Extremities: normal extremities, no cyanosis edema, contusions, no clubbing Neurological: alert and oriented x3, intact senses, motor, normal strength Psychological: Appropriate mood and behavior Skin: Warm and dry, no lesions, no rashes IMAGE RESULTS: Point of Care Ultrasound These images are not reportable by radiology and will not be interpreted by Radiologists. 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 As he hasgotten back to work his pain has come back again. He also has symptoms of subacromial impingement. His MRI shows some anterior labral tears but this does not seem to be associated with instability. He also has some partial-thickness rotator cuff tears. Plan: I discussed the risks and benefits of an arthroscopic procedure with the patient. The plan would taylor do a Fatuma distal clavicle resection and subacromial decompression. This could be done arthroscopically or possibly with an open approach. If the anterior labrum requires surgical repair this would be an option. I discussed the risks and benefits of tenotomy including the risk of a Shailesh muscle he understands this. We would also assess his rotator cuff and if needed perform cuff repair. He is tentatively planned for 03/21/2024. He will likely need about 3 months or more from his duties which require him to use a heavy hammer or sledge. He does understand that he may not be able to get back to this heavy use employment. Follow-up late February or march for his preoperative planning conference and history and physical. 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 As he hasgotten back to work his pain has come back again. He also has symptoms of subacromial impingement. His MRI shows some anterior labral tears but this does not seem to be associated with instability. He also has some partial-thickness rotator cuff tears. Plan: I discussed the risks and benefits of an arthroscopic procedure with the patient. The plan would taylor do a Fatuma distal clavicle resection and subacromial decompression. This could be done arthroscopically or possibly with an open approach. If the anterior labrum requires surgical repair this would be an option. I discussed the risks and benefits of tenotomy including the risk of a Shailesh muscle he understands this. We would also assess his rotator cuff and if needed perform cuff repair. He is tentatively planned for 03/21/2024. He will likely need about 3 months or more from his duties which require him to use a heavy hammer or sledge. He does understand that he may not be able to get back to this heavy use employment. Follow-up late February or early March for his preoperative planning conference and history and physical. 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 As he hasgotten back to work his pain has come back again. He also has symptoms of subacromial impingement. His MRI shows some anterior labral tears but this does not seem to be associated with instability. He also has some partial-thickness rotator cuff tears. Plan: I discussed the risks and benefits of an arthroscopic procedure with the patient. The plan would taylor do a Fatuma distal clavicle resection and subacromial decompression. This could be done arthroscopically or possibly with an open approach. If the anterior labrum requires surgical repair this would be an option. I discussed the risks and benefits of tenotomy including the risk of a Shailesh muscle he understands this. We would also assess his rotator cuff and if needed perform cuff repair. He is tentatively planned for 03/21/2024. He will likely need about 3 months or more from his duties which require him to use a heavy hammer or sledge. He does understand that he may not be able to get back to this heavy use employment. Follow-up late February or early March for his preoperative planning conference and history and physical. Subjective Patient ID: Olivier Jeffries is a 28 y.o. male. Chief Complaint: Follow-up of the Right Shoulder (Wants to discuss surgery/09-11-23 last rick inj/X-RAYS 12-23-23/STARTED PT) Last Surgery: No surgery found Last Surgery Date: No surgery found HPI 28-year-old with chondrolysis of the distal clavicle and symptoms of pain in the AC joint area and distal clavicle that comprise about 70 to 80% of his total pain pattern. He does complain of pain inthe apprehension position but he does not have apprehension per se for anterior dislocation. He gets his pain mainly with the use of a hammer or sledge.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 declines at this time Plan will be to follow-up here in approximately 3 to 4 weeks, sooner for changes or concerns. Patient in agreement with plan of care. This note was generated using [employer]kim[employer] software. It may contain errors in wording, punctuation or spelling. [facility] Work Phone: 1(468) 175-351606-07-2024 Miscellaneous Notes* Assessment & Plan Note - RU Zurita - 09/11/2023 10:36 AM EDTAssociated Problem(s): Osteoarthritis of AC (acromioclavicular) joint We reviewed symptom control with naproxen twice daily with food, Tylenol as needed and topical Voltaren gel or similar OTC anti-inflammatory product. Discussed no weight lifting, significant activity modification to limit any repetitive pulling, pushing, lifting motions of the right shoulder over the next couple of weeks Home exercises for rotator cuff provided, patient may begin in approximately 1 week and slowly advance to light resistance band the following week Offered work note to allow joint rest, declines at this time Plan will be to follow-up here in approximately 3 to 4 weeks, sooner for changes or concerns. Patient in agreement with plan of care. This note was generated using [employer] software. It may contain errors in wording, punctuation or spelling. [facility] Work Phone: 1(100) 558-305906-03-2024 History of Present illness Narrative* Libra Ha APRN-CRUSHER OPERATOR - 09/07/2023 4:00 PM EDTAssociated Order(s): L Inj/Asp: R subacromial bursa Subjective Patient ID: Olivier Jeffries is a 28 y.o. male. Chief Complaint: Pain of the Right Shoulder Right Shoulder Olivier is a pleasant 28-year-old presenting today for evaluation of right shoulder pain. Has had intermittent symptoms over the last couple of years, significantly aggravated since returning to work after being off for winter delays. Patient does heavy construction work with concrete, heavy repetitive lifting, pushing and pulling. Patient also active in weightlifting, approximately 4 to 5 days/week. Review of Systems Constitutional: Negative. HENT: Negative. Respiratory: Negative. Cardiovascular: Negative. Endocrine: Negative. Musculoskeletal: Positive for arthralgias. Skin: Negative. Neurological: Negative. Hematological: Negative. Psychiatric/Behavioral: Negative. Objective Right Shoulder Exam Tenderness The patient is experiencing tenderness in the acromioclavicular joint and biceps tendon. Range of Motion Active abduction: 90 External rotation: 20 Forward flexion: 90 Tests Apprehension: positive Cross arm: positive Impingement: positive Other Erythema: absent Sensation: normal Pulse: present Comments: Positive Yergason's, positive aggravation of symptoms with rotator cuff and bicep tendon testing. Full ROM of distal joints with no sx aggravation, distal motor and sensory intact, cap refill at 2 seconds. Image Results: MR shoulder right wo IV contrast Narrative: Interpreted By: Juno Maynard, STUDY: MRI of the right shoulder without IV contrast; 08/27/2023 7:51 pm INDICATION: Signs/Symptoms:right shoulder pain with n/t down arm, weakness. COMPARISON: 08/21/2023 ACCESSION NUMBER(S): [id number] ORDERING CLINICIAN: CASANDRA HWANG TECHNIQUE: MR imaging of the right shoulder was obtained without IV contrast. FINDINGS: ROTATOR CUFF TENDONS: There is mild supraspinatus and infraspinatus tendinosis without tear. The subscapularis tendon is intact. The teres minor tendon is intact. Humeral cystic changes at the infraspinatus tendon insertion. There is no edema or fatty atrophy of the rotator cuff musculature. BICEPS TENDON AND ROTATOR INTERVAL: Mild intra-articular long head biceps tendinosis without tear. The rotator interval is unremarkable. JOINTS: There is mild acromioclavicular degenerative change. There is relatively pronounced marrow edema of the distal clavicle with areas of subchondral irregularity which may reflect osteolysis. Evaluation of the glenohumeral articulation demonstrates no articular cartilage defects. No evidence of significant joint effusion. No significant bursal fluid collection. LABRUM: There is linear abnormal signal within the substance of the anterosuperior and anteroinferior labrum suspicious for tearing. OSSEOUS STRUCTURES: No focal marrow replacing lesions are identified. There is no fracture. SOFT TISSUES: The suprascapular nerve is intact at the suprascapular and spinoglenoid notches. Impression: Findings which may reflect a clavicular osteolysis with additional acromioclavicular osteoarthrosis. Correlate with history of acromioclavicular trauma or chronic repetitive micro trauma. Mild supraspinatus and infraspinatus tendinosis without tear. Mild long head biceps tendinosis. Probable anterosuperior and anteroinferior labral tearing. MACRO: None Signed by: Juno Maynard 08/28/2023 9:03 AM Dictation workstation: [id number] Patient ID: Olivier Jeffries is a 28 y.o. male. L Inj/Asp: R subacromial bursa on 09/11/2023 10:32 AM Indications: pain and joint swelling Details: 22 G needle, ultrasound-guided posterior approach Medications: 40 mg triamcinolone acetonide 40 mg/mL Outcome: tolerated well, no immediate complications We discussed risk and benefits of cortisone injection, patient wishes to proceed via verbal consent. Skin was prepped with Betadine, vapo coolant spray and alcohol. Administered injection of 40 mg Kenalog, 3 cc 1% lidocaine and 3 cc of 0.25% bupivacaine. Patient tolerated injection well with lidocaine suppression. No active bleeding, bandage applied to site. Procedure, treatment alternatives, risks and benefits explained, specific risks discussed. Consent was given by the patient. Immediately prior to procedure a time out was called to verify the correctpatient, procedure, equipment, manager support and site/side marked as required. Patient was prepped and draped in the usual sterile fashion. Assessment/Plan Encounter Diagnoses: Problem List Items Addressed This Visit ICD-10-CM Osteoarthritis of AC (acromioclavicular) joint M19.019 We reviewed symptom control with naproxen twice daily with food, Tylenol as needed and topical Voltaren gel or similar OTC anti-inflammatory product. Discussed no weight lifting, significant activity modification to limit any repetitive pulling, pushing, lifting motions of the right shoulder over the next couple of weeks Home exercises for rotator cuff provided, patient may begin in approximately 1 week and slowly advance to light resistance band the following week Offered work note to allow joint rest, declines at this time Plan will be to follow-up here in approximately 3 to 4 weeks, sooner for changes or concerns. Patient in agreement with plan of care. This note was generated using [employer]kim[employer] software. It may contain errors in wording, punctuation or spelling. Acute pain of right shoulder M25.511 Other Visit Diagnoses Codes Shoulder tendonitis, right - Primary M77.8 [facility] Work Phone: 1([phone]) 549-352705-17-2024 History of Present illness Narrative* RU Alegria - 08/21/2023 2:50 PM EDT Subjective Patient ID: Olivier Jeffries is a 28 y.o. male who presents for Establish Care and Shoulder Pain (Right x 3 years). HPI New patient establishing care. R shoulder pain, has been bothersome for 3 years, the pain has gotten worse recently. Occasionally has numbness and tingling that comes and goes. 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 He has significant decreased ROM and supraspinatus pain. Review of Systems Constitutional: Negative for chills, fatigue and fever. HENT: Negative for congestion, sinus pressure, sinus pain and sore throat. Eyes: Negative for pain, redness and itching. Respiratory: Negative for cough and shortness of breath. Cardiovascular: Negative for chest pain, palpitations and leg swelling. Gastrointestinal: Negative for abdominal pain, constipation, diarrhea, nausea and vomiting. Endocrine: Negative for cold intolerance and heat intolerance. Genitourinary: Negative for difficulty urinating, flank pain and hematuria. Musculoskeletal: Positive for joint swelling and myalgias. Negative for back pain and gait problem. Skin: Negative for color change. Neurological: Positive for weakness and numbness. Negative for dizziness and headaches. Psychiatric/Behavioral: Negative for hallucinations and suicidal ideas. Objective BP 145/85 (Patient Position: Sitting) Pulse 71 Ht 1.88 m (6' 2) Wt 99 kg (218 lb 3.2 oz) BMI 28.02 kg/m Physical Exam Vitals and nursing note reviewed. Constitutional: Appearance: Normal appearance. HENT: Right Ear: Tympanic membrane normal. Nose: Nose normal. Eyes: Extraocular Movements: Extraocular movements intact. Pupils: Pupils are equal, round, and reactive to light. Cardiovascular: Rate and Rhythm: Normal rate and regular rhythm. Pulmonary: Effort: Pulmonary effort is normal. Breath sounds: Normal breath sounds. Abdominal: General: Abdomen is flat. Bowel sounds are normal. Palpations: Abdomen is soft. Musculoskeletal: Right shoulder: Decreased range of motion. Decreased strength. Cervical back: Normal range of motion. Skin: General: Skin is warm and dry. Capillary Refill: Capillary refill takes less than 2 seconds. Neurological: Mental Status: He is alert and oriented to person, place, and time. Psychiatric: Mood and Affect: Mood normal. Behavior: Behavior normal. Assessment/Plan Problem List Items Addressed This Visit None Visit Diagnoses Codes Acute pain of right shoulder - Primary M25.511 Relevant Medications naproxen (Naprosyn) 500 mg tablet Other Relevant Orders XR shoulder right 2+ views MR arthrogram shoulder right Screening for cardiovascular condition Z13.6 Relevant Orders Lipid Panel Comprehensive Metabolic Panel CBC and Auto Differential TSH with reflex to Free T4 if abnormal Screening for diabetes mellitus Z13.1 Relevant Orders Comprehensive Metabolic Panel TSH with reflex to Free T4 if abnormal Numbness and tingling in right hand R20.0, R20.2 Relevant Medications naproxen (Naprosyn) 500 mg tablet Other Relevant Orders XR shoulder right 2+ views MR arthrogram shoulder right [facility] Work Phone: 1(468) 421-776505-17-2024 Instructions* Patient Instructions* RU Alegria - 08/21/2023 2:50 PM EDT -only take Naproxen, if you need breakthrough medication take tylenol only documented [facility] Work Phone: Evaluation note* Diagnosis Acute pain of right shoulder- Primary Screening for cardiovascular condition Screening for other and unspecified cardiovascular conditions Screening for diabetes mellitus Numbness and tingling of right arm Acute pain of right shoulder Numbness and tingling in right hand Disturbance of skin sensation Screening for cardiovascular condition Screening for other and unspecified cardiovascular conditions Screening for diabetes mellitus documented in this encounter [facility] Work Phone: [phone] note* Diagnosis Acute pain of right shoulder Numbness and tingling in right hand Disturbance of skin sensation documented in this encounter [facility] Work Phone: Evaluation note* Diagnosis Acute pain of right shoulder Numbness and tingling of right arm documented in this encounter [facility] Work Phone: [phone] note* Diagnosis Shoulder tendonitis, right- Primary Acute pain of right shoulder Osteoarthritis of AC (acromioclavicular) joint documented in this encounter [facility] Work Phone: Evaluation note* Diagnosis Abrasion of face, initial encounter- Primary Abrasion of scalp, initial encounter Contusion of scalp, initial encounter Contusion of face, initial encounter Strain of neck muscle, initial encounter Closed head injury, initial encounter documented in this encounter [facility] Work Phone: Evaluation note* Diagnosis Shoulder tendonitis, right- Primary Acute pain of right shoulder Osteoarthritis of AC (acromioclavicular) joint Shoulder tendonitis, right- Primary Osteoarthritis of AC (acromioclavicular) joint Acute pain of right shoulder Shoulder tendonitis, right Acute pain of right shoulder Shoulder tendonitis, right documented in this encounter [facility] Work Phone: Evaluation note* Diagnosis Shoulder tendonitis, right- Primary Acute pain of right shoulder Osteoarthritis of AC (acromioclavicular) joint Shoulder tendonitis, right- Primary Osteoarthritis of AC (acromioclavicular) joint Acute pain of right shoulder Shoulder tendonitis, right Acute pain of right shoulder Shoulder tendonitis, right Decreased right shoulder range of motion- Primary Acute pain of right shoulder Decreased right shoulder range of motion documented in this encounter [facility] Work Phone: Evaluation note* Diagnosis Shoulder tendonitis, right- Primary Osteoarthritis of AC (acromioclavicular) joint documented in this encounter [facility] Work Phone: Evaluation note* Diagnosis Shoulder tendonitis, right- Primary Acute pain of right shoulder Osteoarthritis of AC (acromioclavicular) joint Shoulder tendonitis, right- Primary Osteoarthritis of AC (acromioclavicular) joint Acute pain of right shoulder Shoulder tendonitis, right Acute pain of right shoulder Shoulder tendonitis, right Decreased right shoulder range of motion- Primary Decreased right shoulder range of motion Trigger middle finger of left hand Acute pain of right shoulder documented in this encounter [facility] Work Phone: Evaluation note* Diagnosis Shoulder tendonitis, right- Primary Acute pain of right shoulder Osteoarthritis of AC (acromioclavicular) joint Shoulder tendonitis, right- Primary Osteoarthritis of AC (acromioclavicular) joint Acute pain of right shoulder Shoulder tendonitis, right Shoulder tendonitis, right documented in this encounter [facility] Work Phone: Evaluation note* Diagnosis Shoulder tendonitis, right- Primary Acute pain of right shoulder Osteoarthritis of AC (acromioclavicular) joint Shoulder tendonitis, right- Primary Osteoarthritis of AC (acromioclavicular) joint Acute pain of right shoulder Shoulder tendonitis, right Shoulder tendonitis, right documented in this encounter [facility] Work Phone: Evaluation note* Diagnosis Shoulder tendonitis, right- Primary Acute pain of right shoulder Osteoarthritis of AC (acromioclavicular) joint Shoulder tendonitis, right- Primary Osteoarthritis of AC (acromioclavicular) joint Acute pain of right shoulder Shoulder tendonitis, right Acute pain of right shoulder Shoulder tendonitis, right Acute pain of right shoulder Osteoarthritis of AC (acromioclavicular) joint documented in this encounter [facility] Work Phone: Evaluation note* Diagnosis Shoulder tendonitis, right- Primary Acute pain of right shoulder Osteoarthritis of AC (acromioclavicular) joint Shoulder tendonitis, right- Primary Osteoarthritis of AC (acromioclavicular) joint Acute pain of right shoulder Shoulder tendonitis, right Acute pain of right shoulder Shoulder tendonitis, right Acute pain of right shoulder Osteoarthritis of AC (acromioclavicular) joint Osteoarthritis of AC (acromioclavicular) joint documented in this encounter [facility] Work Phone: Evaluation note* Diagnosis Shoulder tendonitis, right- Primary Acute pain of right shoulder Osteoarthritis of AC (acromioclavicular) joint Shoulder tendonitis, right- Primary Osteoarthritis of AC (acromioclavicular) joint Acute pain of right shoulder Shoulder tendonitis, right Acute pain of right shoulder Shoulder tendonitis, right Acute pain of right shoulder Osteoarthritis of AC (acromioclavicular) joint Acute pain of right shoulder Decreased shoulder mobility, right- Primary documented in this encounter [facility] Work Phone: Evaluation noteNo assessment information available [facility] Work Phone: Hospital Discharge instructions* Attachments The following attachments cannot be sent through Care Everywhere. * Head injury in adults (Citizen Of [place]) * Abrasions ED (Citizen Of [place]) * Cervical Muscle Strain Discharge Instructions (Citizen Of [place]) [facility]: Hospital Discharge instructionsAdditional Instructions Follow-up with orthopedic physician. Call to make an appointment. If you do not have a family doctor, follow-up with the one provided above. You received Toradol here in the emergency department, no ibuprofen for 8 hours. You received Valium here in the emergency department, no muscle relaxer for 8 hours. After that okay for ibuprofen and muscle relaxers. Okay for Tylenol. Recommend heating pad as well as IcyHot. Gentle stretching. Return back to the ED if symptoms change or worsen. No driving or operating heavy machinery while taking muscle relaxers.[facility] Work Phone: Reason for referral (narrative)* Consultation (Routine) - Authorized Specialty Diagnoses / Procedures Referred By Contac t Referred To Contact Orthopaedic Surgery / Orthopedic Surgery Diagnoses Shoulder tendonitis, right Osteoarthritis of AC (acromioclavicular) joint Procedures Follow Up In Orthopaedic Surgery Libra Ha, CHALK CUTTER-CRUSHER OPERATOR [address] [facility], [address] [place] [address] Referral ID Status Reason Start Date Expiration Date V isits Requested Visits Authorized [id number] Authorized 09/11/2023 09/10/2024 1 1 [facility] Work Phone: Revgll for referral (narrative)* Consultation (Routine) - Authorized Specialty Diagnoses / Procedures Referred By Contac t Referred To Contact Family Medicine / Primary Care Wade Gunter, DO [address] [place] [address] Department of Emergency Medicine [place] [phone] Referral ID Status Reason Start Date Expiration Date Visits Requested Visits Authorized [id number] Authorized Specialty Services Required 09/20/2023 09/19/2024 1 1 [facility] Work Phone: Rekkho for referral (narrative)* Consultation (Routine) - Pending Review Specialty Diagnoses / Procedures Referred By Contac t Referred To Contact Physical Therapy Diagnoses Shoulder tendonitis, right Yelitza Rizvi MD [address] [facility] [address] [place] [address] Referral ID Status Reason Start Date Expiration Date Visits Requested Visits Authorized [id number] Pending Review Specialty Services Required 12/23/2023 12/22/2024 1 1 [facility] Work Phone: Reason for referral (narrative)No reason for [facility] Reason for visit Narrative* Auth/Cert Specialty Diagnoses / Procedures Referred By Keegan edwards Referred To Contact Diagnoses Decreased right shoulder range of motion Decreased right shoulder range of motion [M25.611] Procedures MO SURGICAL ARTHROSCOPY MICHA W/CORACOACRM LIGM RLS MO SURGICAL ARTHROSCOPY SHOULDER DSTL CLAVICULC Arthroscoplc Shoulder with Subacromial Decompression and CA Ligament Relase Clavicle Resection Yelitza Rizvi MD [address] [facility] [address] [place] [address] Phone: tel: fax: [facility] [place] [address] [place] [phone] fax: Referral ID Status Reason Start Date Expiration Date Visits Re quested Visits Authorized [id number] 1 1 [facility] Work Phone: Reason for visit Narrative* Imaging (Routine) - Authorized Specialty Diagnoses / Procedures Referred By Keegan edwards Referred To Contact Radiology Diagnoses Osteoarthritis of AC (acromioclavicular) joint Procedures XR shoulder right 2+ views Yelitza Rizvi MD [address] [facility] [address] [place] [address] Phone: tel: fax: [address] [place] [address] Phone: tel: Referral ID Status Reason Start Date Expiration Date Visits Requested Visits Authorized [id number] Authorized Perform Procedure 4 03/28/2025 1 1 [facility] Work Phone: Summary Purpose Family History No Family History Records FoundNo Family History Records FoundNo Family History Records FoundNo Family History Records FoundNo Family History Records FoundNo Family History Records FoundNo Family History Records Found Advance Directives Advance Directive Response Recorded Date/ Time NO NO December 08, 2 020 1:06pm Date Activated Date Inactivated Comments 03/21/2024 6:18 AM Question Answer Comments Plan of Care: Code Status Discussion Completed Decision Maker: Patient Date Activated Date Inactivated Comments 03/21/2024 6:18 AM Question Answer Comments Plan of Care: Code Status Discussion Completed Decision Maker: Patient Advance Directive Response Recorded Date/ Time Do you have a Healthcare Power of History Instructor? No October 03, 2024 2:52pm Assessments No Assessments Information Available Reason for Referral Specialty Diagnoses / Procedures Referred By Contac t Referred To Contact Radiology Diagnoses Acute pain of right shoulder Procedures MR arthrogram shoulder right EriDuglasla Marcos, CHALK CUTTER-CRUSHER OPERATOR [address] [facility] [place] [address] Referral ID Status Reason Start Date Expiration Date Visits Requested Visits Authorized [id number] Pending Review Perform Procedure 08/21/2023 08/20/2024 1 1 Specialty Diagnoses / Procedures Referred By Contac t Referred To Contact Radiology Diagnoses Acute pain of right shoulder Procedures XR shoulder right 2+ views Casandra Hwang, CHALK CUTTER-CRUSHER OPERATOR [address] [facility] Physician [place] [phone] Referral ID Status Reason Start Date Expiration Date Visits Requested Visits Authorized [id number] Authorized Perform Procedure 08/21/2023 08/20/2024 1 1 Specialty Diagnoses / Procedures Referred By Contac t Referred To Contact Radiology Diagnoses Acute pain of right shoulder Numbness and tingling of right arm Procedures MR shoulder right wo IV contrast Casandra Hwang, CHALK CUTTER-CRUSHER OPERATOR [address] [facility] [place] [address] Referral ID Status Reason Start Date Expiration Date Visits Requested Visits Authorized [id number] Authorized Perform Procedure 08/24/2023 08/23/2024 1 1 Specialty Diagnoses / Procedures Referred By Contac t Referred To Contact Radiology Diagnoses Shoulder tendonitis, right Procedures XR shoulder right 2+ views Yelitza Rizvi MD [address] [address] [address] [place] [address] Referral ID Status Reason Start Date Expiration Date Visits Requested Visits Authorized [id number] Authorized Perform Procedure 11/23/2023 11/22/2024 1 1 Chief Complaint and Reason for Visit Chief Complaint Admit Date back October 03, 2024 1:20 pm Additional Source Comments (unrecognized sect ion and content) No Status Records FoundNo Status Records FoundNo Status Records FoundNo Status Records FoundNo Status Records FoundNo Status Records FoundNo Status Records Found INFORMATION SOURCE (unrecogn ized section and content) DATE CREATED AUTHOR 04/20/2018 [facility] DATE CREATED AUTHOR AUTHOR'S ORGANIZ ATION 07/30/2020 [facility] DATE CREATED AUTHOR AUTHOR'S ORGANIZ ATION 02/07/2022 [facility] DATE CREATED AUTHOR AUTHOR'S ORGANIZ ATION 09/12/2022 [facility] DATE CREATED AUTHOR AUTHOR'S ORGANIZ ATION 05/08/2024 [facility] DATE CREATED AUTHOR AUTHOR'S ORGANIZ ATION 06/25/2024 [facility] DATE CREATED AUTHOR AUTHOR'S ORGANIZ ATION 07/10/2024 [facility] <item><item><item><item><item> Privacy Markings (unrecogniz ed section and content) Section Author: Yun Page PROHIBITION ON REDISCLOSURE OF CONFIDENTIAL INFORMATION This notice accompanies a disclosure of information concerning a client made to you with the consent of such client. Section Author: Yun Page PROHIBITION ON REDISCLOSURE OF CONFIDENTIAL INFORMATION This notice accompanies a disclosure of information concerning a client made to you with the consent of such client. Section Author: Yun Page PROHIBITION ON REDISCLOSURE OF CONFIDENTIAL INFORMATION This notice accompanies a disclosure of information concerning a client made to you with the consent of such client. Section Author: Yun Page PROHIBITION ON REDISCLOSURE OF CONFIDENTIAL INFORMATION This notice accompanies a disclosure of information concerning a client made to you with the consent of such client. Section Author: Yun Page PROHIBITION ON REDISCLOSURE OF CONFIDENTIAL INFORMATION This notice accompanies a disclosure of information concerning a client made to you with the consent of such client. Reason for Visit (unrecogniz ed section and content) Reason Comments Establish Care Shoulder Pain Right x 3 years Specialty Diagnoses / Procedures Referred By Contac t Referred To Contact Radiology Diagnoses Acute pain of right shoulder Procedures XR shoulder right 2+ views Casandra Hwang B, CHALK CUTTER-CRUSHER OPERATOR [address] [facility] [place] [address] Referral ID Status Reason Start Date Expiration Date Visits Requested Visits Authorized [id number] Authorized Perform Procedure 08/21/2023 08/20/2024 1 1 Specialty Diagnoses /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
== END 2024-10-03 14:57 | disposition home or self-care (01) ==
PROVIDERS: Emergency Provider Surgery; Visit Provider Surgery
DX: M62.830 Muscle spasm of back (principal); M51.26 Other intervertebral disc displacement, lumbar region; G89.29 Other chronic pain
CPT/HCPCS: 96372; 99282

== ENCOUNTER 2024-12-10 19:45 | Emergency (ER) | payer BC, SELFPAY ==
[2024-12-10 19:46] VITALS: BP 157/89; PULSE 57; RESP 18; TEMP 36; O2SAT 100; BMI 27.7
[2024-12-10] MEDS: Ketorolac 30 MG/ML Syringe IM (20:07)
--- NOTE | 2024-12-10 20:09 | ED.VIS.CHEST ---
HPI History of Present Illness Chief Complaint: Chest Other Narrative Narrative: Chief complaint and HPI: 29-year-old male with no significant past medical history presents for evaluation of left-sided chest pain. Patient states a week ago he was playing basketball in which he fell and landed on his left chest/side. Patient states since the injury he has had pain in the left side of his chest. Worse with movement. Denies any fever, chills, abdominal pain, nausea, vomiting, numbness/tingling. Review of systems: See HPI Medications: As listed on the chart Allergies: As listed on the chart PFSH: Per chart Vital signs: As listed on the chart. Reviewed. Physical exam: Gen: A&O x3, NAD Head: Normocephalic, atraumatic Eyes: No sclera icterus, conjunctiva clear ENT: Moist mucous membranes Neck: Trachea midline, No JVD CV: RRR, no murmurs, no peripheral edema, tender to palpation of the anterior and lateral left ribs diffusely-palpation reproduces his pain, no obvious external signs of trauma, no crepitus or erythema, radial pulses +2 bilaterally Resp: Lungs CTA BL, no w/r/c GI: Abd soft, non-distended, non-tender, no r/r/g Musc: Full ROM, no deformity Skin: Warm, dry Neuro: Alert, oriented, grossly intact, sensation intact Psych: Cooperative, appropriate mood and affect PFS PFSH Medical History no medical history Home Medications ?Medication ?Instructions ?Recorded ?Last Taken ?Type NK 12/10/24 Unknown History Allergy/AdvReac Type Severity Reaction Status Date / Time Penicillins (PCN) Allergy PT UNABLE Verified 12/10/24 19:46 TO RESPOND-NEEDS F/U Social History (Updated 02/14/20 @ 13:39 by RENY Van) Smoking Status: Never smoker EXAM Physical Exam Const Vital Signs: 12/10/24 19:46 12/10/24 20:04 Temperature 96.8 F L Temperature Source Temporal Pulse Rate 57 L Respiratory Rate 18 Respiratory Effort Normal Blood Pressure 157/89 H Blood Pressure Mean 111 Pulse Ox 100 Oxygen Delivery Method Room Air MDM MDM MDM Narrative Medical decision making narrative: 29-year-old male with no significant past medical history presents for evaluation of left-sided chest pain. Patient states a week ago he was playing basketball in which he fell and landed on his left chest/side. Patient states since the injury he has had pain in the left side of his chest. Worse with movement. On presentation, patient no acute distress. He has tenderness to palpation of the anterior and lateral left ribs diffusely-palpation reproduces his pain, no obvious external signs of trauma, no crepitus or erythema. Differential diagnosis includes but is not limited to rib contusion, rib fracture, myofascial spasm. Toradol ordered for pain. X-ray of the left ribs ordered. I do not think any laboratory workup is needed at this time. X-ray of the ribs without fracture or intrathoracic abnormality such as cardiomegaly, effusion, pneumothorax, pneumonia. Radiology in agreement. On reevaluation, patient's symptoms have improved with Toradol. Suspect patient's symptoms are secondary to rib contusion versus myofascial spasm. Ibuprofen and Tylenol as needed for pain. Will give muscle relaxers. Follow-up with PCP. He confirmed understand the plan. Patient will discharge home. Impression: 1. Left chest pain 2. Rib contusions versus myofascial spasm Radiography Diagnostic Testing: Clinical Impression(s) from Imaging Studies Ribs w/Chest X-Ray 12/10/24 20:20 IMPRESSION: Negative left ribs. Reading [facility] Discharge Plan Triage Chief Complaint: Chest Other ED Provider: Matt Barnes Dx/Rx/DC Orders Prescriptions: No Action NK Primary Care Provider: Care Physician,No Primary Referrals: Care Physician,No Primary [Primary Care Provider] - Print Language: Montenegrin
--- NOTE | 2024-12-10 20:20 | RAD_ITS ---
PROCEDURE: RIBS UNI MIN 3V W/PA CHEST 12/10/2024 REASON FOR EXAM: PAIN, FALL TECHNIQUE: Procedure Code: RADRIB Modality: DX Procedure: RIBS UNI MIN 3V W/PA CHEST FINDINGS: Single view of the chest and multiple views of the left ribs. The left lung is clear. No rib fracture is identified. RAD/Ribs Uni Min 3V w/PA Chest IMPRESSION: Negative left ribs. Reading [facility]
--- OUTSIDE RECORDS SUMMARY | 2024-12-10 20:30 | XMS RPT_ITS | CCD ---
Author Organization [facility] CliniSyri Care Team Providers Care Neighborhood Coordinator Name Role Phone Wood, Sadiq L Unavailable Unavailable Rafat, Ciara Unavailable Unavailable Wood, Sadiq L Unavailable Unavailable ACSO Unavailable Unavailable Rafat, Ciara Unavailable Unavailable Asbridge, Toya Unavailable Unavailable Asbridge, Toya Unavailable Unavailable Unavailable Primary Care Physician Unavailab delmy OLIVER, DR LEWIS Pruett Attending Unavailable MELODY, DR LEWIS Pruett Admitting Unavailable MELODY, DR LEWIS Pruett Primary Care Unavailable GEMMA LOZADA Primary Care Unavailable GEMMA LOZADA Attending Unavailable GEMMA LOZADA Admitting Unavailable POMERENE, [facility] Admitting Unava ilable POMERENE, [facility] Primary Care Unava ilable JONANE, [facility] Attending Unava ilable WADE GUNTER Admitting [...] Grossman Unavailable Unava ilable Libra Grossman Unavailable [phone] CASANDRA HWANG Attending Unavailable REDD SADIQ L [...] Unavailable ERI, CASANDRA B Primary Care Unavailable [facility] JAVA J2EE LEAD-MANAGER INFORMATION, Casandra B Primary Care Provider Leland JAVA J2EE LEAD-MANAGER INFORMATION, Libra Vargas Unavailable Unava ilable ERI, CASANDRA [...] Physician, No Primary Primary Care Provider Unavailable DougDr. Matt Marques DO Emergency Provider Matt Barnes [facility], No Primary Primary Care Unava ilable Unavailable Unavailable Unavailable Allergies Allergy Classification Reported Allergen(s) Allergy Type Date of Onset Reaction(s) Facility (1 source) Penicillins Allergy to substance 5 PT UNABLE TO RESPOND-NEEDS F/U [facility] (1 source) Penicillins Drug allergy (disorder) 5 [facility] Repository Medications Current Medications Medication Drug Class(es) Dates [...] serious breathing problems. Comment on above: Caution federal law prohibits the transfer of [...] day Quantity: 10 Refills: 0 Ordered: 15-Dec-2022 Jaison Brock Oz Start: 15-Dec-2022 End: 19-Dec-2022 Generic Substitution Allowed [...] day Quantity: 14 Refills: 0 Ordered: 29-Oct-2019 Ralhp Yadav Start: 29-Oct-2019 End: 04-Nov-2019 Status: Other [...] intravenous, Administer over 30 Minutes, Once, On 03/21/24 at 0645, For [...] injection once 60 mg, intramuscular, Once, On Thu09/20/23 at 1845, For 1 dose 5 ml [...] above: BACK PAIN JOB RELATE D Unclassified (2 sources) Low back pain, unspecified; Translations: [Low back [...] Test Name Value Interpretation Reference Range Facility Emergency Department Summary on 10-03-2024 Emergency Department Summary [facility] Medical Records Department [address] [place] [address] Emergency Department Summary 10/03/24 MR#: [id number] Acct: [id number] Name: OLIVIER JEFFRIES Rep #: [id number] : 1995 29 From: Matt Barnes DO PCP: Care Physician,No Primary Status:REG ER Location: ED HPI History of Present [...] on the chart. Reviewed. Physical exam: Gen: A O x3, NAD Head: Normocephalic, atraumatic Eyes: No [...] trauma such as ecchymosis or cellulitis, strength +5/5 in all extremities, DP/PT pulses +2 bilaterally, no saddle paresthesias, normal gait Skin: Warm, dry Neuro: Alert, oriented, grossly intact, sensation intact Psych: Cooperative, appropriate mood and affect [facility] ???Medication ???Instructions ???Recorded ???Last Taken ???Type cyclobenzaprine 5 mg tablet 5 mg PO TID PRN muscle spasm 3 Unknown Rx days #9 tabs Allergy/AdvReac Type [...] up over the last several days. On chart review, I do not have any previous imaging of his back. There has been no trauma or new injury. Nothing to suggest an infectious etiology. He is not an IV drug abuser. No new neurological findings to suggest acute cauda equina syndrome or acute radiculopathy. At this point in time do not feel any emergent imaging such as x-rays or MRI are warranted. [...] - Active Staff] - 3-5 Days Activity Restrictions/Addition al Instructions: Follow-up with orthopedic physician. Call to make an appointment. If you do not have a family doctor, follow-up with the one provided above. You received Toradol here in the emergency department, no ibupro (more content not included)... Normal [facility] POINT OF CARE ULTRASOUND NO CHARGEon 06-23-2024 POINT OF CARE ULTRASOUND NO CHARGE These images are not reportable by radiology and will not be interpreted by Radiologists. Normal [facility] US Abdomenon 06-23-2024 These images are not reportable by radiology and will not be interpreted by Radiologists. IMAGING POINT OF CARE ULTRASOUND NO CHARGEon 05-06-2024 POINT OF CARE ULTRASOUND NO CHARGE These images are not reportable by radiology and will not be interpreted by Radiologists. Normal [facility] US Abdomenon 05-06-2024 These images are not reportable by radiology and will not be interpreted by Radiologists. IMAGING POINT OF CARE ULTRASOUND NO CHARGEon 04-29-2024 POINT OF CARE ULTRASOUND NO CHARGE These images are not reportable by radiology and will not be interpreted by Radiologists. [facility] XR SHOULDER RIGHT 2+ VIEWSon 03-29-2024 XR SHOULDER RIGHT 2+ VIEWS Interpreted By: Juno Maynard, STUDY: XR SHOULDER RIGHT 2+ VIEWS; ; 03/29/2024 8:56 am INDICATION: Signs/Symptoms:POV RIGHT SHOULDER FATUMA AND SAD. ,M19.019 Primary osteoarthritis, unspecified shoulder COMPARISON: None. ACCESSION NUMBER(S): [id number] ORDERING CLINICIAN: YELITZA RIZVI FINDINGS: Two views of the right shoulder. Presumed postsurgical changes status post distal clavicular resection. No acute fracture. No dislocation. The soft tissues are unremarkable. IMPRESSION: Such presumed postsurgical changes status post distal clavicular resection. 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 MACRO: None Signed by: Juno Maynard 04/03/2024 12:36 PM Dictation workstation: [id number] Normal [facility] Basic metabolic 2000 panelon 02-26-2024 Anion gap [Moles/Vol] 9 mmol/L Low 10-20 [facility] Comment on above: Performed By: #### 2 4323-8 #### GEOR[place] GUNN ([id number]) [facility] ([facility]) [address] [place] [address] 31433 Calcium [Mass/Vol] 9.7 mg/dL Normal 8.6-10.3 [facility] Comment on above: Performed By: #### 2 4323-8 #### GE[place] GUNN ([id number]) [facility] ([facility]) [address] [place] [address] 61677 Chloride [Moles/Vol] 104 mmol/L Normal 98-107 [facility] Comment on above: Performed By: #### 2 4323-8 #### [place] GUNN ([id number]) [facility] ([facility]) [address] [place] [address] 56705 CO2 [Moles/Vol] 30 mmol/L Normal 21-32 [facility] Comment on above: Performed By: #### 2 4323-8 #### [place] GUNN ([id number]) [facility] ([facility]) [address] [place] [address] 09850 Creatinine [Mass/Vol] 0.82 mg/dL Normal 0.50-1.30 [facility] Comment on above: Performed By: #### 2 4323-8 #### GE[place] GUNN ([id number]) [facility] ([facility]) [address] [place] [address] 85783 GFR/1.73 sq M.predicted MDRD (S/P/Bld) [Vol rate/Area] mL/min/{1.73_m2} Normal >60 [facility] Comment on above: Result Comment: Calc ulations of estimated GFR are performed using the 2020 CKD-EPI Study Refit equation without the race variable for the IDMS-Traceable creatinine methods. https://jasn.asnjournals.org/content/early/ASN.45767 90789 Performed By: #### 2 4323-8 #### GE[place]IA GUNN ([id number]) [facility] ([facility]) [address] [place] [address] 18842 Glucose [Mass/Vol] 97 mg/dL Normal 74-99 [facility] Comment on above: Performed By: #### 2 4323-8 #### GE[place] GUNN ([id number]) [facility] ([facility]) [address] [place] [address] 78802 Potassium [Moles/Vol] 4.3 mmol/L Normal 3.5-5.3 [facility] Comment on above: Performed By: #### 2 4323-8 #### GE[place] GUNN ([id number]) [facility] ([facility]) [address] [place] [address] 72908 Sodium [Moles/Vol] 139 mmol/L Normal 136-145 [facility] Comment on above: Performed By: #### 2 4323-8 #### GE[place] GUNN ([id number]) [facility] ([facility]) [address] [place] [address] 17284 Urea nitrogen [Mass/Vol] 18 mg/dL Normal 6-23 [facility] Comment on above: Performed By: #### 2 4323-8 #### GE[place] GUNN ([id number]) [facility] ([facility]) [address] [place] [address] 85875 CBC panel Auto (Bld)on 02-25 Erythrocyte distribution width (RBC) [Ratio] 12.3 % Normal 11.5-14.5 [facility] Comment on above: Performed By: #### 5 8410-2 #### GEORGIA GUNN ([id number]) [facility] ([facility]) [address] [place] [address] 61548 Hematocrit (Bld) [Volume fraction] 43.8 % Normal 41.0-52.0 [facility] Comment on above: Performed By: #### 5 8410-2 #### GEORGIA GUNN ([id number]) [facility] ([facility]) [address] [place] [address] 79220 Hemoglobin (Bld) [Mass/Vol] 14.9 g/dL Normal 13.5-17.5 [facility] Comment on above: Performed By: #### 5 8410-2 #### GEORGIA GUNN ([id number]) [facility] ([facility]) [address] [place] [address] 23486 MCH (RBC) [Entitic mass] 30.6 pg Normal 26.0-34.0 [facility] Comment on above: Performed By: #### 5 8410-2 #### GEORGIA GUNN ([id number]) [facility] ([facility]) [address] [place] [address] 03357 MCHC (RBC) [Mass/Vol] 34.0 g/dL Normal 32.0-36.0 [facility] Comment on above: Performed By: #### 5 8410-2 #### GEOR[place]IA GUNN ([id number]) [facility] ([facility]) [address] [place] [address] 95235 MCV (RBC) [Entitic vol] 90 fL Normal 80-100 [facility] Comment on above: Performed By: #### 5 8410-2 #### GEORGIA GUNN ([id number]) [facility] ([facility]) [address] [place] [address] 87672 Nucleated RBC/100 WBC (Bld) [Ratio] 0.0 /100 WBCs Normal 0.0-0.0 [facility] Comment on above: Performed By: #### 5 8410-2 #### GEORGIA GUNN ([id number]) [facility] ([facility]) [address] [place] [address] 91466 Platelets (Bld) [#/Vol] 266 x10*3/uL Normal 150-450 [facility] Comment on above: Performed By: #### 5 8410-2 #### GEOR[place] GUNN ([id number]) [facility] ([facility]) [address] [place] [address] 86995 RBC (Bld) [#/Vol] 4.87 x10*6/uL Normal 4.50-5.90 [facility] Comment on above: Performed By: #### 5 8410-2 #### GEOR[place]IA GUNN ([id number]) [facility] ([facility]) [address] [place] [address] WBC (Bld) [#/Vol] 8.7 x10*3/uL Normal 4.4-11.3 [facility] Comment on above: Performed By: #### 5 8410-2 #### GEORGIA GUNN ([id number]) [facility] ([facility]) [address] [place] [address] POINT OF CARE ULTRASOUND NO CHARGEon 02-26-2024 POINT OF CARE ULTRASOUND NO CHARGE These images are not reportable by radiology and will not be interpreted by Radiologists. [facility] US Abdomenon 02-26-2024 These images are not reportable by radiology and will not be interpreted by Radiologists. IMAGING POINT OF CARE ULTRASOUND NO CHARGEon 02-02-2024 POINT OF CARE ULTRASOUND NO CHARGE These images are not reportable by radiology and will not be interpreted by Radiologists. Normal [facility] US Abdomenon 02-02-2024 These images are not reportable by radiology and will not be interpreted by Radiologists. IMAGING POINT OF CARE ULTRASOUND NO CHARGEon 12-23-2023 POINT OF CARE ULTRASOUND NO CHARGE These images are not reportable by radiology and will not be interpreted by Radiologists. [facility] US Abdomenon 12-23-2023 These images are not reportable by radiology and will not be interpreted by Radiologists. IMAGING XR SHOULDER RIGHT 2+ VIEWSon 12-23-2023 XR SHOULDER RIGHT 2+ VIEWS Interpreted By: Kay Rene, STUDY: Right shoulder, 6 views. INDICATION: Signs/Symptoms:CHRONI C R SHOULDER PAIN. COMPARISON: 08/21/2023. ACCESSION NUMBER(S): [id number] ORDERING CLINICIAN: YELITZA RIZVI FINDINGS: No acute fracture or malalignment. No significant degenerative changes. Soft tissues are unremarkable. IMPRESSION: 1. Unremarkable right shoulder radiographs. MACRO: None. Signed by: Kay Reen 12/24/2023 8:30 PM Dictation workstation: [id number] [facility] POINT OF CARE ULTRASOUND NO CHARGEon 12-22-2023 POINT OF CARE ULTRASOUND NO CHARGE These images are not reportable by radiology and will not be interpreted by Radiologists. Normal [facility] US Abdomenon 12-22-2023 These images are not reportable by radiology and will not be interpreted by Radiologists. IMAGING POINT OF CARE ULTRASOUND NO CHARGEon 11-24-2023 POINT OF CARE ULTRASOUND NO CHARGE These images are not reportable by radiology and will not be interpreted by Radiologists. Normal [facility] US Abdomenon 11-24-2023 These images are not [...] INTO CEMENT BLOCK. COMPARISON: None. ACCESSION NUMBER(S): [id number]; [id number] ORDERING CLINICIAN: KYUNG TOWNSEND TECHNIQUE: Noncontrast CT [...] Renetta Cervantes 09/20/2023 7:26 PM Dictation workstation: [id number] [facility] CT HEAD WO IV CONTRASTon CT HEAD WO IV CONTRAST Interpreted By: Renetta Cervantes, STUDY: CT HEAD WO IV CONTRAST; CT CERVICAL SPINE WO IV CONTRAST; 09/20/2023 7:01 pm INDICATION: Signs/Symptoms:HEAD INJURY/DOVE INTO CEMENT BLOCK; Signs/Symptoms:NECK PAIN AFTER DIVING INTO CEMENT BLOCK. COMPARISON: None. ACCESSION NUMBER(S): [id number]; [id number] ORDERING CLINICIAN: KYUNG TOWNSEND TECHNIQUE: Noncontrast CT [...] Renetta Cervantes 09/20/2023 7:26 PM Dictation workstation: [id number] [facility] No Panel Informationon 09-19 No acute intracrania l hemorrhage or mass effect. No acute fracture or traumatic subluxation of the cervical spine. Mild reversal the cervical curvature which may be positional related to muscle spasm. MACRO: None. Signed by: Renetta Cervantes 09/20/2023 7:26 PM Dictation workstation: [id number] [facility] Interpreted By: Renetta Cervantes, STUDY: CT HEAD WO IV CONTRAST; CT CERVICAL SPINE WO IV CONTRAST; 09/20/2023 7:01 pm INDICATION: Signs/Symptoms:HEAD INJURY/DOVE INTO CEMENT BLOCK; Signs/Symptoms:NECK PAIN AFTER DIVING INTO CEMENT BLOCK. COMPARISON: None. ACCESSION NUMBER(S): [id number]; [id number] ORDERING CLINICIAN: KYUNG TOWNSEND TECHNIQUE: Noncontrast CT [...] are within normal limits. OTHER FINDINGS: None. [facility] Renetta Cervantes S, Praveen O - 09/20/2023 Interpreted By: Renetta Cervantes, STUDY: CT HEAD WO IV CONTRAST; CT CERVICAL SPINE WO IV CONTRAST; 09/20/2023 7:01 pm INDICATION: Signs/Symptoms:HEAD INJURY/DOVE INTO CEMENT BLOCK; Signs/Symptoms:NECK PAIN AFTER DIVING INTO CEMENT BLOCK. COMPARISON: None. ACCESSION NUMBER(S): [id number]; [id number] ORDERING CLINICIAN: KYUNG TOWNSEND TECHNIQUE: Noncontrast CT [...] Renetta Cervantes 09/20/2023 7:26 PM Dictation workstation: [id number] [facility] Work Phone: Radiology Study observation (narrative) [facility] Work Phone: No Panel InformationOrdered By: Renetta Cervantes on 09-20-2023 [facility] Work Phone: L Inj/Asp: R subacromial bur saon 09-11-2023 Libra Ha, JAVA J2EE LEAD-MANAGER INFORMATION 09/11/2023 10:36 AM L Inj/Asp: R subacromial [...] to verify the correct patient, procedure, equipment, behaviour support teacher and site/side marked as required. Patient was prepped and draped in the usual sterile fashion. [facility] Work Phone: [facility] Work Phone: MR SHOULDER RIGHT WO IV CONT Clair 08-27-2023 MR SHOULDER RIGHT WO IV CONTRAST Interpreted By: Juno Maynard, STUDY: MRI of the right shoulder without IV contrast; 08/27/2023 7:51 pm INDICATION: Signs/Symptoms:right shoulder pain with n/t down arm, weakness. COMPARISON: 08/21/2023 ACCESSION NUMBER(S): [id number] ORDERING CLINICIAN: CASANDRA HWANG TECHNIQUE: MR imaging [...] Juno Maynard 08/28/2023 9:03 AM Dictation workstation: [id number] [facility] CBC W Auto Differential pane l (Bld)on 08-21-2023 Basophils (Bld) [#/Vol] 0.03 x10*3/uL Normal 0.00-0.10 [facility] Comment on above: Performed By: #### 5 7021-8 #### GEOR[place] GUNN ([id number]) [facility] ([facility]) [address] [place] [address] 19212 Basophils/100 WBC (Bld) 0.3 % Normal 0.0-2.0 [facility] Comment on above: Performed By: #### 5 7021-8 #### GE[place] GUNN ([id number]) [facility] ([facility]) [address] [place] [address] 03548 Eosinophils (Bld) [#/Vol] 0.24 x10*3/uL Normal 0.00-0.70 [facility] Comment on above: Performed By: #### 5 7021-8 #### GE[place] GUNN ([id number]) [facility] ([facility]) [address] [place] [address] 60167 Eosinophils/100 WBC (Bld) 2.3 % Normal 0.0-6.0 [facility] Comment on above: Performed By: #### 5 7021-8 #### GE[place] GUNN ([id number]) [facility] ([facility]) [address] [place] [address] 94397 Erythrocyte distribution width (RBC) [Ratio] 12.5 % Normal 11.5-14.5 [facility] Comment on above: Performed By: #### 5 7021-8 #### GE[place] GUNN ([id number]) [facility] ([facility]) [address] [place] [address] 38293 Hematocrit (Bld) [Volume fraction] 40.7 % Low 41.0-52.0 [facility] Comment on above: Performed By: #### 5 7021-8 #### GE[place] GUNN ([id number]) [facility] ([facility]) [address] [place] [address] 71252 Hemoglobin (Bld) [Mass/Vol] 13.8 g/dL Normal 13.5-17.5 [facility] Comment on above: Performed By: #### 5 7021-8 #### GE[place] GUNN ([id number]) [facility] ([facility]) [address] [place] [address] 07988 Immature granulocytes (Bld) [#/Vol] 0.03 x10*3/uL Normal 0.00-0.70 [facility] Comment on above: Performed By: #### 5 7021-8 #### GE[place] GUNN ([id number]) [facility] ([facility]) [address] [place] [address] 28726 Immature granulocytes/100 WBC (Bld) 0.3 % Normal 0.0-0.9 [facility] Comment on above: Result Comment: Sayra ture Granulocyte Count (IG) includes promyelocytes, myelocytes and metamyelocytes but does not include bands. Percent differential counts (%) should be interpreted in the context of the absolute cell counts (cells/UL). Performed By: #### 5 7021-8 #### GEOR[place]IA GUNN ([id number]) [facility] ([facility]) [address] [place] [address] 25724 Lymphocytes (Bld) [#/Vol] 4.21 x10*3/uL Normal 1.20-4.80 [facility] Comment on above: Performed By: #### 5 7021-8 #### GEOR[place] GUNN ([id number]) [facility] ([facility]) [address] [place] [address] 22293 Lymphocytes/100 WBC (Bld) 40.5 % Normal 13.0-44.0 [facility] Comment on above: Performed By: #### 5 7021-8 #### GE[place] GUNN ([id number]) [facility] ([facility]) [address] [place] [address] 59420 MCH (RBC) [Entitic mass] 30.8 pg Normal 26.0-34.0 [facility] Comment on above: Performed By: #### 5 7021-8 #### GE[place] GUNN ([id number]) [facility] ([facility]) [address] [place] [address] 18988 MCHC (RBC) [Mass/Vol] 33.9 g/dL Normal 32.0-36.0 [facility] Comment on above: Performed By: #### 5 7021-8 #### GEOR[place]IA GUNN ([id number]) [facility] ([facility]) [address] [place] [address] 89351 MCV (RBC) [Entitic vol] 91 fL Normal 80-100 [facility] Comment on above: Performed By: #### 5 7021-8 #### GEOR[place] GUNN ([id number]) [facility] ([facility]) [address] [place] [address] 35970 Monocytes (Bld) [#/Vol] 0.58 x10*3/uL Normal 0.10-1.00 [facility] Comment on above: Performed By: #### 5 7021-8 #### GEOR[place] GUNN ([id number]) [facility] ([facility]) [address] [place] [address] 20607 Monocytes/100 WBC (Bld) 5.6 % Normal 2.0-10.0 [facility] Comment on above: Performed By: #### 5 7021-8 #### GEOR[place] GUNN ([id number]) [facility] ([facility]) [address] [place] [address] 20237 Neutrophils (Bld) [#/Vol] 5.30 x10*3/uL Normal 1.20-7.70 [facility] Comment on above: Result Comment: Perc ent differential counts (%) should be interpreted in the context of the absolute cell counts (cells/uL). Performed By: #### 5 7021-8 #### GEOR[place] GUNN ([id number]) [facility] ([facility]) [address] [place] [address] 62721 Neutrophils/100 WBC (Bld) 51.0 % Normal 40.0-80.0 [facility] Comment on above: Performed By: #### 5 7021-8 #### GEOR[place] GUNN ([id number]) [facility] ([facility]) [address] [place] [address] 69061 Nucleated RBC/100 WBC (Bld) [Ratio] 0.0 /100 WBCs Normal 0.0-0.0 [facility] Comment on above: Performed By: #### 5 7021-8 #### GEOR[place]IA GUNN ([id number]) [facility] ([facility]) [address] [place] [address] Platelets (Bld) [#/Vol] 279 x10*3/uL Normal 150-450 [facility] Comment on above: Performed By: #### 5 7021-8 #### GEOR[place]IA GUNN ([id number]) [facility] ([facility]) [address] [place] [address] RBC (Bld) [#/Vol] 4.48 x10*6/uL Low 4.50-5.90 [facility] Comment on above: Performed By: #### 5 7021-8 #### GEOR[place] GUNN ([id number]) [facility]) [address] [place] [address] WBC (Bld) [#/Vol] 10.4 x10*3/uL Normal 4.4-11.3 [facility] Comment on above: Performed By: #### 5 7021-8 #### GE[place] GUNN ([id number]) [facility] ([facility]) [address] [place] [address] Comprehensive metabolic 2000 panelon 08-21-2023 Albumin BCP dye [Mass/Vol] 4.6 g/dL Normal 3.4-5.0 [facility] Comment on above: Performed By: #### 2 4323-8 #### GEOR[place]IA GUNN ([id number]) [facility] ([facility]) [address] [place] [address] ALP [Catalytic activity/Vol] 54 U/L Normal 33-120 [facility] Comment on above: Performed By: #### 2 4323-8 #### [place] GUNN ([id number]) [facility] ([facility]) [address] [place] [address] ALT With P-5'-P [Catalytic activity/Vol] 30 U/L Normal 10-52 [facility] Comment on above: Result Comment: Lety ents treated with Sulfasalazine may generate falsely decreased results for ALT. Performed By: #### 2 4322-8 #### [place] GUNN ([id number]) [facility] ([facility]) [address] [place] [address] Anion gap [Moles/Vol] 12 mmol/L Normal 10-20 [facility] Comment on above: Performed By: #### 2 432-8 #### [place] GUNN ([id number]) [facility] ([facility]) [address] [place] [address] AST With P-5'-P [Catalytic activity/Vol] 25 U/L Normal 9-39 [facility] Comment on above: Performed By: #### 2 4322-8 #### [place] GUNN ([id number]) [facility] ([facility]) [address] [place] [address] Bilirubin [Mass/Vol] 0.6 mg/dL Normal 0.0-1.2 [facility] Comment on above: Performed By: #### 2 4322-8 #### [place] GUNN ([id number]) [facility] ([facility]) [address] [place] [address] Calcium [Mass/Vol] 9.2 mg/dL Normal 8.6-10.3 [facility] Comment on above: Performed By: #### 2 4322-8 #### [place] GUNN ([id number]) [facility] ([facility]) [address] [place] [address] Chloride [Moles/Vol] 106 mmol/L Normal 98-107 [facility] Comment on above: Performed By: #### 2 4322-8 #### [place] GUNN ([id number]) [facility] ([facility]) [address] [place] [address] CO2 [Moles/Vol] 25 mmol/L Normal 21-32 [facility] Comment on above: Performed By: #### 2 432-8 #### [place] GUNN ([id number]) [facility] ([facility]) [address] [place] [address] Creatinine [Mass/Vol] 0.92 mg/dL Normal 0.50-1.30 [facility] Comment on above: Performed By: #### 2 4323-8 #### [place] GUNN ([id number]) [facility] ([facility]) [address] [place] [address] GFR/1.73 sq M.predicted MDRD (S/P/Bld) [Vol rate/Area] mL/min/{1.73_m2} Normal >60 [facility] Comment on above: Result Comment: Calc ulations of estimated GFR are performed using the 2020 CKD-EPI Study Refit equation without the race variable for the IDMS-Traceable creatinine methods. https://jasn.asnjournals.org/content/early//ASN.66758 92680 Performed By: #### 2 4323-8 #### [place] GUNN ([id number]) [facility] ([facility]) [address] [place] [address]393 Glucose [Mass/Vol] 106 mg/dL High 74-99 [facility] Comment on above: Performed By: #### 2 4323-8 #### [place] GUNN ([id number]) [facility] ([facility]) [address] [place] [address] 24222 Potassium [Moles/Vol] 4.3 mmol/L Normal 3.5-5.3 [facility] Comment on above: Performed By: #### 2 4323-8 #### [place] GUNN ([id number]) [facility] ([facility]) [address] [place] [address] 10846 Protein [Mass/Vol] 6.9 g/dL Normal 6.4-8.2 [facility] Comment on above: Performed By: #### 2 4323-8 #### [place] GUNN (68604) [facility] ([facility]) [address] [place] [address] 09861 Sodium [Moles/Vol] 139 mmol/L Normal 136-145 [facility] Comment on above: Performed By: #### 2 4323-8 #### [place] GUNN ([id number]) [facility] ([facility]) [address] [place] [address] Urea nitrogen [Mass/Vol] 19 mg/dL Normal 6-23 [facility] Comment on above: Performed By: #### 2 4323-8 #### [place] GUNN ([id number]) [facility] ([facility]) [facility] [place] [address] Lipid 1996 panelon 4 Cholesterol [Mass/Vol] 121 mg/dL Normal 0-199 [facility] Comment on above: Result Comment: Age [...] By: #### 2 4331-1 #### [place] GUNN ([id number]) [facility] ([facility]) [address] [place] [address]15 Cholesterol in HDL [Mass/Vol] 49.0 mg/dL Normal [facility] Comment on above: Result Comment: Age Very Low Low Normal High 0-19 Y < 35 < 40 40-45 ---- 20-24 Y ---- < 40 >45 ---- >24 Y ---- < 40 40-60 >60 Performed By: #### 2 4331-1 #### [place] GUNN (19946) [facility] ([facility]) [facility] [place] [address] Cholesterol in LDL [Mass/Vol] 41 mg/dL Normal <=99 [facility] Comment on above: Result Comment: Near Borderline AGE Desirable Optimal High High Very High 0-19 Y 0 - 109 --- 110-129 >/= 130 ---- 20-24 Y 0 - 119 --- 120-159 >/= 160 ---- >24 Y 0 - 99 100-129 130-159 160-189 >/=190 Performed By: #### 2 4331-1 #### [place] GUNN (65660) [facility] ([facility]) [address] [place] [address]34[address] Cholesterol in VLDL [Mass/Vol] 31 mg/dL Normal 0-40 [facility] Comment on above: Performed By: #### 2 4331-1 #### [place] GUNN (66988) [facility] ([facility]) [address] [place] [address] 27357 CHOLESTEROL/HDL RATIO 2.5 Normal [facility] Comment on above: Result Comment: Ref Values Desirable < 3.4 High Risk > 5.0 Performed By: #### 2 4331-1 #### [place] GUNN ([id number]) [facility] ([facility]) [address] [place] [address] 06065 NON HDL CHOLESTEROL 72 mg/dL Normal 0-149 [facility] Comment on above: Result Comment: Age Desirable Borderline High High Very High 0-19 Y 0 - 119 120 - 144 >/= 145 >/= 160 20-24 Y 0 - 149 150 - 189 >/= 190 ---- >24 Y 30 mg/dL above LDL Cholesterol goal Performed By: #### 2 4331-1 #### [place] GUNN (40324) [facility] ([facility]) [address] [place] [address]37 Triglyceride [Mass/Vol] 153 mg/dL High 0-149 [facility] Comment on above: Result Comment: Age Desirable [...] dosing. Performed By: #### 2 4331-1 #### HO LUIS A (29490) [facility] ([facility]) [address] [place] [address] 99178 TSH WITH REFLEX TO FREE T4 I F ABNORMALon 08-21-2023 TSH Qn 0.64 m[IU]/L Normal 0.44-3.98 [facility] Comment on above: Order Comment: TSH t esting is performed using different testing methodology at [facility] than at other [facility]. Direct result comparisons should only be made within the same method. Performed By: #### T HYDS #### HO LUIS A ([id number]) [facility] ([facility]) [address] [place] [address] 25398 XR SHOULDER RIGHT 2+ VIEWSon 08-21-2023 XR SHOULDER RIGHT 2+ VIEWS Interpreted By: Star Rodriguez, STUDY: XR SHOULDER RIGHT 2+ VIEWS INDICATION: Signs/Symptoms:right shoulder pain. COMPARISON: None ACCESSION NUMBER(S): [id number] ORDERING CLINICIAN: CASANDRA HWANG FINDINGS: No osseous, articular, or soft tissue abnormality. IMPRESSION: Normal radiographs right shoulder. Signed by: Star Rodriguez 08/23/2023 5:42 PM Dictation workstation: [id number] [facility] CT L-SPINE WO CONTRASTon CT L-SPINE WO CONTRAST Patient Name: OLIVIER JEFFRIES STUDY: CT L-SPINE WO CONTRAST; 08/11/2022 8:44 am INDICATION: Low back pain with radiation on right side . COMPARISON: None. ACCESSION NUMBER(S): [id number] ORDERING CLINICIAN: AUSTIN ALMAGUER TECHNIQUE: Unenhanced axial [...] evaluation. Electronically signed by: SUMAN CHAVES MD [facility] Provider Note - ED v3on 05-0 [...] he was discharged home prescriptions for her Bethesda after an OARRS report was obtained. Patient also was prescribed Naprosyn and prednisone. He was referred to a spine surgeon at [facility] and also for Workmen's Comp. follow-up. Patient was provided work restrictions due to his back injury.. This chart was dictated with the use of Rangespan software within the framework of the current electronic medical records software. Attempts were made to edit in real time, given time constraints there is the potential for inaccuracies in my dictation. Austin Almaguer, DO HISTORY OF PRESENTING ILLNESS OLIVIER is a 27 year old Male and was seen by me at 11-Aug-2022 07:50 for a chief complaint of back pain (Patient to EDC reference lower back pain. Patient hurt his lower back 1 1/2 month ago while carrying dry wall at work and it got better. 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 He now has tingling in his legs while sitting/driving and has trouble li (more content not included)... Normal [facility] Provider Note - ED v3on 05-0 Provider Note - ED v3 Provider Note: Chart Review: ED NOTES ED NOTES: Patient presents for evaluation of sinus pressure. Patient reports 1 week of progressively worsening maxillary sinus pain, nasal congestion, and headache. There is reported mild postnasal drip and ear pressure. No fever, cough, or other constitutional signs and symptoms. Symptoms have been refractory to mdge-okv-asvadjm medications. HISTORY OF PRESENTING ILLNESS OLIVIER is [...] SIGNS: T PRBP SpO2O2(LPM) %FiO2 Method 04-Aug-2022 17:03:00-36.10533214/ 86 98 MDM MDM/ED COURSE: Discussed Findings [...] ill patient: no Electronic Signatures: Rafal Bergeron (JAVA J2EE LEAD-MANAGER INFORMATION) (Signed 04-Aug-2022 17:25) Authored: ED Notes, HPI, PMH, ROS, PE, Results/Vital Signs, MDM/ED Course, Clinical Impression, Attestation, Chart Review, Scores Last Updated: 04-Aug-2022 17:25 by Rafal Bergeron (JAVA J2EE LEAD-MANAGER INFORMATION) Normal [facility] GROUP A STREP,PCRon 02-07-20 22 GROUP A STREP,PCR Not detected Normal Not Detected [facility] Comment on above: Result Comment: This test was performed utilizing an FDA-cleared rapid nucleic acid amplification by PCR to qualitatively detect Group A Streptococci from throat swab specimens without the need for culture confirmation of negative results. Performed By: #### G APC1 #### [place] [address] Lab Specimen Source Throat Normal [facility] Comment on above: Performed By: #### G APC1 #### [address] [address] Provider Note - ED v3on 11-0 Provider [...] SIGNS: T PRBP SpO2O2(LPM) %FiO2 Method 06-Feb-2022 12:30:00-36.64462279/ 68 96 MDM MDM/ED COURSE: This note [...] a little worse. Has not tried any ncny-vps-dguifqf medications or home remedies for symptom management. [...] Bowel sounds normoactive. Musculoskeletal: Grossly normal Integumentary: Chama, warm, dry, and intact. No rashes or [...] even if (more content not included)... Normal [facility] EMERGENCY REPORTon 1 EMERGENCY REPORT [facility] EMERGENCY ROOM REPORT NAME ACCOUNT SEX AGE ADMIT DISCHARGE PT MED. RECORD# NUMBER DATE DATE TYPE OLIVIER JEFFRIES [id number] Sam 25 07/15/20 07/15/20 3 [id number] ROOM: ER DATE OF : 1995 DICTATING PHYSICIAN: Gemma Loazda CHIEF COMPLAINT: Wound recheck. HISTORY OF PRESENT [...] of 2 OLIVIER JEFFRIES Emergency Room Report MERVINOLIVIER : 1995 07/15/20 20:54 JOB #: [id number] Transcribed By: margret 07/16/20 12:26 Electronically signed by: DR. GEMMA LOZADA DO 07/27/20 20:17 Page 2 of 2 OLIVIER JEFFRIES Emergency Room Report Normal [facility] EMERGENCY REPORTon 1 EMERGENCY REPORT [facility] EMERGENCY ROOM REPORT NAME ACCOUNT SEX AGE ADMIT DISCHARGE PT MED. RECORD# NUMBER DATE DATE TYPE OLIVIER JEFFRIES [id number] M 25 07/12/20 07/12/20 3 [id number] ROOM: ER DATE OF : 1995 DICTATING [...] abscess cavity. This was irrigated, and a esmif-jn-osidpcqr amount of purulent drainage was obtained. A small amount of iodoform packing was placed in this area to keep it open. A dressing was placed. Page 1 of 2 OLIVIER JEFFRIES Emergency Room Report OLIVIER JEFFRIES : 1995 DIAGNOSIS: Right axilla skin abscess with incision and drainage, probable Methicillin-resistant Staphylococcus aureus. PLAN/DISPOSITION: He was given a prescription for Bactrim DS, small amount of Bethesda for pain. I recommended not working his job today, proceeding tomorrow as needed. Abscess/wound care instructions were given. He is to return if he has no significant improvement or in a couple of days for packing removal. Dictated By: Lewis Oliver MD 07/12/20 07:48 JOB #: [id number] Transcribed By: charlene 07/12/20 15:31 Electronically signed by: ULISSES Oliver M.D. 07/16/20 07:23 Page 2 of 2 OLIVIER JEFFRIES Emergency Room Report Normal [facility] EMERGENCY REPORTon 1 EMERGENCY REPORT [facility] EMERGENCY ROOM REPORT NAME ACCOUNT SEX AGE ADMIT DISCHARGE PT MED. RECORD# NUMBER DATE DATE TYPE OLIVIER JEFFRIES [id number] M 25 06/20/20 06/20/20 3 [id number] ROOM: ER DATE OF : 1995 DICTATING [...] DIAGNOSIS: Alcohol intoxication. Page 1 of 2 [facility] Emergency Room Report OLIVIER JEFFRIES : 1995 Dictated By: Wade Gunter DO 07/02/20 08:09 JOB #: [id number] Transcribed By: brian 07/02/20 12:53 Electronically signed by: E-SIGN: Wade Gunter D.O. 07/10/20 07:25 Page 2 of 2 [facility] Emergency Room Report Normal [facility] URINE COTININE TEST [[facility]]on 03-02-2020 COTININE Negative Normal NORMAL: NEGATIVE [facility] Comment on above: Result Comment: The COT [...] after nicotine use. Performed By: #### 2 81750 #### [facility],[address] [facility] [address] Acetamnphn Lvlon 04-17-2018 Acetaminoph Lvl <10 Normal 10-30 [facility] Comment on above: Performed By: #### 2 697298 ####DOV [address] [place] [address] Auto Diffon 04-17-2018 Basophils Auto #/vol (Bld) 0.0 E3/mcL Normal 0.0-0.2 [facility] Comment on above: Order Comment: Order Added by Discern Expert. Performed By: #### 2 817977 ####DOV [address] [place] [address] Basophils/100 WBC Auto (Bld) 0.5 % Normal 0.0-2.0 [facility] Comment on above: Order Comment: Order Added by Discern Expert. Performed By: #### 2 527928 ####DOV [address]zy[address] [place] [address] Eos Absolute 0.2 E3/mcL Normal 0.0-0.7 [facility] Comment on above: Order Comment: Order Added by Discern Expert. Performed By: #### 2 215661 ####DOV [address] [place] [address] Eosinophils/100 WBC Auto (Bld) 2.2 % Normal 0.0-11.0 [facility] Comment on above: Order Comment: Order Added by Discern Expert. Performed By: #### 2 045093 ####DOV [address]Te[address]Of[address] [place] [address] Lymphocytes Auto #/vol (Bld) 2.6 E3/mcL Normal 1.2-3.4 [facility] Comment on above: Order Comment: Order Added by Discern Expert. Performed By: #### 2 605578 ####DOV [address] [place] [address] Lymphocytes/100 WBC Auto (Bld) 30.0 % Normal 20.0-55.0 [facility] Comment on above: Order Comment: Order Added by Discern Expert. Performed By: #### 2 386824 ####DOV [address]SedDwfa[address] [place] [address] [place] Absolute 0.6 E3/mcL Normal 0.0-0.7 [facility] Comment on above: Order Comment: Order Added by Discern Expert. Performed By: #### 2 062910 ####DOV [address] [place] [address] Monocytes/100 WBC Auto (Bld) 6.4 % Normal 0.0-10.0 [facility] Comment on above: Order Comment: Order Added by Discern Expert. Performed By: #### 2 987989 ####DOV [address] [place] [address] Neutro Absolute 5.4 E3/mcL Normal 1.4-6.5 [facility] Comment on above: Order Comment: Order Added by Discern Expert. Performed By: #### 2 139125 ####DOV [address] [place] [address] Neutro Auto 60.9 % Normal 37.0-75.0 [facility] Comment on above: Order Comment: Order Added by Discern Expert. Performed By: #### 2 559433 ####DOV [address]Alae[address] [place] [address] BMPon 04-17-2018 Anion gap 3 molar conc 12 mmol/L Normal 10-20 [facility] Comment on above: Performed By: #### 2 944385 ####DOV [address]qVscu[address] [place] [address] Calcium mass conc 8.9 mg/dL Normal 8.6-10.3 [facility] Comment on above: Performed By: #### 2 608101 ####DOV [address]fes[address] [place] [address] Chloride molar conc 107 mmol/L Normal 98-107 [facility] Comment on above: Performed By: #### 2 580588 ####DOV [address]tsa[address] [place] [address] CO2 molar conc 27.0 mmol/L Normal 21.0-32.0 [facility] Comment on above: Performed By: #### 2 371942 ####DOVChristy FuentesJauBpvo[address] [place] [address] Creatinine mass conc 0.8 mg/dL Normal 0.5-1.3 [facility] Comment on above: Performed By: #### 2 811318 ####DOV [address]ZllVcnk[address] [place] [address] Glucose mass conc 101 mg/dL High 70-99 [facility] Comment on above: Performed By: #### 2 973377 ####DOV [address] [place] [address] Potassium molar conc 3.6 mmol/L Normal 3.5-5.3 [facility] Comment on above: Performed By: #### 2 423307 ####DOV [address] [place] [address] Sodium molar conc 142 mmol/L Normal 136-145 [facility] Comment on above: Performed By: #### 2 064783 ####DOV [address] [place] [address] Urea nitrogen mass conc 11 mg/dL Normal 6-23 [facility] Comment on above: Performed By: #### 2 770043 ####DOV [address]BjdYfxo[address] [place] [address] Urea nitrogen/Creatinine mass ratio 13.8 ratio Normal 5.4-30.0 [facility] Comment on above: Performed By: #### 2 070064 ####DOV FuentesFxiXufk[address] [place] [address] CBC w/ Auto Diffon 9 Erythrocyte distribution width Auto Ratio (RBC) 13.0 % Normal 11.5-14.5 [facility] Comment on above: Performed By: #### 2 971628 ####DOV [address]EllCxhd[address] [place] [address] Hematocrit Auto Volume Fraction (Bld) 45.6 % Normal 42.0-52.0 [facility] Comment on above: Performed By: #### 2 724982 ####DOV [address]FbnQfqm[address] [place] [address] Hemoglobin mass conc (Bld) 15.3 g/dL Normal 13.5-18.0 [facility] Comment on above: Performed By: #### 2 659675 ####DOV [address]IxuObct[address] [place] [address] MCH Auto Entitic mass (RBC) 30.9 pg Normal 27.0-31.0 [facility] Comment on above: Performed By: #### 2 438957 ####DOV [address]ZmsYyff[address] [place] [address] MCHC Auto mass conc (RBC) 33.5 g/dL Normal 33.0-37.0 [facility] Comment on above: Performed By: #### 2 341424 ####DOV [address] [place] 6085105 MCV Auto Entitic volume (RBC) 92.4 fL Normal 78.0-100.0 [facility] Comment on above: Performed By: #### 2 925398 ####DOV [address] [place] [address] Platelet mean volume Auto Entitic volume (Bld) 8.7 fL Normal 7.4-11.0 [facility] Comment on above: Performed By: #### 2 885846 ####DOV Fu[address]UyfTnep[address] [place] [address] Platelets Auto #/vol (Bld) 278 E3/mcL Normal 130-400 [facility] Comment on above: Performed By: #### 2 870321 ####DOV FuentesAkwYgzl[address] [place] [address] RBC Auto #/vol (Bld) 4.94 E6/mcL Normal 3.90-6.10 [facility] Comment on above: Performed By: #### 2 976605 ####DOV FuentesJhiTrkd[address] [place] [address] WBC Auto #/vol (Bld) 8.8 E3/mcL Normal 3.6-11.0 [facility] Comment on above: Performed By: #### 2 167961 ####DOV Fu[address]HuhPngb[address] [place] [address] Ethanolon 04-17-2018 Ethanol Lvl 244 mg/dL Critically abnormal <=10 [facility] Comment on above: Result Comment: Crit ical Result (s) Called to and read back by: ERWIN PAYNE at: 04/17/2018 03:37:59 by:JASON Performed By: #### 1 7121084 ####DOV [address]wFopw[address] [place] [address] Hep Func Panelon 04-17-2018 Albumin mass conc 4.6 g/dL Normal 3.4-5.0 [facility] Comment on above: Performed By: #### 2 447938 ####DOV [address]chr[address] [place] [address] Albumin/Globulin mass ratio 1.7 {ratio} Normal 1.1-1.9 [facility] Comment on above: Performed By: #### 2 916157 ####DOVChristy RibeiroEoxTiqc[address] [place] [address] Alk Phos 58 Int._Unit/L Normal 33-120 [facility] Comment on above: Performed By: #### 2 618042 ####DOVChristy RibeiroMfoNtto65[address] [place] [address] ALT enzyme act/vol 27 Int._Unit/L Normal 10-52 [facility] Comment on above: Performed By: #### 2 520695 ####DOV NnrAhdj[address] [place] [address] AST enzyme act/vol 28 Int._Unit/L Normal 9-39 [facility] Comment on above: Performed By: #### 2 780908 ####DOVChristy FuentesEwoWrem[address] [place] [address] Bili Direct 0.08 mg/dL Normal 0.00-0.30 [facility] Comment on above: Performed By: #### 2 531925 ####DOVChristy FuentesRawVxza4866 [place] [address] Bili Indirect 0.28 mg/dL Normal [facility] Comment on above: Result Comment: No e stablished ranges available for the indirect bilirubin Performed By: #### 2 630118 ####DOVChristy FuentesQzrEyvm[address]12 [place] [address] Bili Total 0.36 mg/dL Normal 0.00-1.20 [facility] Comment on above: Performed By: #### 2 382500 ####DOVChristy RibeiroDiwGvpu5173 [place] [address] Globulin Calculated mass conc (S) 3.0 g/dL Normal 2.0-4.0 [facility] Comment on above: Performed By: #### 2 731625 ####DOV [address] [place] [address] Protein mass conc 7.3 g/dL Normal 6.4-8.2 [facility] Comment on above: Performed By: #### 2 720121 ####DOV FuentesYxnUnpy[address] [place] [address] Salicylateon 04-17-2018 Salicylate Lvl <1.5 Low 4.0-20.0 [facility] Comment on above: Performed By: #### 2 952952 ####DOV FuentesQpvDahx[address] [place] [address] U Drug Screenon 04-17-2018 U Amph Scr Negative [facility] Comment on above: Performed By: #### 2 238163 ####DOV FuentesDajUilt[address] [place] [address] U Carin Scr Negative [facility] Comment on above: Performed By: #### 2 609517 ####DOV FuentesSggSigm[address] [place] [address] U Benzodia Scr Negative [facility] Comment on above: Performed By: #### 2 705360 ####DOV FuentesYsqLkxy[address] [place] [address] U Cannab Scr Positive [facility] Comment on above: Performed By: #### 2 866165 ####DOV FuentesHieNjxa[address] [place] [address] U Cocaine Scr Negative [facility] Comment on above: Performed By: #### 2 752004 ####DOV FuentesEzvBcyd[address] [place] [address] U Opiate Scr Negative [facility] Comment on above: Performed By: #### 2 122132 ####DOV FuentesGfcOrwi[address] [place] [address] U PCP Scr Negative [facility] Comment on above: Performed By: #### 2 288259 ####DOV FuentesKdhYayd[address] [place] [address] eGFRon 04-17-2018 eGFR AA >60 Normal [facility] Comment on above: Order Comment: Order added by Discern Expert. Performed By: #### 1 7690580 ####DOV [address] [place] [address] GFR/1.73 sq M predicted among non-blacks MDRD vol rate/area (S/P/Bld) mL/min/{1.73_m2} Normal [facility] Comment on above: Order Comment: Order added by Discern Expert. Performed By: #### 1 [id number] ####DOV FuentesUcyZkzl5749 [place] [address] CMPon 11-16-2017 Albumin mass conc 4.6 g/dL Normal 3.2-5.0 [facility] Comment on above: Performed By: #### 2 [id number] ####DOV Ribeiro1025 [place] [address] Albumin/Globulin mass ratio 1.6 {ratio} Normal 1.1-1.9 [facility] Comment on above: Performed By: #### 2 [id number] ####DOV CzmUzak0968 [place] [address] Alk Phos 43 Int._Unit/L Normal 42-121 [facility] Comment on above: Performed By: #### 2 [id number] ####DOV TcuRmwm8420 [place] [address] ALT enzyme act/vol 23 Int._Unit/L Normal 10-40 [facility] Comment on above: Performed By: #### 2 [id number] ####DOV TbkWbhw5124 [place] [address] AST enzyme act/vol 20 Int._Unit/L Normal 10-42 [facility] Comment on above: Performed By: #### 2 [id number] ####DOV BfcEqmb9906 [place] [address] Bili Total 0.8 mg/dL Normal 0.2-1.0 [facility] Comment on above: Performed By: #### 2 [id number] ####DOVChristy RibeiroJqaMlrd3869 [place] [address] Calcium mass conc 9.5 mg/dL Normal 8.4-10.2 [facility] Comment on above: Performed By: #### 2 [id number] ####DOV NkqNbaw8089 [place] [address] Chloride molar conc 103 mmol/L Normal 98-107 [facility] Comment on above: Performed By: #### 2 [id number] ####DOV PdhBqci2648 [place] [address] CO2 molar conc 30.8 mmol/L High 24.0-30.0 [facility] Comment on above: Performed By: #### 2 [id number] ####DOV EggMokx3594 [place] [address] Creatinine mass conc 0.6 mg/dL Normal 0.6-1.3 [facility] Comment on above: Performed By: #### 2 [id number] ####DOV IinMrgn3056 [place] [address] Globulin Calculated mass conc (S) 2.9 g/dL Normal 2.0-4.0 [facility] Comment on above: Performed By: #### 2 [id number] ####DOV ZxyDvys0356 [place] [address] Glucose mass conc 85 mg/dL Normal 70-99 [facility] Comment on above: Performed By: #### 2 [id number] ####DOV QbyYctw5147 [place] [address] Potassium molar conc 3.8 mmol/L Normal 3.5-5.1 [facility] Comment on above: Performed By: #### 2 000156 ####DOV QwuPyiy0404 [place] [address] Protein mass conc 7.5 g/dL Normal 6.4-8.3 [facility] Comment on above: Performed By: #### 2 [id number] ####DOV LhqIwah8231 [place] [address] Sodium molar conc 142 mmol/L Normal 136-145 [facility] Comment on above: Performed By: #### 2 [id number] ####DOVChristy RibeiroPfrPluz5493 [place] [address] Urea nitrogen mass conc 12 mg/dL Normal 7-18 [facility] Comment on above: Performed By: #### 2 [id number] ####DOV TqlUefy1162 [place] [address] Urea nitrogen/Creatinine mass ratio 20.0 ratio Normal 5.4-30.0 [facility] Comment on above: Performed By: #### 2 [id number] ####DOV TfxElox2417 [place] [address] eGFRon 11-16-2017 eGFR AA >60 Normal [facility] Comment on above: Order Comment: Order added by Discern Expert. Performed By: #### 1 [id number] ####DOV AvmKukm9405 [place] [address] GFR/1.73 sq M predicted among non-blacks MDRD vol rate/area (S/P/Bld) mL/min/{1.73_m2} Normal [facility] Comment on above: Order Comment: Order added by Discern Expert. Performed By: #### 1 [id number] ####DOV OawPjhm2433 [place] [address] Vital Signs Date Time Vital Sign Value Performing Clinician Facility 10-03-2024 14:52-0400 Body temperature 98.7 [degF] No Primary Care Physician [facility] 10-03-2024 14:52-0400 Diastolic blood pressure 108 mm[Hg] No Primary Care Physician [facility] 10-03-2024 14:52-0400 Heart rate 64 /min No Primary Care Physician [facility] 10-03-2024 14:52-0400 Respiratory rate 18 /min No Primary Care Physician [facility] 10-03-2024 14:52-0400 SaO2% (BldA) [Mass fraction] 98 % No Primary Care Physician [facility] 10-03-2024 14:52-0400 Systolic blood pressure 132 mm[Hg] No Primary Care Physician [facility] 10-03-2024 13:21-0400 Body height 187.96 cm No Primary Care Physician [facility] 03-21-2024 11:15-0500 Diastolic blood pressure 77 mm[Hg] Yelitza Rizvi MD Work Phone: [facility] 03-21-2024 11:15-0500 Heart rate 60 /min Yelitza Rizvi MD Work Phone: [facility] 03-21-2024 11:15-0500 Respiratory rate 16 /min Yelitza Rizvi MD Work Phone: [facility] 03-21-2024 11:15-0500 SaO2% (BldA) [Mass fraction] 96 % Yelitza Rizvi MD Work Phone: [facility] 03-21-2024 11:15-0500 Systolic blood pressure 144 mm[Hg] Yelitza Rizvi MD Work Phone: [facility] 03-21-2024 10:20-0500 Body temperature 97.2 [degF] Yelitza Rizvi MD Work Phone: [facility] 03-16-2024 09:07-0500 Body height 188 cm Yelitza Rizvi MD Work Phone: [facility] 03-16-2024 09:07-0500 Body mass index (BMI) [Ratio] 25.42 kg/m2 Yelitza Rizvi MD Work Phone: [facility] 03-16-2024 09:07-0500 Body weight 89.81 kg Yelitza Rizvi MD Work Phone: [facility] 02-26-2024 08:11-0500 Body height 182.9 cm Yelitza Rizvi MD Work Phone: [facility] 02-26-2024 08:11-0500 Body mass index (BMI) [Ratio] 27.37 kg/m2 Yelitza Rizvi MD Work Phone: [facility] 02-26-2024 08:11-0500 Body weight 91.54 kg Yelitza Rizvi MD Work Phone: [facility] 02-26-2024 08:11-0500 Diastolic blood pressure 75 mm[Hg] Yelitza Rizvi MD Work Phone: [facility] 02-26-2024 08:11-0500 Heart rate 63 /min Yelitza Rizvi MD Work Phone: [facility] 02-26-2024 08:11-0500 Respiratory rate 18 /min Yelitza Rizvi MD Work Phone: [facility] 02-26-2024 08:11-0500 SaO2% (BldA) [Mass fraction] 98 % Yelitza Rizvi MD Work Phone: [facility] 02-26-2024 08:11-0500 Systolic blood pressure 122 mm[Hg] Yelitza Rizvi MD Work Phone: [facility] 09-20-2023 19:45-0400 Diastolic blood pressure 81 mm[Hg] Kyung Townsend MD Work Phone: [facility] 09-20-2023 19:45-0400 Heart rate 78 /min Kyung Townsend MD Work Phone: [facility] 09-20-2023 19:45-0400 Respiratory rate 16 /min Kyung Townsend MD Work Phone: [facility] 09-20-2023 19:45-0400 SaO2% (BldA) [Mass fraction] 99 % Kyung Townsend MD Work Phone: [facility] 09-20-2023 19:45-0400 Systolic blood pressure 132 mm[Hg] Kyung Townsend MD Work Phone: [facility] 09-20-2023 18:37-0400 Body height 185.4 cm Kyung Townsend MD Work Phone: [facility] 09-20-2023 18:37-0400 Body mass index (BMI) [Ratio] 27.97 kg/m2 Kyung Townsend MD Work Phone: [facility] 09-20-2023 18:37-0400 Body temperature 98.29 [degF] Kyung Townsend MD Work Phone: [facility] 09-20-2023 18:37-0400 Body weight 96.16 kg Kuyng Townsend MD Work Phone: [facility] 08-21-2023 14:49-0400 Body height 188 cm Casandra Hwang JAVA [employer] LEAD-MANAGER INFORMATION Work Phone: [facility] 08-21-2023 14:49-0400 Body mass index (BMI) [Ratio] 28.02 kg/m2 Casandra Quijanoman [employer] LEAD-MANAGER INFORMATION Work Phone: [facility] 08-21-2023 14:49-0400 Body weight 98.97 kg Casandra Hwang [employer] LEAD-MANAGER INFORMATION Work Phone: [facility] 08-21-2023 14:49-0400 Diastolic blood pressure 85 mm[Hg] Casandra Hwang [employer] LEAD-MANAGER INFORMATION Work Phone: [facility] 08-21-2023 14:49-0400 Heart rate 71 /min Casandra Hwang [employer] LEAD-MANAGER INFORMATION Work Phone: [facility] 08-21-2023 14:49-0400 Systolic blood pressure 145 mm[Hg] Casandra Hwang [employer] LEAD-MANAGER INFORMATION Work Phone: [facility] 12-16-2022 07:59-0400 Body height 182.8 cm No Pcp Required [facility] 12-16-2022 07:59-0400 Body temperature 97.52 [degF] No Pcp Required [facility] 12-16-2022 07:59-0400 Body weight 95.5 kg No Pcp Required [facility] 12-16-2022 07:59-0400 Diastolic blood pressure 81 mm[Hg] No Pcp Required [facility] 12-16-2022 07:59-0400 Heart rate 77 /min No Pcp Required [facility] 12-16-2022 07:59-0400 Respiratory rate 18 /min No Pcp Required [facility] 12-16-2022 07:59-0400 SaO2% (BldA) [Mass fraction] 98 % No Pcp Required [facility] 12-16-2022 07:59-0400 Systolic blood pressure 124 mm[Hg] No Pcp Required [facility] 12-16-2022 01:56-0400 Diastolic blood pressure 70 mm[Hg] No Pcp Required [facility] 12-16-2022 01:56-0400 Heart rate 80 /min No Pcp Required [facility] 12-16-2022 01:56-0400 Respiratory rate 16 /min No Pcp Required [facility] 12-16-2022 01:56-0400 SaO2% (BldA) [Mass fraction] 98 % No Pcp Required [facility] 12-16-2022 01:56-0400 Systolic blood pressure 154 mm[Hg] No Pcp Required [facility] 12-15-2022 23:15-0400 Body height 187.9 cm No Pcp Required [facility] 12-15-2022 23:15-0400 Body temperature 97.7 [degF] No Pcp Required [facility] 12-15-2022 23:15-0400 Body weight 95.5 kg No Pcp Required [facility] 08-11-2022 12:40-0400 Diastolic blood pressure 87 mm[Hg] No Pcp Required [facility] 08-11-2022 12:40-0400 Heart rate 69 /min No Pcp Required [facility] 08-11-2022 12:40-0400 Respiratory rate 16 /min No Pcp Required [facility] 08-11-2022 12:40-0400 SaO2% (BldA) [Mass fraction] 98 % No Pcp Required [facility] 08-11-2022 12:40-0400 Systolic blood pressure 127 mm[Hg] No Pcp Required [facility] 08-11-2022 09:49-0400 Body height 187.9 cm No Pcp Required [facility] 08-11-2022 09:49-0400 Body temperature 97.88 [degF] No Pcp Required [facility] 08-11-2022 09:49-0400 Body weight 100 kg No Pcp Required [facility] 02-06-2022 14:30-0400 Body height 185 cm No Pcp Required [facility] 02-06-2022 14:30-0400 Body temperature 98.42 [degF] No Pcp Required [facility] 02-06-2022 14:30-0400 Diastolic blood pressure 68 mm[Hg] No Pcp Required [facility] 02-06-2022 14:30-0400 Heart rate 81 /min No Pcp Required [facility] 02-06-2022 14:30-0400 SaO2% (BldA) [Mass fraction] 96 % No Pcp Required [facility] 02-06-2022 14:30-0400 Systolic blood pressure 124 mm[Hg] No Pcp Required [facility] 12-19-2020 19:23-0400 Body height 154.9 cm No Pcp Required [facility] 12-19-2020 19:23-0400 Body temperature 97.7 [degF] No Pcp Required [facility] 12-19-2020 19:23-0400 Diastolic blood pressure 88 mm[Hg] No Pcp Required [facility] 12-19-2020 19:23-0400 Heart rate 67 /min No Pcp Required [facility] 12-19-2020 19:23-0400 SaO2% (BldA) [Mass fraction] 97 % No Pcp Required [facility] 12-19-2020 19:23-0400 Systolic blood pressure 127 mm[Hg] No Pcp Required [facility] Encounters Encounter Date Encounter Type Care Provider Facility Start: 10-03-2024 End: 10-03-2024 Emergency department patient visit No Primary Care Physician -Emergency Department Work Phone: Start: 06-23-2024 End: 06-23-2024 Subsequent hospital visit by physician [facility] Comment on above: Arrived Start: 06-23-2024 End: 06-23-2024 ambulatory YELITZA RIZVI [facility] Start: 05-06-2024 End: 05-06-2024 Postop follow up visit related to original px Yelitza Rizvi MD Work Phone: [facility] Comment on above: Acute pain of right shoulder Start: 05-06-2024 End: 05-06-2024 Subsequent hospital visit by physician [facility] Comment on above: Arrived Start: 05-06-2024 End: 05-06-2024 ambulatory [facility] Start: 05-05-2024 End: 05-05-2024 ambulatory [facility] Start: 05-03-2024 End: 05-03-2024 ambulatory [facility] Start: 04-29-2024 End: 04-29-2024 ambulatory [facility] Start: 04-28-2024 End: 04-28-2024 ambulatory [facility] Start: 04-26-2024 End: 04-26-2024 ambulatory [facility] Start: 04-21-2024 End: 04-21-2024 ambulatory [facility] Start: 04-20-2024 End: 04-20-2024 ambulatory RADHA SAHU [facility] Start: 04-14-2024 End: 04-14-2024 ambulatory [facility] Start: 04-11-2024 End: 04-11-2024 ambulatory [facility] Start: 03-29-2024 End: 03-29-2024 Subsequent hospital visit by physician Uri [email or web address] [facility] Comment on above: Osteoarthritis of AC (acromioclavicular) joint Start: 03-29-2024 End: 03-29-2024 ambulatory [facility] Start: 03-29-2024 End: 03-29-2024 Postop follow up visit related to original px Yelitza Rizvi MD Work Phone: [facility] Comment on above: Osteoarthritis of AC (acromioclavicular) joint Start: 03-21-2024 End: 03-21-2024 Subsequent hospital visit by physician Yelitza Rizvi MD Work Phone: [facility] [place] Comment on above: Trigger middle finge r of left hand (Primary Dx); Decreased right shoulder range of motion Start: 03-16-2024 ambulatory [facility] Start: 02-26-2024 End: 02-26-2024 Office outpatient visit 40 minutes Yelitza Rizvi MD Work Phone: [facility] Comment on above: Acute pain of right shoulder Start: 02-26-2024 End: 02-26-2024 Subsequent hospital visit by physician [facility] Comment on above: Arrived Start: 02-26-2024 End: 02-26-2024 [facility] Start: 02-02-2024 End: 02-02-2024 Office outpatient visit 25 minutes Yelitza Rizvi MD Work Phone: [facility] Comment on above: Acute pain of right shoulder; Shoulder tendonitis, right Start: 02-02-2024 End: 02-02-2024 [facility] Start: 02-02-2024 End: 02-02-2024 Subsequent hospital visit by physician [facility] Comment on above: Arrived Start: 02-02-2024 End: 02-02-2024 [facility] Start: 01-18-2024 End: 01-18-2024 [facility] Start: 12-23-2023 End: 12-23-2023 Subsequent hospital visit by physician [facility] Comment on above: Arrived Shoulder tendonitis, right Start: 12-23-2023 End: 12-23-2023 Office outpatient visit 25 minutes Yelitza Rizvi MD Work Phone: [facility] Comment on above: Acute pain of right shoulder; Shoulder tendonitis, right Start: 12-23-2023 End: 12-23-2023 ambulatory [facility] Start: 12-22-2023 End: 12-22-2023 Subsequent hospital visit by physician [facility] Comment on above: Arrived Start: 12-22-2023 End: 12-22-2023 ambulatory [facility] Start: 11-24-2023 End: 11-24-2023 Subsequent hospital visit by physician [facility] Comment on above: Arrived Start: 11-24-2023 End: 11-24-2023 ambulatory YELITZA RIZVI [facility] Start: 10-07-2023 End: 10-07-2023 Office outpatient visit 25 minutes Libra Sam Leland JAVA [employer] LEAD-MANAGER INFORMATION Work Phone: [facility] Comment on above: Shoulder tendonitis, right (Primary Dx); Osteoarthritis of AC (acromioclavicular) joint Start: 10-07-2023 End: 10-07-2023 ambulatory [facility] Start: 09-20-2023 End: 09-20-2023 Emergency department patient visit Kyung Townsend MD Work Phone: [facility] Comment on above: Abrasion of face, in itial encounter (Primary Dx); Abrasion of scalp, initial encounter; Contusion of scalp, initial encounter; Contusion of face, initial encounter; Strain of neck muscle, initial encounter; Closed head injury, initial encounter Start: 09-07-2023 End: 09-07-2023 Office outpatient new 45 minutes Libra M Leland [employer] LEAD-MANAGER INFORMATION Work Phone: [facility] Comment on above: Shoulder tendonitis, right (Primary Dx); Acute pain of right shoulder; Osteoarthritis of AC (acromioclavicular) joint Start: 09-07-2023 End: 09-07-2023 ambulatory [facility] Start: 08-27-2023 End: 08-27-2023 Subsequent hospital visit by physician Uri Mri [facility] Comment on above: Acute pain of right shoulder; Numbness and tingling of right arm Start: 08-27-2023 End: 08-27-2023 ambulatory CASANDRA HWANG [facility] Start: 08-21-2023 End: 08-21-2023 Subsequent hospital visit by physician Uri [facility] [address] [facility] Comment on above: Acute pain of right shoulder; Numbness and tingling in right hand Start: 08-21-2023 End: 08-21-2023 Office outpatient new 45 minutes Casandra Hwang JAVA [employer] LEAD-MANAGER INFORMATION Work Phone: [facility] Comment on above: Acute pain of right shoulder (Primary Dx); Screening for cardiovascular condition; Screening for diabetes mellitus; Numbness and tingling of right arm Start: 08-21-2023 End: 08-21-2023 ambulatory [facility] Start: 12-16-2022 End: 12-16-2022 Emergency department patient visit Brock Blackwood [facility] Emergency 04 Start: 12-15-2022 End: 12-16-2022 Emergency department patient visit Brock Blackwood [facility] Emergency 02 Start: 08-11-2022 End: 08-11-2022 Emergency department patient visit Austin Almaguer [facility] Emergency 13 Start: 08-04-2022 End: 08-04-2022 Emergency department patient visit Rafal Bergeron Facility:[id number] Start: 02-06-2022 End: 02-06-2022 Emergency department patient visit Shima Bishop [facility] Start: 12-19-2020 End: 12-19-2020 Emergency department patient visit Kat Rosas [facility] Start: 07-15-2020 End: 07-15-2020 Emergency department patient visit GEMMA LOZADA [facility] Start: 07-12-2020 End: 07-12-2020 Emergency department patient visit DR LEWIS OLIVER [facility] Start: 06-20-2020 End: 06-20-2020 Emergency department patient visit WADE GUNTER [facility] Start: 03-02-2020 End: 03-02-2020 ambulatory [facility] Start: 12-09-2019 End: 12-09-2019 Patient encounter procedure [facility] Start: 04-17-2018 End: 04-17-2018 Emergency department patient visit Ciara Douglass Facility:[facility] Start: 11-16-2017 End: 11-17-2017 Patient encounter procedure Sadiq Elizondo Facility:[facility] Procedures Date Procedure Procedure Detail Performing Clinician Start: 06-23-2024 US Abdomen Yelitza thomas MD Work Phone: Start: 05-06-2024 US Abdomen [...] Arthrocentesis aspir &/inj major jt/bursa w/us Libra Ha [employer] LEAD-MANAGER INFORMATION Work Phone: Start: 08-21-2023 XR SHOULDER RIGHT [...] 2) Zoster Vacc otilio (1 of 2) [facility] Start: 12-15-2032 DTaP/Tdap/Td Vaccine s (8 - Td or Tdap) DTaP/Tdap/Td Vaccines (8 - Td or Tdap) [facility] Start: 08-20-2028 Lipid panel Lipid Panel [facility] Start: 10-03-2024 [facility] Start: 06-10-2024 End: 06-10-2024 Patient encounter procedure 06/10/2024 9:45 AM EST Office Visit [facility] [address] [place] [address] Yelitza Rizvi MD [address] [place] [id number] [facility] Start: 05-10-2024 End: 05-10-2024 ambulatory 05/10/2024 11:30 AM EST Treatment [facility] [address] [place] [address] Gage Justice, PT [address] [facility] [place] [address] [facility] Start: 04-29-2024 End: 04-29-2024 Patient encounter procedure 04/29/2024 8:00 AM EST Office Visit [facility] [address] [place] [address] Yelitza Rizvi MD [address] [place] [address] [facility] Start: 03-29-2024 End: 03-29-2024 Patient encounter procedure 03/29/2024 8:45 AM EST Office Visit [facility] [address] [place] [phone] Yelitza Rizvi MD [address] [place] [address] [facility] Start: 03-28-2024 End: 03-28-2025 XR Shoulder - right 2 Views XR shoulder right 2+ views Imaging Routine Osteoarthritis of AC (acromioclavicular) joint Expected: 03/28/2024, Expires: 03/28/2025 [facility] Service Area Work Phone: Comment on above: Expected: 03/28/2024 , Expires: 03/28/2025 Start: 03-21-2024 End: 03-21-2024 Admission to same day surgery center 03/21/2024 7:30 AM EST - 03/21/2024 9:[address] [facility] [place] [address] [place], [place] [phone] Yelitza iRzvi MD [address] [place] [address] Arthroscoplc Shoulder with Subacromial Decompression and CA Ligament Relase [03527 (CPT )] [facility] [place] Comment on above: Arthroscoplc Shoulde r with Subacromial Decompression and CA Ligament Relase [26824 (CPT )] Start: 03-21-2024 End: 03-21-2024 Arthroscopy shoulder distal claviculectomy [facility] Start: 03-21-2024 End: 03-21-2024 Arthroscopy shoulder w/coracoacrm ligmnt release [facility] Start: 03-21-2024 Subsequent hospital visit by physician 03/21/2024 6:00 AM EST Hospital Encounter [facility] [place] [address] [place] [phone] Yelitza Rizvi MD [address] [place] [address] [facility] [place] Start: 02-26-2024 End: 02-26-2024 Patient encounter procedure 02/26/2024 8:00 AM EST Office Visit [facility] [address] [place] [phone] Yelitza Rizvi MD [address] [place] [address] [facility] Start: 01-29-2024 End: 01-29-2024 Patient encounter procedure 01/29/2024 9:15 AM EDT Office Visit [facility] [address] [place] [address] Yelitza Rizvi MD [address] [place] [address] [facility] Start: 12-23-2023 Subsequent hospital visit by physician 12/23/2023 11:49 AM EDT Hospital Encounter [facility] [address] [place] [phone] Shoulder tendonitis, right [facility] Comment on above: Shoulder tendonitis, right Start: 12-06-2023 COVID-19 Vaccine ( season) COVID-19 Vaccine ( season) [facility] Start: 12-06-2023 COVID-19 Vaccine ( season) COVID-19 Vaccine () [facility] Start: 12-06-2023 Influenza vaccination [facility] [facility] Start: 11-24-2023 End: 11-24-2023 Patient encounter procedure 11/24/2023 4:15 PM EDT Office Visit [facility] [address] [place] [address] Yelitza Rizvi MD [address] [place], [facility] Start: 10-07-2023 End: 10-07-2023 Patient encounter procedure 10/07/2023 9:15 AM EDT Office Visit [facility] [address] [place] [phone] Libra Ha, JAVA J2EE LEAD-MANAGER INFORMATION [address] [facility] [address] [place] [address] [facility] Start: 09-25-2023 End: 09-25-2023 Patient encounter procedure 09/25/2023 3:50 PM EDT Office Visit [facility] [address] [place] [phone] Casandra Hwang, JAVA J2EE LEAD-MANAGER INFORMATION [address] [facility] [place] [address] [facility] Start: 08-21-2023 End: 08-21-2023 ambulatory 08/21/2023 3:40 PM EDT Lab [facility] [address] [place] [phone] Screening for cardiovascular condition; Screening for diabetes mellitus [facility] Comment on above: Screening for cardio vascular condition; Screening for diabetes mellitus Start: 08-21-2023 Subsequent hospital visit by physician 08/21/2023 3:34 PM EDT Hospital Encounter [address] [phone] Acute pain of right shoulder; Numbness and tingling in right hand [facility] Comment on above: Acute pain of right shoulder; Numbness and tingling in right hand Start: 08-21-2023 End: 08-20-2024 CBC W Auto Differential panel - Blood [facility] Work Phone: Comment on above: Expected: 08/21/2023 (Approximate), Expires: 08/20/2024 Start: 08-21-2023 End: 08-20-2024 Comprehensive metabolic 2000 panel - Serum or Plasma [facility] Work Phone: Comment on above: Expected: 08/21/2023 (Approximate), Expires: 08/20/2024 Start: 08-21-2023 End: 08-20-2024 Lipid 1996 panel - Serum or Plasma [facility] Work Phone: Comment on above: Expected: 08/21/2023 (Approximate), Expires: 08/20/2024 Start: 08-21-2023 End: 08-20-2024 MR Shoulder - right Arthrogram MR arthrogram shoulder right Imaging Routine Acute pain of right shoulder Expected: 08/21/2023, Expires: 08/20/2024 [facility] Work Phone: Comment on above: Expected: 08/21/2023 , Expires: 08/20/2024 Start: 08-21-2023 End: 08-20-2024 TSH with reflex to Free T4 if abnormal [facility] Work Phone: Comment on above: Expected: [...] 15-Dec-2022 End: 15-Dec-2023 Ordered: 15-Dec-[address] [facility] Start: 12-05-2022 COVID-19 Vaccine (2022- season) COVID-19 Vaccine ( season) [facility] Start: 2016 Pneumococcal Vaccine : Pediatrics and At-Risk Adult Patients (1 of 2 - PCV) Pneumococcal Vaccine: Pediatrics and At-Risk Adult Patients (1 of 2 - PCV) [facility] Start: 2012 HPV Vaccines (1 - Ma le 3-dose series) HPV Vaccines (1 - Male 3-dose series) [facility] Start: 2003 Pneumococcal Vaccine : Pediatrics (0 to 5 Years) and At-Risk Patients (6 to 64 Years) (1 of 2 - PCV) Pneumococcal Vaccine: Pediatrics (0 to 5 Years) and At-Risk Patients (6 to 64 Years) (1 of 2 - PCV) [facility] Start: 1997 HIV screening HIV Screening [facility] Start: 1997 Lipid panel Lipid Panel [facility] Start: 1997 Yearly Adult Physical Yearly Adult P hysical [facility] End: 03-21-2024 Blood type and Indirect [...] Education ED Back Spasm, No Traum a [facility] Work Phone: End: 12-23-2023 XR Shoulder - right 2 Views [facility] Service Area Work Phone: Comment on above: Once for 1 Occurrenc es starting 12/23/2023 until 12/23/2023 End: 03-29-2024 XR Shoulder - right 2 Views [facility] Work Phone: Comment on above: Once for 1 Occurrenc es starting 03/29/2024 until 03/29/2024 Immunizations Immunization Date Immunization Notes Care Provider Raysa luna 12-15-2022 tetanus toxoid, redu carmen diphtheria toxoid, and acellular pertussis vaccine, adsorbed No Pcp Required [facility] Payers Date Payer Category Payer Self-pay 2022 [employer] Managed Care [facility] [id number] 2022 Unknown [id number] 2017 Unknown 1997 Unknown [id number] 2.16.840.1.878905.3.579.2. 717 1997 Unknown [id number] 2.16.840.1.149728.3.579.2. 717 1997 Unknown [id number] 2.16.840.1.774184.3.579.2. 1069 1997 Unknown [id number] 2.16.840.1.841885.3.579.2. 1069 1997 Unknown [id number] 2.16.840.1.400126.3.579.2. 1068 1997 Unknown [id number] 2.16.840.1.499136.3.579.2. 1243 1997 Unknown [id number] 2.16.840.1.398607.3.579.2. 1243 1997 Unknown [id number] 2.16.840.1.394211.3.579.2. 1243 1997 Unknown [id number] 2.16.840.1.214764.3.579.2. 1243 1997 Unknown [id number] 2.16.840.1.534854.3.579.2. 4 1997 Unknown [id number] 2.16.840.1.784509.3.579.2. 4 1997 Unknown [id number] 2.16.840.1.927097.3.579.2. 124 1997 Unknown [id number] 2.16.840.1.686922.3.579.2. 1243 1997 Unknown [id number] 2.16.840.1.241095.3.579.2. 1244 1997 Unknown [id number] 2.16.840.1.095882.3.579.2. 1244 1997 Unknown [id number] 2.16.840.1.668639.3.579.2. 1244 1997 Unknown [id number] 2.16.840.1.727047.3.579.2. 1244 1997 Unknown [id number] 2.16.840.1.109221.3.579.2. 1244 1997 Unknown [id number] 2.16.840.1.056815.3.579.2. 1244 1997 Unknown [id number] 2.16.840.1.277384.3.579.2. 1244 1997 Unknown [id number] 2.16.840.1.176475.3.579.2. 1244 1997 Unknown [id number] 2.16.840.1.338097.3.579.2. 1244 1997 Unknown [id number] 2.16.840.1.535463.3.579.2. 1244 1997 Unknown [id number] 2.16.840.1.447882.3.579.2. 1242 1997 Unknown [id number] 2.16.840.1.756091.3.579.2. 1242 1997 Unknown [id number] 2.16.840.1.091109.3.579.2. 1242 1997 Unknown [id number] 2.16.840.1.417522.3.579.2. 1242 1997 Unknown [id number] 2.16.840.1.260155.3.579.2. 1242 1997 Unknown [id number] 2.16.840.1.256071.3.579.2. 1242 1997 Unknown [id number] 2.16.840.1.371859.3.579.2. 1242 1997 Unknown [id number] 2.16.840.1.163265.3.579.2. 1243 1997 Unknown [id number] 2.16.840.1.445873.3.579.2. 1243 1997 Unknown [id number] 2.16.840.1.743072.3.579.2. 1243 1997 Unknown [id number] 2.16.840.1.980327.3.579.2. 1243 1997 Unknown [id number] 2.16.840.1.612710.3.579.2. 1243 1997 Unknown [id number] 2.16.840.1.828085.3.579.2. 1243 1997 Unknown [id number] 2.16.840.1.232335.3.579.2. 1243 1997 Unknown [id number] 2.16.840.1.752601.3.579.2. 1243 Self-pay [id number] Self-pay [id number] Unknown [id number] Unknown [id number] Unknown [id number] Unknown [id number] 2.16.840.1.991023.3.579.2. 462 Social History Date Type Detail Facility [facility] Work Phone: Start: 1997 Sex Assigned At Male [facility] Tobacco smoking consumption unknown [facility] Start: 08-21-2023 [facility] daily [facility] Work Phone: History of tobacco use Cigarette Smoker [facility] Work Phone: Start: 08-21-2023 Tobacco use and exposure Smokeless tobacco non-user [facility] Work Phone: Start: 08-21-2023 End: 05-06-2024 Alcoholic beverage intake Lifetime non-drinker (finding) [facility] Work Phone: Start: 1997 Sex assigned at Not on file [facility] Work Phone: Start: 08-21-2023 End: 05-06-2024 Gender identity Not on file [facility] Work Phone: Start: 08-11-2023 End: 05-05-2024 Exposure to SARS-CoV-2 (event) Not sure [facility] Start: 08-21-2023 End: 05-06-2024 History of Social function [facility] Work Phone: Start: 08-17-2023 End: 08-27-2023 Exposure to SARS-CoV-2 (event) Unable to assess [facility] Start: 10-03-2024 Tobacco smoking stat [facility] Never smoked tobacco (finding) [facility] Goals Date Patient Goal Desired Activity /State Clinical Notes 08-21-2023 to 10-03-2024 Note Date & Type Note Facility 10-03-2024 Discharge summary [facility] 10-03-2024 Discharge summary Note Date/Time October 03, 2024 2:55pm [facility] Medical Records Department [address] [place] [address] Emergency Department Summary 10/03/24 MR#: [id number] Acct: [id number] Name: OLIVIER JEFFRIES Rep #:[id number] : [...] intact Psych: Cooperative, appropriate mood and affect PFS PFS Home Medications ?Medication ?Instructions ?Recorded ?Last Taken ?Type cyclobenzaprine 5 mg tablet 5 mg PO TID PRN muscle spa sm 3 10/03/24 Unknown Rx days #9 tabs Allergy/AdvReac Type Severity Reaction Status Date / Time Penicillins (PCN) Allergy PT UNABLE Verified 10/03/24 13:20 TO RESPOND-NEEDS F/U Social History (Updated 02/14/20 @ 13:39 by RENY Van) Smoking Status: Never smoker EXAM Physical Exam [...] taking muscle relaxers. Print Language: Citizen [place] Disposition Disposition: Home, Self Care What to do if you have Problems For any increased pain, shortness of breath, bleeding, nausea or vomiting, chestpain, or any unexpected problems, contact your Primary Care Provider. Call [facility] ([phone]) or report to the closest Emergency Room. Call 911 if necessary. 10/03/24 7194 <Electronically signed by Matt Barnes DO> Cosigner Signature (if applicable): CC: No Primary Care Physician ~ Signed [facility] Work Phone: 1([phone]) 316-521301-31-2025 Evaluation + Plan note* Assessment & Plan [...] directed Follow-up in 6 weeks for reevaluation [facility] Work Phone: [phone] 644-233401-31-2025 Miscellaneous Notes* Assessment & Plan Note - [...] 6 weeks for reevaluation documented [facility] Work Phone: [phone]) 350-294101-31-2025 History of Present illness Narrative* eYlitza Rizvi MD - 05/06/2024 8:45 AM EST [...] ibuprofen 800 mg tablet [facility] Work Phone: [phone] 284-992212-24-2024 Evaluation + Plan note* Assessment & Plan [...] start phase 1 Codman's advancing as tolerated. [facility] Work Phone: [phone] 653-478412-24-2024 Miscellaneous Notes* Assessment & Plan Note - [...] Codman's advancing as tolerated. documented in this [facility]Ohio[facility] Work Phone: 1(635) 905-983012-24-2024 History of Present illness Narrative* Yelitza Rizvi [...] ibuprofen 800 mg tablet [facility] Work Phone: [phone] 367-760612-16-2024 Attending History and physical note* Yelitza Rizvi [...] Placed This Encounter Point of Care Ultrasound [facility] Work Phone: [phone]) 487-362012-16-2024 History and physical note* Yelitza Rizvi MD [...] Point of Care Ultrasound documented in this [facility]Ohio[facility] Work Phone: [phone] 272-782612-11-2024 Note* Preprocedure Instructions - Tara Lilly RN [...] electrolyte drinks (Gatorade). Additional Instructions: Will need bulk tank driver home, will receive call day before surgery with arrival time [facility]12-11-2024 Miscellaneous Notes* Preprocedure Instructions - Tara [...] electrolyte drinks (Gatorade). Additional Instructions: Will need bulk tank driver home, will receive call day before surgery with arrival time documented in [facility]Ohio[facility] Work Phone: [phone]) 817-681711-22-2024 Evaluation + Plan note* Assessment & Plan [...] was performed today. Surgical planning was performed. [facility] Work Phone: [phone]) 795-774611-22-2024 Miscellaneous Notes* Assessment & Plan Note - [...] Surgical planning was performed. documented in this encounterOhio[facility] Work Phone: [phone] 823-190311-22-2024 History of Present illness Narrative* Yelitza Rizvi [...] Point of Care Ultrasound documented in this encounterOhio[facility] Work Phone: [phone]) 826-514610-29-2024 Evaluation + Plan note* Assessment & Plan [...] preoperative planning conference and history and physical. [facility] Work Phone: [phone]) 264-279310-29-2024 Miscellaneous Notes* Assessment & Plan Note - [...] and history and physical. documented in this encounterOhio[facility] Work Phone: [phone]) 291-775110-29-2024 History of Present illness Narrative* Yelitza Rizvi [...] The biceps groove was tender to palpation. Ingham's test was positive. He gets forward elevation [...] Point of Care Ultrasound documented in this encounterOhio[facility] Work Phone: [phone]) 250-923409-18-2024 Evaluation + Plan note* Assessment & Plan Note - Yelitza Rizvi MD - 12/23/2023 12:25 PM EDTAssociated Problem(s): Shoulder tendonitis, right Assessment: MRI findings of possible osteolysis of the clavicle but clinically he is relatively asymptomatic. He was also noted to have some degenerative change but his AC joint is relatively asymptomatic. Possible superior labral tear he does have a positive Ingham's test Subacromial bursitis with supraspinatus and infraspinatus [...] with meals Voltaren gel use as directed [facility] Work Phone: [phone] 589-548709-18-2024 Miscellaneous Notes* Assessment & Plan Note - Yelitza Rizvi MD - 12/23/2023 12:25 PM EDTAssociated Problem(s): Shoulder tendonitis, right Assessment: MRI findings of possible osteolysis of the clavicle but clinically he is relatively asymptomatic. He was also noted to have some degenerative change but his AC joint is relatively asymptomatic. 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
[2024-12-10 21:52] VITALS: BP 150/80; PULSE 83; RESP 16; TEMP 36; O2SAT 100
== END 2024-12-10 21:53 | disposition home or self-care (01) ==
PROVIDERS: Emergency Provider Surgery; Visit Provider Surgery
DX: R07.89 Other chest pain (principal); S20.212A Contusion of left front wall of thorax, initial encounter; W19.XXXA Unspecified fall, initial encounter; Y93.67 Activity, basketball
CPT/HCPCS: 71101; 96372; 99282

== ENCOUNTER 2025-01-07 04:21 | Emergency (ER) | payer BC, SELFPAY ==
[2025-01-07 04:25] VITALS: BP 156/97; PULSE 72; RESP 16; TEMP 36.8; O2SAT 98; BMI 26.4
[2025-01-07 04:27] VITALS: BP 156/96; PULSE 78; RESP 16; TEMP 37.1; O2SAT 97
--- OUTSIDE RECORDS SUMMARY | 2025-01-07 04:44 | XMS RPT_ITS | CCD ---
Author Organization [facility] Care Team Providers Care Swing Tender Name Role Phone Wood, Sadiq L Unavailable [...] Attending Unavailable GEMMA LOZADA Admitting Unavailable POMERENE, [facility] Admitting Unava ilable POMERENE, [facility] Primary Care Unava ilable JONANE, [facility] Attending Unava ilable WADE GUNTER Admitting Unavailable WADE GUNTER Primary Care Unavailable WADE GUNTER Attending Unavailable Required, No Pcp Unavailable Unavailable Kat Rosas Unavailable Unavailable Shima Alas Unavailable Unavailable Austin Almaguer Unavailable Unavailable Shima Alas Attending Unavailable Rafal Bergeron Attending Unavailable Dr. Austin Almaguer Attending UnavailBrock Oliva Unavailable Unavailable Duglas Dyerla B Primary Care Provider Libra Grossman Unavailable Unava ilable Libra Grossman Unavailable [phone] CASANDRA HWANG Attending Unavailable REDD SADIQ L Primary Care Unavailable LIBRA HA Attending Unavailable CASANDRA HWANG Referring Unavailable DADA, CASANDRA B Primary Care Unavailable LIBRA HA Attending Unavailable CASANDRA HWANG B Primary Care Unavailable YELITZA RIZVI Attending Unavailable CASANDRA HWANG B Primary Care Unavailable YELITZA RIZVI Attending Unavailable CASANDRA HWANG B Primary Care Unavailable YELITZA RIZVI Attending Unavailable DUGLAS HWANGLA B Primary Care Unavailable LEB, YELITZA B Attending Unavailable DADA, CASANDRA B Primary Care Unavailable LEB, YELITZA B Attending Unavailable DADA, CASANDRA B Primary Care Unavailable [facility] FIELD RESEARCH ASSISTANT-IMPORT/EXPORT CLERK, Casandra B Primary Care Provider Leland FIELD RESEARCH ASSISTANT-IMPORT/EXPORT CLERK, Libra Vargas Unavailable Unava ilable DADA, CASANDRA B Primary Care Unavailable LEB, YELITZA B Referring Unavailable DADA, CASANDRA B Primary Care Unavailable LEB, YELITZA B Referring Unavailable DADA, CASANDRA B Primary Care Unavailable LEB, YELITZA B Referring Unavailable DADA, CASANDRA B Primary Care Unavailable LEB, YELITZA B Referring Unavailable DADA, CASANDRA B Primary Care Unavailable LEB, YELITZA B Referring Unavailable DADA, CASANDRA B Primary Care Unavailable DADA, CASANDRA B Primary Care Unavailable LEB, YELITZA B Referring Unavailable DADA, CASANDRA B Primary Care Unavailable LEB, YELITZA B Referring Unavailable DADA, CASANDRA B Primary Care Unavailable LEB, YELITZA B Referring Unavailable DADA, CASANDRA B Primary Care Unavailable DADA, CASANDRA B Referring Unavailable DADA, CASANDRA B Primary Care Unavailable DADA, CASANDRA B Referring Unavailable DADA, CASANDRA B Primary Care Unavailable DADA, CASANDRA B Primary Care Unavailable WADE GUNTER Attending Unavailable LEB, YELITZA B Referring Unavailable DADA, CASANDRA B Primary Care Unavailable LEB, YELITZA B Referring Unavailable DADA, CASANDRA B Primary Care Unavailable LEB, YELITZA B Admitting Unavailable LEB, YELITZA B Attending Unavailable DADA, CASANDRA B Primary Care Unavailable LEB, YELITZA B Referring Unavailable DADA, CASANDRA B Primary Care Unavailable LEB, YELITZA B Referring Unavailable DADA, CASANDRA B Primary Care Unavailable LEB, YELITZA B Referring Unavailable DADA, CASANDRA B Primary Care Unavailable RADHA SAHU Attending Unavailable LEB, YELITZA B Referring Unavailable DADA, CASANDRA B Primary Care Unavailable LEB, YELITZA B Referring Unavailable DADA, CASANDRA B Primary Care Unavailable LEB, YELITZA B Referring Unavailable DADA, CASANDRA B Primary Care Unavailable LEB, YELITZA B Referring Unavailable DADA, CASANDRA B Primary Care Unavailable LEB, YELITZA B Referring Unavailable DADA, CASANDRA B Primary Care Unavailable LEB, YELITZA B Referring Unavailable DADA, CASANDRA B Primary Care Unavailable Care Physician, No Primary Primary Care Provider Unavailable DougDr. Matt Marques DO Emergency Provider Dr. Matt Barnes DO Attending Provider Matt Barnes Attending Noel e Care Physician, No Primary Primary Care Unava ilable Matt Barnes Attending Noel e Care Physician, No Primary Primary Care Unava ilable Unavailable Unavailable Unavailable Allergies Allergy Classification Reported Allergen(s) Allergy Type Date of Onset Reaction(s) Facility (2 sources) Penicillins Allergy to substance 5 PT UNABLE TO RESPOND-NEEDS F/U [facility] (1 source) Penicillins Drug allergy (disorder) 5 [facility] Repository Medications Current Medications Medication Drug Class(es) [...] (only) cyclobenzaprine hydrochloride 5 mg oral tablet (6 sources) Muscle Relaxant Start : 10-03 End: 12-10 take 1 tablet by mouth three times daily as needed for muscle spasms Cyclobenzaprine 5 mg tablet Active 5 mg PO THREE TIMES A DAY as needed for muscle spasm 9 3 0 December 10, 2024 12:00am Start: 08-11-2022 End: 08-17-2022 take [...] sources) Nonsteroidal Anti-inflammatory Drug Start: 024 End: diclofenac sodium (Voltaren) 1 % gel Indications: [...] 0.9% 50 mL IV (1 source) Start: 12-16-2 024 6.25 mg, intravenous, Administer over 15 Minutes, [...] End: 03-21-2024 2 mg, intravenous, Once, On Thu03/21/24 at [...] including migraine; Translations: [Headache, unspecified] Onset: 08-04-2022 Nonspecific chest pain (1 source) Other chest pain; Translations: [Other chest pain] Onset: 12-12-2024 Episodic Open wounds of extremities (2 sources) Laceration [...] of head, initial encounter] 09-20-2023 Episodic Other injuries and conditions due to external causes (1 source) Contusion of rib; Translations: [Other specified injuries of thorax, initial encounter] 12-10-2024 Episodic Other nervous system disorders (2 sources) Paresthesia of upper limb; Translations: [Anesthesia of skin] 08-21-2023 Episodic Other nervous system disorders (1 source) Paresthesia of hand ; Translations: [Anesthesia of skin] 08-21-2023 Episodic Other screening for suspected conditions (not mental disorders or infectious disease) (12 sources) Patient encounter status; Translations: [Encounter for [...] Spondylosis; intervertebral disc disorders; other back problems (3 sources) Muscle spasm of back; Translations: [Spasm [...] Reference Range Facility Emergency Department Summary on 12-10-2024 Emergency Department Summary [facility] Medical Records Department [address] [place] [address] Emergency Department Summary 12/10/24 MR#: [id number] Acct: [id number] Name: MERVINOLIVIER REDD Rep #: [id number] : 1995 29 From: Matt Barnes DO PCP: Care Physician,No Primary Status:REG ER Location: ED HPI History of Present Illness Chief Complaint: Chest Other Narrative Narrative: Chief complaint and HPI: 29-year-old male with no significant past medical history presents for evaluation of left-sided chest pain. Patient states a week ago he was playing basketball in which he fell and landed on his left chest/side. Patient states since the injury he has had pain in the left side of his chest. Worse with movement. Denies any fever, chills, abdominal pain, nausea, vomiting, numbness/tingling. Review of systems: See HPI Medications: As listed on the chart Allergies: As listed on the chart PFSH: Per chart Vital signs: As listed on the chart. Reviewed. Physical exam: Gen: A O x3, NAD Head: Normocephalic, atraumatic Eyes: No sclera icterus, conjunctiva clear ENT: Moist mucous membranes Neck: Trachea midline, No JVD CV: RRR, no murmurs, no peripheral edema, tender to palpation of the anterior and lateral left ribs diffusely-palpation reproduces his pain, no obvious external signs of trauma, no crepitus or erythema, radial pulses +2 bilaterally Resp: Lungs CTA BL, no w/r/c GI: Abd soft, non-distended, non-tender, no r/r/g Musc: Full ROM, no deformity Skin: Warm, dry Neuro: Alert, oriented, grossly intact, sensation intact Psych: Cooperative, appropriate mood and affect PFSH PFSH Medical History no medical history Home Medications ???Medication ???Instructions ???Recorded ???Last Taken ???Type NK 12/10/24 Unknown History Allergy/AdvReac Type Severity Reaction Status Date / Time Penicillins (PCN) Allergy PT UNABLE Verified 12/10/24 19:46 TO RESPOND-NEEDS F/U Social History (Updated 02/14/20 @ 13:39 by RENY Van) Smoking Status: Never smoker EXAM Physical Exam Const Vital Signs: 12/10/24 19:46 12/10/24 20:04 Temperature 96.8 F L Temperature Source Temporal Pulse Rate 57 L Respiratory Rate 18 Respiratory Effort Normal Blood Pressure 157/89 H Blood Pressure Mean 111 Pulse Ox 100 Oxygen Delivery Method Room Air MDM MDM MDM Narrative Medical decision making narrative: 29-year-old male with no significant past medical history presents for evaluation of left-sided chest pain. Patient states a week ago he was playing basketball in which he fell and landed on his left chest/side. Patient states since the injury he has had pain in the left side of his chest. Worse with movement. On presentation, patient no acute distress. He has tenderness to palpation of the anterior and lateral left ribs diffusely-palpation reproduces his pain, no obvious external signs of trauma, no crepitus or erythema. Differential diagnosis includes but is not limited to rib contusion, rib fracture, myofascial spasm. Toradol ordered for pain. X-ray of the left ribs ordered. I do not think any laboratory workup is needed at this time. X-ray of the ribs without fracture or intrathoracic abnormality such as cardiomegaly, effusion, pneumothorax, pneumonia. Radiology in agreement. On reevaluation, patient's symptoms have improved with Toradol. Suspect patient's symptoms are secondary to rib contusion versus myofascial spasm. Ibuprofen and Tylenol as needed for pain. Will give muscle relaxers. Follow-up with PCP. He confirmed understand the plan. Patient will discharge home. Impression: 1. Left chest pain 2. Rib contusions versus myofascial spasm Radiography Diagnostic Testing: Clinical Impression(s) from Imaging Studies Ribs w/Chest X-Ray 12/10/24 20:20 IMPRESSION: Negative left ribs. Reading Location: [facility] Discharge Plan Triage Chief Complaint: Chest Other ED Provider: Matt Barnes Dx/Rx/DC Orders Prescriptions: No Action NK Primary Care Provider: Care Physician,No Primary Referrals: Care Physician,No Primary [Primary Care Provider] - Print Language: Afghan What to do if you have Problems For any increased pain, shortness of breath, bleeding, nausea or vomiting, chest pain, or any unexpected problems, contact your Primary Care Provider. Call [facility] ([phone]) or report to the closest Emergency Room. Call 911 if necessary. 12/10/242143 Cosigner Signature (if applicable): CC: No Primary Care Physician Signed Normal [facility] Ribs Uni Min 3V w/PA Cheston 12-10-2024 Ribs Uni Min 3V w/PA Chest [facility] Imaging Services [address] [place] [address] Ribs Uni Min 3V w/PA Chest MR#: [id number] Acct: [id number] Name: OLIVIER JEFFRIES Rep #: [id number] : 1995 M 29 From: Freedom Sinclair MD PCP: Care Physician,No Primary Status: REG ER Study: Ribs Uni Min 3V w/PA Chest Date of Exam: 12/10 Exam# [id number] Ordering Dr: Matt Barnes DO PROCEDURE: RIBS UNI MIN 3V W/PA CHEST 12/10/2024 REASON FOR EXAM: PAIN, FALL TECHNIQUE: Procedure Code: RADRIB Modality: DX Procedure: RIBS UNI MIN 3V W/PA CHEST FINDINGS: Single view of the chest and multiple views of the left ribs. The left lung is clear. No rib fracture is identified. RAD/Ribs Uni Min 3V w/PA Chest IMPRESSION: Negative left ribs. Reading [facility] CC: Dr. Matt Barnes, DO; No Primary Care Physician International Representative: Signed Normal [facility] Emergency Department Summary on 10-03-2024 Emergency Department Summary [facility] Medical Records Department [address] [place] [address] Emergency Department Summary 10/03/24 MR#: [id number] Acct: [id number] Name: OLIVIER JEFFRIES Rep #: [id number] : 1995 29 From: Matt Barnes DO [...] intact Psych: Cooperative, appropriate mood and affect [facility] Home Medications ???Medication ???Instructions ???Recorded ???Last Taken [...] no ibupro (more content not included)... Normal [facility] POINT OF CARE ULTRASOUND NO CHARGEon 06-23-2024 POINT OF CARE ULTRASOUND NO CHARGE These images are not reportable by radiology and will not be interpreted by Radiologists. Normal [facility] US Abdomenon 06-23-2024 These images are not reportable by radiology and will not be interpreted by Radiologists. IMAGING POINT OF CARE ULTRASOUND NO CHARGEon 05-06-2024 POINT OF CARE ULTRASOUND NO CHARGE These images are not reportable by radiology and will not be interpreted by Radiologists. Normal [facility] US Abdomenon 05-06-2024 These images are not reportable by radiology and will not be interpreted by Radiologists. IMAGING POINT OF CARE ULTRASOUND NO CHARGEon 04-29-2024 POINT OF CARE ULTRASOUND NO CHARGE These images are not reportable by radiology and will not be interpreted by Radiologists. Normal [facility] XR SHOULDER RIGHT 2+ VIEWSon 03-29-2024 XR SHOULDER RIGHT 2+ VIEWS Interpreted By: Juno Maynard, STUDY: XR SHOULDER RIGHT 2+ VIEWS; ; 03/29/2024 8:56 am INDICATION: Signs/Symptoms:POV RIGHT SHOULDER FATUMA AND SAD. ,M19.019 Primary osteoarthritis, unspecified shoulder COMPARISON: None. ACCESSION NUMBER(S): [id number] ORDERING CLINICIAN: YELITZA RIZVI FINDINGS: Two views of the right shoulder. Presumed postsurgical changes status post distal clavicular resection. No acute fracture. No dislocation. The soft tissues are unremarkable. IMPRESSION: Such presumed postsurgical changes status post distal clavicular resection. 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 MACRO: None Signed by: Juno Maynard 04/03/2024 12:36 PM Dictation workstation: [id number] [facility] Basic metabolic 2000 panelon 02-26-2024 Anion gap [Moles/Vol] 9 mmol/L Low 10-20 [facility] Comment on above: Performed By: #### 2 4323-8 #### GEORGIA GUNN ([id number]) [facility] ([facility]) [address] [place] [address] 78992 Calcium [Mass/Vol] 9.7 mg/dL Normal 8.6-10.3 [facility] Comment on above: Performed By: #### 2 4323-8 #### GEOR[place]IA GUNN ([id number]) [facility] ([facility]) [address] [place] [address] 14062 Chloride [Moles/Vol] 104 mmol/L Normal 98-[address] [facility] Comment on above: Performed By: #### 2 4323-8 #### GE[place]IA GUNN ([id number]) [facility] ([facility]) [address] [place] [address] CO2 [Moles/Vol] 30 mmol/L Normal 21-32 [facility] Comment on above: Performed By: #### 2 4323-8 #### GEORGIA GUNN ([id number]) [facility] ([facility]) [facility] [place] [address] Creatinine [Mass/Vol] 0.82 mg/dL Normal 0.50-1.30 [facility] Comment on above: Performed By: #### 2 4323-8 #### GEOR[place]IA GUNN ([id number]) [facility] ([facility]) [address] [place] [address] 21224 GFR/1.73 sq M.predicted MDRD (S/P/Bld) [Vol rate/Area] mL/min/{1.73_m2} Normal >60 [facility] Comment on above: Result Comment: Calc ulations of estimated GFR are performed using the 2020 CKD-EPI Study Refit equation without the race variable for the IDMS-Traceable creatinine methods. https://jasn.asnjournals.org/content//ASN.95461 05333 Performed By: #### 2 4323-8 #### GEORGIA GUNN ([id number]) [facility] ([facility]) [address] [place] [address] 35602 Glucose [Mass/Vol] 97 mg/dL Normal 74-99 [facility] Comment on above: Performed By: #### 2 4323-8 #### GE[place] GUNN ([id number]) [facility] ([facility]) [address] [place] [address] 45413 Potassium [Moles/Vol] 4.3 mmol/L Normal 3.5-5.3 [facility] Comment on above: Performed By: #### 2 4323-8 #### GEORGIA GUNN ([id number]) [facility] ([facility]) [address] [place] [address] 80245 Sodium [Moles/Vol] 139 mmol/L Normal 136-145 [facility] Comment on above: Performed By: #### 2 4323-8 #### GEORGIA GUNN ([id number]) [facility] ([facility]) [address] [place] [address] 59015 Urea nitrogen [Mass/Vol] 18 mg/dL Normal 6-23 [facility] Comment on above: Performed By: #### 2 4323-8 #### GEORGIA GUNN ([id number]) [facility] ([facility]) [address] [place] [address] 93164 CBC panel Auto (Bld)on 02-25 Erythrocyte distribution width (RBC) [Ratio] 12.3 % Normal 11.5-14.5 [facility] Comment on above: Performed By: #### 5 8410-2 #### GEORGIA GUNN ([id number]) [facility] ([facility]) [address] [place] [address] 34511 Hematocrit (Bld) [Volume fraction] 43.8 % Normal 41.0-52.0 [facility] Comment on above: Performed By: #### 5 8410-2 #### GEORGIA GUNN ([id number]) [facility] ([facility]) [address] [place] [address] 71883 Hemoglobin (Bld) [Mass/Vol] 14.9 g/dL Normal 13.5-17.5 [facility] Comment on above: Performed By: #### 5 8410-2 #### GEORGIA GUNN ([id number]) [facility] ([facility]) [address] [place] [address] 15390 MCH (RBC) [Entitic mass] 30.6 pg Normal 26.0-34.0 [facility] Comment on above: Performed By: #### 5 8410-2 #### GEORGIA GUNN ([id number]) [facility] ([facility]) [address] [place] [address] 93649 MCHC (RBC) [Mass/Vol] 34.0 g/dL Normal 32.0-36.0 [facility] Comment on above: Performed By: #### 5 8410-2 #### GEORGIA GUNN ([id number]) [facility] ([facility]) [address] [place] [address] 26668 MCV (RBC) [Entitic vol] 90 fL Normal 80-100 [facility] Comment on above: Performed By: #### 5 8410-2 #### GEORGIA GUNN ([id number]) [facility] ([facility]) [address] [place] [address] 96259 Nucleated RBC/100 WBC (Bld) [Ratio] 0.0 /100 WBCs Normal 0.0-0.0 [facility] Comment on above: Performed By: #### 5 8410-2 #### GEORGIA GUNN ([id number]) [facility] ([facility]) [address] [place] [address] 92301 Platelets (Bld) [#/Vol] 266 x10*3/uL Normal 150-450 [facility] Comment on above: Performed By: #### 5 8410-2 #### GEOR[place]IA GUNN ([id number]) [facility] ([facility]) [address] [place] [address] 70182 RBC (Bld) [#/Vol] 4.87 x10*6/uL Normal 4.50-5.[address] [facility] Comment on above: Performed By: #### 5 8410-2 #### HO LUIS A ([id number]) [facility] ([facility]) [address] [place] [address] WBC (Bld) [#/Vol] 8.7 x10*3/uL Normal 4.4-11.3 [facility] Comment on above: Performed By: #### 5 8410-2 #### GEORGIA LUIS A ([id number]) [facility] ([facility]) [address] [place] [address] POINT OF CARE ULTRASOUND NO CHARGEon 02-26-2024 POINT OF CARE ULTRASOUND NO CHARGE These images are not reportable by radiology and will not be interpreted by Radiologists. Normal [facility] US Abdomenon 02-26-2024 These images are not reportable by radiology and will not be interpreted by Radiologists. IMAGING POINT OF CARE ULTRASOUND NO CHARGEon 02-02-2024 POINT OF CARE ULTRASOUND NO CHARGE These images are not reportable by radiology and will not be interpreted by Radiologists. Normal [facility] US Abdomenon 02-02-2024 These images are not reportable by radiology and will not be interpreted by Radiologists. IMAGING POINT OF CARE ULTRASOUND NO CHARGEon 12-23-2023 POINT OF CARE ULTRASOUND NO CHARGE These images are not reportable by radiology and will not be interpreted by Radiologists. Normal [facility] US Abdomenon 12-23-2023 These images are not reportable by radiology and will not be interpreted by Radiologists. IMAGING XR SHOULDER RIGHT 2+ VIEWSon 12-23-2023 XR SHOULDER RIGHT 2+ VIEWS Interpreted By: Kay Rene, STUDY: Right shoulder, 6 views. INDICATION: Signs/Symptoms:CHRONI C R SHOULDER PAIN. COMPARISON: 08/21/2023. ACCESSION NUMBER(S): [id number] ORDERING CLINICIAN: YELITZA RIZVI FINDINGS: No acute fracture or malalignment. No significant degenerative changes. Soft tissues are unremarkable. IMPRESSION: 1. Unremarkable right shoulder radiographs. MACRO: None. Signed by: Kay Rene 12/24/2023 8:30 PM Dictation workstation: [id number] [facility] POINT OF CARE ULTRASOUND NO CHARGEon 12-22-2023 POINT OF CARE ULTRASOUND NO CHARGE These images are not reportable by radiology and will not be interpreted by Radiologists. Normal [facility] US Abdomenon 12-22-2023 These images are not reportable by radiology and will not be interpreted by Radiologists. IMAGING POINT OF CARE ULTRASOUND NO CHARGEon 11-24-2023 POINT OF CARE ULTRASOUND NO CHARGE These images are not reportable by radiology and will not be interpreted by Radiologists. Normal [facility] US Abdomenon 11-24-2023 These images are [...] INTO CEMENT BLOCK. COMPARISON: None. ACCESSION NUMBER(S): [id number]; [id number] ORDERING CLINICIAN: KYUNG ESPOSITO TECHNIQUE: Noncontrast CT images of head. Axial [...] Renetta Cervantes 09/20/2023 7:26 PM Dictation workstation: [id number] [facility] CT HEAD WO IV CONTRASTon CT HEAD WO IV CONTRAST Interpreted By: Renetta Cervantes, STUDY: CT HEAD WO IV CONTRAST; CT CERVICAL SPINE WO IV CONTRAST; 09/20/2023 7:01 pm INDICATION: Signs/Symptoms:HEAD INJURY/DOVE INTO CEMENT BLOCK; Signs/Symptoms:NECK PAIN AFTER DIVING INTO CEMENT BLOCK. COMPARISON: None. ACCESSION NUMBER(S): [id number]; [id number] ORDERING CLINICIAN: KYUNG ESPOSITO TECHNIQUE: Noncontrast CT images of head. Axial [...] Renetta Cervantes 09/20/2023 7:26 PM Dictation workstation: [id number] [facility] No Panel Informationon 09-19 No acute intracrania l hemorrhage or mass effect. No acute fracture or traumatic subluxation of the cervical spine. Mild reversal the cervical curvature which may be positional related to muscle spasm. MACRO: None. Signed by: Renetta Cervantes 09/20/2023 7:26 PM Dictation workstation: [id number] [facility] Interpreted By: Renetta Cervantes, STUDY: CT HEAD WO IV CONTRAST; CT CERVICAL SPINE WO IV CONTRAST; 09/20/2023 7:01 pm INDICATION: Signs/Symptoms:HEAD INJURY/DOVE INTO CEMENT BLOCK; Signs/Symptoms:NECK PAIN AFTER DIVING INTO CEMENT BLOCK. COMPARISON: None. ACCESSION NUMBER(S): [id number]; [id number] ORDERING CLINICIAN: KYUNG ESPOSITO TECHNIQUE: Noncontrast CT images of head. Axial [...] are within normal limits. OTHER FINDINGS: None. [facility] Renetta Cervantes D O - 09/20/2023 Interpreted By: Renetta Cervantes, STUDY: CT HEAD WO IV CONTRAST; CT CERVICAL SPINE WO IV CONTRAST; 09/20/2023 7:01 pm INDICATION: Signs/Symptoms:HEAD INJURY/DOVE INTO CEMENT BLOCK; Signs/Symptoms:NECK PAIN AFTER DIVING INTO CEMENT BLOCK. COMPARISON: None. ACCESSION NUMBER(S): [id number]; [id number] ORDERING CLINICIAN: KYUNG ESPOSITO TECHNIQUE: Noncontrast CT images of head. Axial [...] Renetta Cervantes 09/20/2023 7:26 PM Dictation workstation: [id number] [facility] Work Phone: Radiology Study observation (narrative) [facility] Work Phone: No Panel InformationOrdered By: Renetta Cervantes on 09-20-2023 [facility] Work Phone: L Inj/Asp: R subacromial bur saon 09-11-2023 Libra Ha APRN-IMPORT/EXPORT CLERK 09/11/2023 10:36 AM L Inj/Asp: R subacromial [...] to verify the correct patient, procedure, equipment, senior technical support analyst and site/side marked as required. Patient was prepped and draped in the usual sterile fashion. [facility] Work Phone: [facility] Work Phone: MR SHOULDER RIGHT WO IV CONT Clair 08-27-2023 MR SHOULDER RIGHT WO IV CONTRAST Interpreted By: Juno Maynard, STUDY: MRI of the right shoulder without IV contrast; 08/27/2023 7:51 pm INDICATION: Signs/Symptoms:right shoulder pain with n/t down arm, weakness. COMPARISON: 08/21/2023 ACCESSION NUMBER(S): [id number] ORDERING CLINICIAN: CASANDRA HWANG TECHNIQUE: MR imaging [...] Juno Maynard 08/28/2023 9:03 AM Dictation workstation: [id number] [facility] W Auto Differential pane l (Bld)on 08-21-2023 Basophils (Bld) [#/Vol] 0.03 x10*3/uL Normal 0.00-0.10 [facility] Comment on above: Performed By: #### 5 7021-8 #### GEORGIA GUNN ([id number]) [facility] ([facility]) [address] [place] [address] 83547 Basophils/100 WBC (Bld) 0.3 % Normal 0.0-2.0 [facility] Comment on above: Performed By: #### 5 7021-8 #### GEORGIA GUNN ([id number]) [facility] ([facility]) [address] [place] [address] 15599 Eosinophils (Bld) [#/Vol] 0.24 x10*3/uL Normal 0.00-0.70 [facility] Comment on above: Performed By: #### 5 7021-8 #### GE[place] GUNN ([id number]) [facility] ([facility]) [address] [place] [address] 76656 Eosinophils/100 WBC (Bld) 2.3 % Normal 0.0-6.0 [facility] Comment on above: Performed By: #### 5 7021-8 #### GE[place] GUNN ([id number]) [facility] ([facility]) [address] [place] [address] 63354 Erythrocyte distribution width (RBC) [Ratio] 12.5 % Normal 11.5-14.5 [facility] Comment on above: Performed By: #### 5 7021-8 #### GEOR[place]IA GUNN ([id number]) [facility] ([facility]) [address] [place] [address] 14553 Hematocrit (Bld) [Volume fraction] 40.7 % Low 41.0-52.0 [facility] Comment on above: Performed By: #### 5 7021-8 #### GEOR[place]IA GUNN ([id number]) [facility] ([facility]) [address] [place] [address] 98560 Hemoglobin (Bld) [Mass/Vol] 13.8 g/dL Normal 13.5-17.5 [facility] Comment on above: Performed By: #### 5 7021-8 #### GE[place]IA GUNN ([id number]) [facility] ([facility]) [address] [place] [address] 34793 Immature granulocytes (Bld) [#/Vol] 0.03 x10*3/uL Normal 0.00-0.70 [facility] Comment on above: Performed By: #### 5 7021-8 #### GEOR[place]IA GUNN ([id number]) [facility] ([facility]) [address] [place] [address] 09260 Immature granulocytes/100 WBC (Bld) 0.3 % Normal 0.0-0.9 [facility] Comment on above: Result Comment: Sayra ture Granulocyte Count (IG) includes promyelocytes, myelocytes and metamyelocytes but does not include bands. Percent differential counts (%) should be interpreted in the context of the absolute cell counts (cells/UL). Performed By: #### 5 7021-8 #### GEOR[place]IA GUNN ([id number]) [facility] ([facility]) [address] [place] [address] 74790 Lymphocytes (Bld) [#/Vol] 4.21 x10*3/uL Normal 1.20-4.80 [facility] Comment on above: Performed By: #### 5 7021-8 #### GE[place]IA GUNN ([id number]) [facility] ([facility]) [address] [place] [address] 83700 Lymphocytes/100 WBC (Bld) 40.5 % Normal 13.0-44.0 [facility] Comment on above: Performed By: #### 5 7021-8 #### GE[place]IA GUNN ([id number]) [facility] ([facility]) [address] [place] [address] 96452 MCH (RBC) [Entitic mass] 30.8 pg Normal 26.0-34.0 [facility] Comment on above: Performed By: #### 5 7021-8 #### GEOR[place]IA GUNN ([id number]) [facility] ([facility]) [address] [place] [address] 40245 MCHC (RBC) [Mass/Vol] 33.9 g/dL Normal 32.0-36.0 [facility] Comment on above: Performed By: #### 5 7021-8 #### GEOR[place]IA GUNN ([id number]) [facility] ([facility]) [address] [place] [address] 28490 MCV (RBC) [Entitic vol] 91 fL Normal 80-100 [facility] Comment on above: Performed By: #### 5 7021-8 #### GE[place] GUNN ([id number]) [facility] ([facility]) [address] [place] [address] 15286 Monocytes (Bld) [#/Vol] 0.58 x10*3/uL Normal 0.10-1.00 [facility] Comment on above: Performed By: #### 5 7021-8 #### GE[place] GUNN ([id number]) [facility] ([facility]) [address] [place] [address] 46693 Monocytes/100 WBC (Bld) 5.6 % Normal 2.0-10.0 [facility] Comment on above: Performed By: #### 5 7021-8 #### GE[place] GUNN ([id number]) [facility] ([facility]) [address] [place] [address] 30214 Neutrophils (Bld) [#/Vol] 5.30 x10*3/uL Normal 1.20-7.70 [facility] Comment on above: Result Comment: Perc ent differential counts (%) should be interpreted in the context of the absolute cell counts (cells/uL). Performed By: #### 5 7021-8 #### GE[place]IA GUNN ([id number]) [facility] ([facility]) [address] [place] [address] 21690 Neutrophils/100 WBC (Bld) 51.0 % Normal 40.0-80.0 [facility] Comment on above: Performed By: #### 5 7021-8 #### GE[place] GUNN ([id number]) [facility] ([facility]) [address] [place] [address] 53629 Nucleated RBC/100 WBC (Bld) [Ratio] 0.0 /100 WBCs Normal 0.0-0.0 [facility] Comment on above: Performed By: #### 5 7021-8 #### GE[place] GUNN ([id number]) [facility] ([facility]) [address] [place] [address] 26118 Platelets (Bld) [#/Vol] 279 x10*3/uL Normal 150-450 [facility] Comment on above: Performed By: #### 5 7021-8 #### GEOR[place]IA GUNN ([id number]) [facility] ([facility]) [address] [place] [address] RBC (Bld) [#/Vol] 4.48 x10*6/uL Low 4.50-5.[address] [facility] Comment on above: Performed By: #### 5 7021-8 #### GE[place] GUNN ([id number]) [facility] ([facility]) [address] [place] [address] WBC (Bld) [#/Vol] 10.4 x10*3/uL Normal 4.4-11.[address] [facility] Comment on above: Performed By: #### 5 7021-8 #### GE[place] GUNN ([id number]) [facility] ([facility]) [address] [place] [address] Comprehensive metabolic 2000 panelon 08-21-2023 Albumin BCP dye [Mass/Vol] 4.6 g/dL Normal 3.4-5.0 [facility] Comment on above: Performed By: #### 2 4323-8 #### GE[place] GUNN ([id number]) [facility] ([facility]) [address] [place], [place] [address] ALP [Catalytic activity/Vol] 54 U/L Normal 33-120 [facility] Comment on above: Performed By: #### 2 4323-8 #### GE[place] GUNN ([id number]) [facility] ([facility]) [address] [place] [address] 45718 ALT With P-5'-P [Catalytic activity/Vol] 30 U/L Normal 10-52 [facility] Comment on above: Result Comment: Lety ents treated with Sulfasalazine may generate falsely decreased results for ALT. Performed By: #### 2 4323-8 #### GE[place] GUNN ([id number]) [facility] ([facility]) [address] [place] [address] 82928 Anion gap [Moles/Vol] 12 mmol/L Normal 10-20 [facility] Comment on above: Performed By: #### 2 4323-8 #### GEOR[place]IA GUNN ([id number]) [facility] ([facility]) [address] [place] [address] 74556 AST With P-5'-P [Catalytic activity/Vol] 25 U/L Normal 9-39 [facility] Comment on above: Performed By: #### 2 4323-8 #### GEOR[place]IA GUNN ([id number]) [facility] ([facility]) [address] [place] [address] 43165 Bilirubin [Mass/Vol] 0.6 mg/dL Normal 0.0-1.[address] [facility] Comment on above: Performed By: #### 2 4323-8 #### GEOR[place]IA GUNN ([id number]) [facility] ([facility]) [address] [place] [address] 75419 Calcium [Mass/Vol] 9.2 mg/dL Normal 8.6-10.3 [facility] Comment on above: Performed By: #### 2 4323-8 #### GE[place] GUNN ([id number]) [facility] ([facility]) [address] [place] [address] 67605 Chloride [Moles/Vol] 106 mmol/L Normal 98-[address] [facility] Comment on above: Performed By: #### 2 4323-8 #### GEOR[place] GUNN ([id number]) [facility] ([facility]) [address] [place] [address] 85478 CO2 [Moles/Vol] 25 mmol/L Normal 21-32 [facility] Comment on above: Performed By: #### 2 4323-8 #### GEOR[place] GUNN ([id number]) [facility] ([facility]) [address] [place] [address] 21253 Creatinine [Mass/Vol] 0.92 mg/dL Normal 0.50-1.30 [facility] Comment on above: Performed By: #### 2 4323-8 #### GEOR[place] GUNN ([id number]) [facility] ([facility]) [address] [place] [address] 17305 GFR/1.73 sq M.predicted MDRD (S/P/Bld) [Vol rate/Area] mL/min/{1.73_m2} Normal >60 [facility] Comment on above: Result Comment: Calc ulations of estimated GFR are performed using the 2020 CKD-EPI Study Refit equation without the race variable for the IDMS-Traceable creatinine methods. https://jasn.asnjournals.org/content/early/ASN.27900 17910 Performed By: #### 2 4323-8 #### GEOR[place]IA GUNN ([id number]) [facility] ([facility]) [address] [place] [address] 66964 Glucose [Mass/Vol] 106 mg/dL High 74-99 [facility] Comment on above: Performed By: #### 2 432-8 #### GE[place] GUNN ([id number]) [facility] ([facility]) [address] [place] [address] 29908 Potassium [Moles/Vol] 4.3 mmol/L Normal 3.5-5.3 [facility] Comment on above: Performed By: #### 2 4323-8 #### GE[place] GUNN ([id number]) [facility] ([facility]) [address] [place] [address] 27764 Protein [Mass/Vol] 6.9 g/dL Normal 6.4-8.2 [facility] Comment on above: Performed By: #### 2 4323-8 #### GEOR[place] GUNN (25546) [facility] ([facility]) [address] [place] [address] 30717 Sodium [Moles/Vol] 139 mmol/L Normal 136-145 [facility] Comment on above: Performed By: #### 2 4323-8 #### GEOR[place]IA GUNN ([id number]) [facility] ([facility]) [address] [place] [address] Urea nitrogen [Mass/Vol] 19 mg/dL Normal 6-23 [facility] Comment on above: Performed By: #### 2 4323-8 #### GE[place] GUNN ([id number]) [facility] ([facility]) [facility] [place] [address] Lipid 1996 panelon 4 Cholesterol [Mass/Vol] 121 mg/dL Normal 0-199 [facility] Comment on above: Result Comment: [...] By: #### 2 4331-1 #### GEOR[place]IA GUNN (14714) [facility] ([facility]) [facility] [place] [address] Cholesterol in HDL [Mass/Vol] 49.0 mg/dL Normal [facility] Comment on above: Result Comment: Age Very Low Low Normal High 0-19 Y < 35 < 40 40-45 ---- 20-24 Y ---- < 40 >45 ---- >24 Y ---- < 40 40-60 >60 Performed By: #### 2 4331-1 #### GE[place]IA GUNN (22283) [facility] ([facility]) [facility] [place] [address] Cholesterol in LDL [Mass/Vol] 41 mg/dL Normal <=99 [facility] Comment on above: Result Comment: Near Borderline AGE Desirable Optimal High High Very High 0-19 Y 0 - 109 --- 110-129 >/= 130 ---- 20-24 Y 0 - 119 --- 120-159 >/= 160 ---- >24 Y 0 - 99 100-129 130-159 160-189 >/=190 Performed By: #### 2 4331-1 #### GE[place] GUNN (93358) [facility] ([facility]) [facility] [place] [address] Cholesterol in VLDL [Mass/Vol] 31 mg/dL Normal 0-40 [facility] Comment on above: Performed By: #### 2 4331-1 #### GE[place] GUNN (50900) [facility] ([facility]) [address] [place] [address] 39963 CHOLESTEROL/HDL RATIO 2.5 Normal [facility] Comment on above: Result Comment: Ref Values Desirable < 3.4 High Risk > 5.0 Performed By: #### 2 4331-1 #### GEOR[place] GUNN ([id number]) [facility] ([facility]) [address] [place] [address] 24143 NON HDL CHOLESTEROL 72 mg/dL Normal 0-149 [facility] Comment on above: Result Comment: Age Desirable Borderline High High Very High 0-19 Y 0 - 119 120 - 144 >/= 145 >/= 160 20-24 Y 0 - 149 150 - 189 >/= 190 ---- >24 Y 30 mg/dL above LDL Cholesterol goal Performed By: #### 2 4331-1 #### GE[place] GUNN ([id number]) [facility] ([facility]) [address] [place] [address] 19452 Triglyceride [Mass/Vol] 153 mg/dL High 0-149 [facility] Comment on above: Result Comment: Age [...] By: #### 2 4331-1 #### GEOR[place]IA GUNN ([id number]) [facility] ([facility]) [address] [place] [address] 20747 TSH WITH REFLEX TO FREE T4 I F ABNORMALon 08-21-2023 TSH Qn 0.64 m[IU]/L Normal 0.44-3.98 [facility] Comment on above: Order Comment: TSH t esting is performed using different testing methodology at [facility] than at other [facility]. Direct result comparisons should only be made within the same method. Performed By: #### T HYDS #### GE[place] GUNN ([id number]) [facility] ([facility]) [address] [place] [address] 04151 XR SHOULDER RIGHT 2+ VIEWSon 08-21-2023 XR SHOULDER RIGHT 2+ VIEWS Interpreted By: Star Rodriguez, STUDY: XR SHOULDER RIGHT 2+ VIEWS INDICATION: Signs/Symptoms:right shoulder pain. COMPARISON: None ACCESSION NUMBER(S): [id number] ORDERING CLINICIAN: CASANDRA HWANG FINDINGS: No osseous, articular, or soft tissue abnormality. IMPRESSION: Normal radiographs right shoulder. Signed by: Star Rodriguez 08/23/2023 5:42 PM Dictation workstation: [id number] Normal [facility] CT L-SPINE WO CONTRASTon CT L-SPINE WO CONTRAST Patient Name: OLIVIER JEFFRIES STUDY: CT L-SPINE WO CONTRAST; 08/11/2022 8:44 am INDICATION: Low back pain with radiation on right side . COMPARISON: None. ACCESSION NUMBER(S): [id number] ORDERING CLINICIAN: AUSTIN ALMAGUER TECHNIQUE: Unenhanced axial [...] evaluation. Electronically signed by: SUMAN CHAVES MD [facility] Provider Note - ED v3on 05-0 Provider [...] Psych: Maintains eye contact. Cooperative. ED course: Donny was seen and evaluated due to increasing [...] he was discharged home prescriptions for her Perrinton after an OARRS report was obtained. Patient also was prescribed Naprosyn and prednisone. He was referred to a spine surgeon at [facility] and also for Workmen's Comp. follow-up. Patient was provided work restrictions due to his back injury.. This chart was dictated with the use of [employer] software within the framework of the current [...] trouble li (more content not included)... Normal [facility] Provider Note - ED v3on 05-0 Provider Note - ED v3 Provider Note: Chart Review: ED NOTES ED NOTES: Patient presents for evaluation of sinus pressure. Patient reports 1 week of progressively worsening maxillary sinus pain, nasal congestion, and headache. There is reported mild postnasal drip and ear pressure. No fever, cough, or other constitutional signs and symptoms. Symptoms have been refractory to ztsw-ffj-eatwflt medications. HISTORY OF PRESENTING ILLNESS OLIVIER is [...] SIGNS: T PRBP SpO2O2(LPM) %FiO2 Method 04-Aug-2022 17:03:00-36.79144341/ 86 98 MDM MDM/ED COURSE: Discussed Findings [...] ill patient: no Electronic Signatures: Rafal Bergeron (FIELD RESEARCH ASSISTANT-IMPORT/EXPORT CLERK) (Signed 04-Aug-2022 17:25) Authored: ED Notes, HPI, PMH, ROS, PE, Results/Vital Signs, MDM/ED Course, Clinical Impression, Attestation, Chart Review, Scores Last Updated: 04-Aug-2022 17:25 by Rafal Bergeron (FIELD RESEARCH ASSISTANT-IMPORT/EXPORT CLERK) Normal [facility] GROUP A STREP,PCRon 02-07-20 22 GROUP A STREP,PCR Not detected Normal Not Detected [facility] Comment on above: Result Comment: This test was performed utilizing an FDA-cleared rapid nucleic acid amplification by PCR to qualitatively detect Group A Streptococci from throat swab specimens without the need for culture confirmation of negative results. Performed By: #### G APC1 #### [place] [address] Lab Specimen Source Throat Normal [facility] Comment on above: Performed By: #### G APC1 #### [place] [address] Provider Note - ED v3on 11-0 3-2022 Provider Note - ED v3 Provider Note: [...] SIGNS: T PRBP SpO2O2(LPM) %FiO2 Method 06-Feb-2022 12:30:00-36.41567321/ 68 96 MDM MDM/ED COURSE: This note [...] a little worse. Has not tried any ldhv-uym-hwgjkzr medications or home remedies for symptom management. [...] Bowel sounds normoactive. Musculoskeletal: Grossly normal Integumentary: [place], warm, dry, and intact. No rashes or [...] even if (more content not included)... Normal [facility] EMERGENCY REPORTon 1 EMERGENCY REPORT [facility] EMERGENCY ROOM REPORT NAME ACCOUNT SEX AGE ADMIT DISCHARGE PT MED. RECORD# NUMBER DATE DATE TYPE OLIVIER JEFFRIES [id number] Sam 25 07/15/20 07/15/20 3 [id number] ROOM: ER DATE OF : 1995 DICTATING [...] Emergency Room Report OLIVIER JEFFRIES : 1995 07/15/20 20:54 JOB #: [id number] Transcribed By: margret 07/16/20 12:26 Electronically signed by: DR. GEMMA LOZADA DO 07/27/20 20:17 Page 2 of 2 OLIVIER JEFFRIES Emergency Room Report Normal [facility] EMERGENCY REPORTon 1 EMERGENCY REPORT [facility] EMERGENCY ROOM REPORT NAME ACCOUNT SEX AGE ADMIT DISCHARGE PT MED. RECORD# NUMBER DATE DATE TYPE OLIVIER JEFFRIES [id number] M 07/12/20 07/12/20 3 [id number] ROOM: ER DATE OF : 1995 DICTATING [...] abscess cavity. This was irrigated, and a tkerq-ba-bvxmpcuw amount of purulent drainage was obtained. A small amount of iodoform packing was placed in this area to keep it open. A dressing was placed. Page 1 of 2 OLIVIER JEFFRIES Emergency Room Report OLIVIER JEFFRIES : 1995 DIAGNOSIS: Right axilla skin abscess with incision and drainage, probable Methicillin-resistant Staphylococcus aureus. PLAN/DISPOSITION: He was given a prescription for Bactrim DS, small amount of P[place] for pain. I recommended not working his job today, proceeding tomorrow as needed. Abscess/wound care instructions were given. He is to return if he has no significant improvement or in a couple of days for packing removal. Dictated By: Lewis Oliver MD 07/12/20 07:48 JOB #: [id number] Transcribed By: charlene 07/12/20 15:31 Electronically signed by: ULISSES Oliver M.D. 07/16/20 07:23 Page 2 of 2 OLIVIER JEFFRIES Emergency Room Report Normal [facility] EMERGENCY REPORTon 1 EMERGENCY REPORT [facility] EMERGENCY ROOM REPORT NAME ACCOUNT SEX AGE ADMIT DISCHARGE PT MED. RECORD# NUMBER DATE DATE TYPE OLIVIER JEFFRIES [id number] M 25 06/20/20 06/20/20 3 [id number] ROOM: ER DATE OF : 1995 DICTATING [...] DIAGNOSIS: Alcohol intoxication. Page 1 of 2 [facility] Emergency Room Report OLIVIER JEFFRIES : 1995 Dictated By: Wade Gunter DO 07/02/20 08:09 JOB #: [id number] Transcribed By: brian 07/02/20 12:53 Electronically signed by: E-SIGN: Wade Gunter D.O. 07/10/20 07:25 Page 2 of 2 [facility] Emergency Room Report Normal [facility] URINE COTININE TEST [TAJ BLACK]on 03-02-2020 COTININE Negative Normal NORMAL: NEGATIVE [facility] Comment on above: Result Comment: The COT [...] after nicotine use. Performed By: #### 2 22001 #### [facility],[address] [place] [address] 33773 Acetamnphn Lvlon 04-17-2018 Acetaminoph Lvl <10 Normal 10-30 [facility] Comment on above: Performed By: #### 2 760815 ####DOV [address] [place] [address] Auto Diffon 04-17-2018 Basophils Auto #/vol (Bld) 0.0 E3/mcL Normal 0.0-0.2 [facility] Comment on above: Order Comment: Order Added by Discern Expert. Performed By: #### 2 308303 ####DOV [address]fs[address] [place] [address] Basophils/100 WBC Auto (Bld) 0.5 % Normal 0.0-2.0 [facility] Comment on above: Order Comment: Order Added by Discern Expert. Performed By: #### 2 735562 ####DOV [address] [place] [address] Eos Absolute 0.2 E3/mcL Normal 0.0-0.7 [facility] Comment on above: Order Comment: Order Added by Discern Expert. Performed By: #### 2 900142 ####DOV [address] [place] [address] Eosinophils/100 WBC Auto (Bld) 2.2 % Normal 0.0-11.0 [facility] Comment on above: Order Comment: Order Added by Discern Expert. Performed By: #### 2 240139 ####DOV [address]hnKtdo46[address] [place] [address] Lymphocytes Auto #/vol (Bld) 2.6 E3/mcL Normal 1.2-3.4 [facility] Comment on above: Order Comment: Order Added by Discern Expert. Performed By: #### 2 007497 ####DOV [address]goXvhm[address] [place] [address] Lymphocytes/100 WBC Auto (Bld) 30.0 % Normal 20.0-55.0 [facility] Comment on above: Order Comment: Order Added by Discern Expert. Performed By: #### 2 022725 ####DOV [address] [place] [address] [place] Absolute 0.6 E3/mcL Normal 0.0-0.7 [facility] Comment on above: Order Comment: Order Added by Discern Expert. Performed By: #### 2 937622 ####DOV [address] [place] [address] Monocytes/100 WBC Auto (Bld) 6.4 % Normal 0.0-10.0 [facility] Comment on above: Order Comment: Order Added by Discern Expert. Performed By: #### 2 229259 ####DOV [address] [place] [address] Neutro Absolute 5.4 E3/mcL Normal 1.4-6.5 [facility] Comment on above: Order Comment: Order Added by Discern Expert. Performed By: #### 2 908145 ####DOV [address] [place] [address] Neutro Auto 60.9 % Normal 37.0-75.0 [facility] Comment on above: Order Comment: Order Added by Discern Expert. Performed By: #### 2 020717 ####DOV [address] [place] [address] BMPon 04-17-2018 Anion gap 3 molar conc 12 mmol/L Normal 10-20 [facility] Comment on above: Performed By: #### 2 513827 ####DOV [address]ciRgmc[address] [place] [address] Calcium mass conc 8.9 mg/dL Normal 8.6-10.3 [facility] Comment on above: Performed By: #### 2 156398 ####DOVChristy [address]entes[address]jZdex[address] [place] [address] Chloride molar conc 107 mmol/L Normal 98-107 [facility] Comment on above: Performed By: #### 2 111757 ####DOVChristy Fuentes[address]hvMwvc[address] [place] [address] CO2 molar conc 27.0 mmol/L Normal 21.0-32.0 [facility] Comment on above: Performed By: #### 2 024893 ####DOV [address] [place] [address] Creatinine mass conc 0.8 mg/dL Normal 0.5-1.3 [facility] Comment on above: Performed By: #### 2 693458 ####DOV [address] [place] [address] Glucose mass conc 101 mg/dL High 70-99 [facility] Comment on above: Performed By: #### 2 [id number] ####DOV [address]iro[address] [place] [address] Potassium molar conc 3.6 mmol/L Normal 3.5-5.3 [facility] Comment on above: Performed By: #### 2 [id number] ####DOV [address] [place] [address] Sodium molar conc 142 mmol/L Normal 136-145 [facility] Comment on above: Performed By: #### 2 [id number] ####DOV [address] [place] [address] Urea nitrogen mass conc 11 mg/dL Normal 6-23 [facility] Comment on above: Performed By: #### 2 [id number] ####DOV FuentesByoJxky[address] [place] [address] Urea nitrogen/Creatinine mass ratio 13.8 ratio Normal 5.4-30.0 [facility] Comment on above: Performed By: #### 2 [id number] ####DOV FuentesUzwTakz[address] [place] [address] CBC w/ Auto Diffon 9 Erythrocyte distribution width Auto Ratio (RBC) 13.0 % Normal 11.5-14.5 [facility] Comment on above: Performed By: #### 2 [id number] ####DOV FuentesKanPwhj[address] [place] [address] Hematocrit Auto Volume Fraction (Bld) 45.6 % Normal 42.0-52.0 [facility] Comment on above: Performed By: #### 2 [id number] ####DOV FuentesQfoQxdv44[address] [place] [address] Hemoglobin mass conc (Bld) 15.3 g/dL Normal 13.5-18.0 [facility] Comment on above: Performed By: #### 2 [id number] ####DOV JbcNzpb1606 [place] [address] MCH Auto Entitic mass (RBC) 30.9 pg Normal 27.0-31.0 [facility] Comment on above: Performed By: #### 2 [id number] ####DOV HovInob7228 [place] [address] MCHC Auto mass conc (RBC) 33.5 g/dL Normal 33.0-37.0 [facility] Comment on above: Performed By: #### 2 [id number] ####DOV SsrLyyg5435 [place] [address] MCV Auto Entitic volume (RBC) 92.4 fL Normal 78.0-100.0 [facility] Comment on above: Performed By: #### 2 [id number] ####DOVChristy FuentesYcaUyoz[address] [place] [address] Platelet mean volume Auto Entitic volume (Bld) 8.7 fL Normal 7.4-11.0 [facility] Comment on above: Performed By: #### 2 181940 ####DOV SldDeec8537 [place] [address] Platelets Auto #/vol (Bld) 278 E3/mcL Normal 130-400 [facility] Comment on above: Performed By: #### 2 [id number] ####DOV PwiKoku4187 [place] [address] RBC Auto #/vol (Bld) 4.94 E6/mcL Normal 3.90-6.10 [facility] Comment on above: Performed By: #### 2 [id number] ####DOV FuentesDklPphz13[address] [place] [address] WBC Auto #/vol (Bld) 8.8 E3/mcL Normal 3.6-11.0 [facility] Comment on above: Performed By: #### 2 [id number] ####DOV [address]BvyKfqz[address] [place] [address] Ethanolon 04-17-2018 Ethanol Lvl 244 mg/dL Critically abnormal <=10 [facility] Comment on above: Result Comment: Alfredo ical Result (s) Called to and read back by: ERWIN PAYNE at: 04/17/2018 03:37:59 by:JASON Performed By: #### 1 [id number] ####DOV [address] [place] [address] Hep Func Panelon 04-17-2018 Albumin mass conc 4.6 g/dL Normal 3.4-5.0 [facility] Comment on above: Performed By: #### 2 [id number] ####DOV [address] [place] [address] Albumin/Globulin mass ratio 1.7 {ratio} Normal 1.1-1.9 [facility] Comment on above: Performed By: #### 2 939186 ####DOV [address] [place] [address] Alk Phos 58 Int._Unit/L Normal 33-120 [facility] Comment on above: Performed By: #### 2 887792 ####DOV [address] [place] [address] ALT enzyme act/vol 27 Int._Unit/L Normal 10-52 [facility] Comment on above: Performed By: #### 2 [id number] ####DOV [address] [place] [address] AST enzyme act/vol 28 Int._Unit/L Normal 9-39 [facility] Comment on above: Performed By: #### 2 [id number] ####DOV [address] [place] [address] Bili Direct 0.08 mg/dL Normal 0.00-0.30 [facility] Comment on above: Performed By: #### 2 [id number] ####DOV Fu[address]NnfPcmy[address] [place] [address] Bili Indirect 0.28 mg/dL Normal [facility] Comment on above: Result Comment: No e stablished ranges available for the indirect bilirubin Performed By: #### 2 [id number] ####DOV [address] [place] [address] Bili Total 0.36 mg/dL Normal 0.00-1.20 [facility] Comment on above: Performed By: #### 2 423095 ####DOV [address]YzuOtlv[address] [place] [address] Globulin Calculated mass conc (S) 3.0 g/dL Normal 2.0-4.0 [facility] Comment on above: Performed By: #### 2 814900 ####DOV Fu[address]TwkGuhz[address] [place] [address] Protein mass conc 7.3 g/dL Normal 6.4-8.2 [facility] Comment on above: Performed By: #### 2 627365 ####DOV OgsOlon7924 [place] [address] Salicylateon 04-17-2018 Salicylate Lvl <1.5 Low 4.0-20.0 [facility] Comment on above: Performed By: #### 2 295229 ####DOV Fu[address]IctAjgu[address] [place] [address] U Drug Screenon 04-17-2018 U Amph Scr Negative [facility] Comment on above: Performed By: #### 2 [id number] ####DOV ZruFhta8314 [place] [address] U Carin Scr Negative [facility] Comment on above: Performed By: #### 2 479533 ####DOV [address]NhhTyif[address] [place] [address] U Benzodia Scr Negative [facility] Comment on above: Performed By: #### 2 760846 ####DOV [address]NnrGmwz[address] [place] [address] U Cannab Scr Positive [facility] Comment on above: Performed By: #### 2 027878 ####DOV GyxKiwy8312 [place] [address] U Cocaine Scr Negative [facility] Comment on above: Performed By: #### 2 980742 ####DOV FuentesBbxWonx[address] [place] [address] U Opiate Scr Negative [facility] Comment on above: Performed By: #### 2 159303 ####DOV [address]JnmYnaq[address] [place] [address] U PCP Scr Negative Normal [facility] Comment on above: Performed By: #### 2 473589 ####DOV [address]ZefDdil[address] [place] [address] eGFRon 04-17-2018 eGFR AA >60 Normal [facility] Comment on above: Order Comment: Order added by Discern Expert. Performed By: #### 1 [id number] ####DOV [address] [place] [address] GFR/1.73 sq M predicted among non-blacks MDRD vol rate/area (S/P/Bld) mL/min/{1.73_m2} Normal [facility] Comment on above: Order Comment: Order added by Discern Expert. Performed By: #### 1 [id number] ####DOV [address]FxgHrcw[address] [place] [address] CMPon 11-16-2017 Albumin mass conc 4.6 g/dL Normal 3.2-5.0 [facility] Comment on above: Performed By: #### 2 [id number] ####DOV FvfApkj5554 [place] [address] Albumin/Globulin mass ratio 1.6 {ratio} Normal 1.1-1.9 [facility] Comment on above: Performed By: #### 2 905958 ####DOV MtbCivw5052 [place] [address] Alk Phos 43 Int._Unit/L Normal 42-121 [facility] Comment on above: Performed By: #### 2 [id number] ####DOV XcbZebb4926 [place] [address] ALT enzyme act/vol 23 Int._Unit/L Normal 10-40 [facility] Comment on above: Performed By: #### 2 [id number] ####DOV BzeIeaf0739 [place] [address] AST enzyme act/vol 20 Int._Unit/L Normal 10-42 [facility] Comment on above: Performed By: #### 2 [id number] ####DOV SncLuyv5721 [place] [address] Bili Total 0.8 mg/dL Normal 0.2-1.0 [facility] Comment on above: Performed By: #### 2 604843 ####DOV GglPifd9592 [place] [address] Calcium mass conc 9.5 mg/dL Normal 8.4-10.2 [facility] Comment on above: Performed By: #### 2 561311 ####DOV PotXkfh8987 [place] [address] Chloride molar conc 103 mmol/L Normal 98-107 [facility] Comment on above: Performed By: #### 2 092039 ####DOV PnjRuxf8736 [place] [address] CO2 molar conc 30.8 mmol/L High 24.0-30.0 [facility] Comment on above: Performed By: #### 2 641047 ####DOV YtnXpel9899 [place] [address] Creatinine mass conc 0.6 mg/dL Normal 0.6-1.3 [facility] Comment on above: Performed By: #### 2 681960 ####DOV AxwTvil3003 [place] [address] Globulin Calculated mass conc (S) 2.9 g/dL Normal 2.0-4.0 [facility] Comment on above: Performed By: #### 2 212047 ####DOV UgcOong4417 [place] [address] Glucose mass conc 85 mg/dL Normal 70-99 [facility] Comment on above: Performed By: #### 2 110244 ####DOV ExwLxbd6051 [place] [address] Potassium molar conc 3.8 mmol/L Normal 3.5-5.1 [facility] Comment on above: Performed By: #### 2 400407 ####DOV BbbQxak4298 [place] [address] Protein mass conc 7.5 g/dL Normal 6.4-8.3 [facility] Comment on above: Performed By: #### 2 [id number] ####DOV TjgCryv6590 [place] [address] Sodium molar conc 142 mmol/L Normal 136-145 [facility] Comment on above: Performed By: #### 2 814575 ####DOV ZrgLzlc1379 [place] [address] Urea nitrogen mass conc 12 mg/dL Normal 7-18 [facility] Comment on above: Performed By: #### 2 580806 ####DOV FnpGgrj9208 [place] [address] Urea nitrogen/Creatinine mass ratio 20.0 ratio Normal 5.4-30.0 [facility] Comment on above: Performed By: #### 2 500095 ####DOV DmuBlsw4040 [place] [address] eGFRon 11-16-2017 eGFR AA >60 Normal [facility] Comment on above: Order Comment: Order added by Discern Expert. Performed By: #### 1 [id number] ####DOV [address]LzqIfox[address] [place] [address] GFR/1.73 sq M predicted among non-blacks MDRD vol rate/area (S/P/Bld) mL/min/{1.73_m2} Normal [facility] Comment on above: Order Comment: Order added by Discern Expert. Performed By: #### 1 [id number] ####DOV QcePnrx8223 [place] [address] Vital Signs Date Time Vital Sign Value Performing Clinician Facility 12-10-2024 21:52-0400 Body temperature 96.8 [degF] No Primary Care Physician [facility] 12-10-2024 21:52-0400 Diastolic blood pressure 80 mm[Hg] No Primary Care Physician [facility] 12-10-2024 21:52-0400 Heart rate 83 /min No Primary Care Physician [facility] 12-10-2024 21:52-0400 Respiratory rate 16 /min No Primary Care Physician [facility] 12-10-2024 21:52-0400 SaO2% (BldA) [Mass fraction] 100 % No Primary Care Physician [facility] 12-10-2024 21:52-0400 Systolic blood pressure 150 mm[Hg] No Primary Care Physician [facility] 12-10-2024 19:46-0400 Body height 187.96 cm No Primary Care Physician [facility] 12-10-2024 19:46-0400 Body mass index (BMI) [Ratio] 27.7 kg/m2 No Primary Care Physician [facility] 12-10-2024 19:46-0400 Body weight 97.97 kg No Primary Care Physician [facility] 10-03-2024 14:52-0400 Body temperature 98.7 [degF] No Primary Care Physician [facility] 10-03-2024 14:52-0400 Diastolic blood pressure 108 mm[Hg] No Primary Care Physician [facility] 10-03-2024 14:52-0400 Heart rate 64 /min No Primary Care Physician [facility] 10-03-2024 14:52-0400 Respiratory rate 18 /min No Primary Care Physician [facility] 10-03-2024 14:52-0400 SaO2% (BldA) [Mass fraction] 98 % No Primary Care Physician [facility] 10-03-2024 14:52-0400 Systolic blood pressure 132 mm[Hg] No Primary Care Physician [facility] 10-03-2024 13:21-0400 Body height 187.96 cm No Primary Care Physician [facility] 03-21-2024 11:15-0500 Diastolic blood pressure 77 mm[Hg] Yelitza Rizvi MD Work Phone: [facility] 03-21-2024 11:15-0500 Heart rate 60 /min Yelitza Rizvi MD Work Phone: [facility] 03-21-2024 11:15-0500 Respiratory rate 16 /min Yelitza Rizvi MD Work Phone: [facility] 03-21-2024 11:15-0500 SaO2% (BldA) [Mass fraction] 96 % Yelitza Rizvi MD Work Phone: [facility] 03-21-2024 11:15-0500 Systolic blood pressure 144 mm[Hg] Yelitza Rizvi MD Work Phone: [facility] 03-21-2024 10:20-0500 Body temperature 97.2 [degF] Yelitza Rizvi MD Work Phone: [facility] 03-16-2024 09:07-0500 Body height 188 cm Yelitza Rizvi MD Work Phone: [facility] 03-16-2024 09:07-0500 Body mass index (BMI) [Ratio] 25.42 kg/m2 Yelitza Rizvi MD Work Phone: [facility] 03-16-2024 09:07-0500 Body weight 89.81 kg Yelitza Rizvi MD Work Phone: [facility] 02-26-2024 08:11-0500 Body height 182.9 cm Yelitza Rizvi MD Work Phone: [facility] 02-26-2024 08:11-0500 Body mass index (BMI) [Ratio] 27.37 kg/m2 Yelitza Rizvi MD Work Phone: [facility] 02-26-2024 08:11-0500 Body weight 91.54 kg Yelitza Rizvi MD Work Phone: [facility] 02-26-2024 08:11-0500 Diastolic blood pressure 75 mm[Hg] Yelitza Rizvi MD Work Phone: [facility] 02-26-2024 08:11-0500 Heart rate 63 /min Yelitza Rizvi MD Work Phone: [facility] 02-26-2024 08:11-0500 Respiratory rate 18 /min Yelitza Rizvi MD Work Phone: [facility] 02-26-2024 08:11-0500 SaO2% (BldA) [Mass fraction] 98 % Yelitza Rizvi MD Work Phone: [facility] 02-26-2024 08:11-0500 Systolic blood pressure 122 mm[Hg] Yelitza Rizvi MD Work Phone: [facility] 09-20-2023 19:45-0400 Diastolic blood pressure 81 mm[Hg] Kyung Esposito MD Work Phone: [facility] 09-20-2023 19:45-0400 Heart rate 78 /min Kyung Esposito MD Work Phone: [facility] 09-20-2023 19:45-0400 Respiratory rate 16 /min Kyung Esposito MD Work Phone: [facility] 09-20-2023 19:45-0400 SaO2% (BldA) [Mass fraction] 99 % Kyung Esposito MD Work Phone: [facility] 09-20-2023 19:45-0400 Systolic blood pressure 132 mm[Hg] Kyung Esposito MD Work Phone: [facility] 09-20-2023 18:37-0400 Body height 185.4 cm Kyung Esposito MD Work Phone: [facility] 09-20-2023 18:37-0400 Body mass index (BMI) [Ratio] 27.97 kg/m2 Kyung Esposito MD Work Phone: [facility] 09-20-2023 18:37-0400 Body temperature 98.29 [degF] Kyung Esposito MD Work Phone: [facility] 09-20-2023 18:37-0400 Body weight 96.16 kg Kyung Esposito MD Work Phone: [facility] 08-21-2023 14:49-0400 Body height 188 cm Casandra Hwang FIELD RESEARCH ASSISTANT-IMPORT/EXPORT CLERK Work Phone: [facility] 08-21-2023 14:49-0400 Body mass index (BMI) [Ratio] 28.02 kg/m2 Casandra Hwang FIELD RESEARCH ASSISTANT-IMPORT/EXPORT CLERK Work Phone: [facility] 08-21-2023 14:49-0400 Body weight 98.97 kg Casandra Hwang FIELD RESEARCH ASSISTANT-IMPORT/EXPORT CLERK Work Phone: [facility] 08-21-2023 14:49-0400 Diastolic blood pressure 85 mm[Hg] Casandra Hwang FIELD RESEARCH ASSISTANT-IMPORT/EXPORT CLERK Work Phone: [facility] 08-21-2023 14:49-0400 Heart rate 71 /min Casandra Hwang FIELD RESEARCH ASSISTANT-IMPORT/EXPORT CLERK Work Phone: [facility] 08-21-2023 14:49-0400 Systolic blood pressure 145 mm[Hg] Casandra Hwang APRN-IMPORT/EXPORT CLERK Work Phone: [facility] 12-16-2022 07:59-0400 Body height 182.8 cm No Pcp Required [facility] 12-16-2022 07:59-0400 Body temperature 97.52 [degF] No Pcp Required [facility] 12-16-2022 07:59-0400 Body weight 95.5 kg No Pcp Required [facility] 12-16-2022 07:59-0400 Diastolic blood pressure 81 mm[Hg] No Pcp Required [facility] 12-16-2022 07:59-0400 Heart rate 77 /min No Pcp Required [facility] 12-16-2022 07:59-0400 Respiratory rate 18 /min No Pcp Required [facility] 12-16-2022 07:59-0400 SaO2% (BldA) [Mass fraction] 98 % No Pcp Required [facility] 12-16-2022 07:59-0400 Systolic blood pressure 124 mm[Hg] No Pcp Required [facility] 12-16-2022 01:56-0400 Diastolic blood pressure 70 mm[Hg] No Pcp Required [facility] 12-16-2022 01:56-0400 Heart rate 80 /min No Pcp Required [facility] 12-16-2022 01:56-0400 Respiratory rate 16 /min No Pcp Required [facility] 12-16-2022 01:56-0400 SaO2% (BldA) [Mass fraction] 98 % No Pcp Required [facility] 12-16-2022 01:56-0400 Systolic blood pressure 154 mm[Hg] No Pcp Required [facility] 12-15-2022 23:15-0400 Body height 187.9 cm No Pcp Required [facility] 12-15-2022 23:15-0400 Body temperature 97.7 [degF] No Pcp Required [facility] 12-15-2022 23:15-0400 Body weight 95.5 kg No Pcp Required [facility] 08-11-2022 12:40-0400 Diastolic blood pressure 87 mm[Hg] No Pcp Required [facility] 08-11-2022 12:40-0400 Heart rate 69 /min No Pcp Required [facility] 08-11-2022 12:40-0400 Respiratory rate 16 /min No Pcp Required [facility] 08-11-2022 12:40-0400 SaO2% (BldA) [Mass fraction] 98 % No Pcp Required [facility] 08-11-2022 12:40-0400 Systolic blood pressure 127 mm[Hg] No Pcp Required [facility] 08-11-2022 09:49-0400 Body height 187.9 cm No Pcp Required [facility] 08-11-2022 09:49-0400 Body temperature 97.88 [degF] No Pcp Required [facility] 08-11-2022 09:49-0400 Body weight 100 kg No Pcp Required [facility] 02-06-2022 14:30-0400 Body height 185 cm No Pcp Required [facility] 02-06-2022 14:30-0400 Body temperature 98.42 [degF] No Pcp Required [facility] 02-06-2022 14:30-0400 Diastolic blood pressure 68 mm[Hg] No Pcp Required [facility] 02-06-2022 14:30-0400 Heart rate 81 /min No Pcp Required [facility] 02-06-2022 14:30-0400 SaO2% (BldA) [Mass fraction] 96 % No Pcp Required [facility] 02-06-2022 14:30-0400 Systolic blood pressure 124 mm[Hg] No Pcp Required [facility] 12-19-2020 19:23-0400 Body height 154.9 cm No Pcp Required [facility] 12-19-2020 19:23-0400 Body temperature 97.7 [degF] No Pcp Required [facility] 12-19-2020 19:23-0400 Diastolic blood pressure 88 mm[Hg] No Pcp Required [facility] 12-19-2020 19:23-0400 Heart rate 67 /min No Pcp Required [facility] 12-19-2020 19:23-0400 SaO2% (BldA) [Mass fraction] 97 % No Pcp Required [facility] 12-19-2020 19:23-0400 Systolic blood pressure 127 mm[Hg] No Pcp Required [facility] Encounters Encounter Date Encounter Type Care Provider Facility Start: 12-10-2024 End: 12-10-2024 Emergency department patient visit No Primary Care Physician -Emergency Department Work Phone: Start: 10-03-2024 End: 10-03-2024 Emergency department patient visit No Primary Care Physician -Emergency Department Work Phone: Start: 06-23-2024 End: 06-23-2024 Subsequent hospital visit by physician [facility] Comment on above: Arrived Start: 06-23-2024 End: 06-23-2024 ambulatory [facility] Start: 05-06-2024 End: 05-06-2024 Postop follow up visit related to original px Yelitza Rizvi MD Work Phone: [facility] Comment on above: Acute pain of right shoulder Start: 05-06-2024 End: 05-06-2024 Subsequent hospital visit by physician [facility] Comment on above: Arrived Start: 05-06-2024 End: 05-06-[address] [facility] Start: 05-05-2024 End: 05-05-2024 ambulatory [facility] Start: 05-03-2024 End: 05-03-2024 ambulatory [facility] Start: 04-29-2024 End: 04-29-2024 ambulatory [facility] Start: 04-28-2024 End: 04-28-2024 ambulatory [facility] Start: 04-26-2024 End: 04-26-2024 ambulatory [facility] Start: 04-21-2024 End: 04-21-2024 ambulatory [facility] Start: 04-20-2024 End: 04-20-2024 ambulatory RADHA SAHU [facility] Start: 04-14-2024 End: 04-14-2024 ambulatory [facility] Start: 04-11-2024 End: 04-11-2024 ambulatory [facility] Start: 03-29-2024 End: 03-29-2024 Subsequent hospital visit by physician Uri Kellyy100 X[facility] Comment on above: Osteoarthritis of AC (acromioclavicular) joint Start: 03-29-2024 End: 03-29-[address] [facility] Start: 03-29-2024 End: 03-29-2024 Postop follow up visit related to original px Yelitza Rizvi MD Work Phone: [facility] Comment on above: Osteoarthritis of AC (acromioclavicular) joint Start: 03-21-2024 End: 03-21-2024 Subsequent hospital visit by physician Yelitza Rizvi MD Work Phone: [facility] [place] Comment on above: Trigger middle finge r of left hand (Primary Dx); Decreased right shoulder range of motion Start: 03-16-2024 ambulatory [facility] Start: 02-26-2024 End: 02-26-2024 Office outpatient visit 40 minutes Yelitza Rizvi MD Work Phone: [facility] Comment on above: Acute pain of right shoulder Start: 02-26-2024 End: 02-26-2024 Subsequent hospital visit by physician [facility] Comment on above: Arrived Start: 02-26-2024 End: 02-26-[address] [facility] Start: 02-02-2024 End: 02-02-2024 Office outpatient visit 25 minutes Yelitza Rizvi MD Work Phone: [facility] Comment on above: Acute pain of right shoulder; Shoulder tendonitis, right Start: 02-02-2024 End: 02-02-[address] [facility] Start: 02-02-2024 End: 02-02-2024 Subsequent hospital visit by physician [facility] Comment on above: Arrived Start: 02-02-2024 End: 02-02-2024 ambulatory [facility] Start: 01-18-2024 End: 01-18-2024 ambulatory [facility] Start: 12-23-2023 End: 12-23-2023 Subsequent hospital visit by physician [facility] Comment on above: Arrived Shoulder tendonitis, right Start: 12-23-2023 End: 12-23-2023 Office outpatient visit 25 minutes Yelitza Rizvi MD Work Phone: [facility] Comment on above: Acute pain of right shoulder; Shoulder tendonitis, right Start: 12-23-2023 End: 12-23-[address] [facility] Start: 12-22-2023 End: 12-22-2023 Subsequent hospital visit by physician [facility] Comment on above: Arrived Start: 12-22-2023 End: 12-22-2023 ambulatory [facility] Start: 11-24-2023 End: 11-24-2023 Subsequent hospital visit by physician [facility] Comment on above: Arrived Start: 11-24-2023 End: 11-24-2023 ambulatory [facility] Start: 10-07-2023 End: 10-07-2023 Office outpatient visit 25 minutes Libra Ha FIELD RESEARCH ASSISTANT-IMPORT/EXPORT CLERK Work Phone: [facility] Comment on above: Shoulder tendonitis, right (Primary Dx); Osteoarthritis of AC (acromioclavicular) joint Start: 10-07-2023 End: 10-07-2023 ambulatory LIBRA HA [facility] Start: 09-20-2023 End: 09-20-2023 Emergency department patient visit Kyung Esposito MD Work Phone: [facility] Comment on above: Abrasion of face, in itial encounter (Primary Dx); Abrasion of scalp, initial encounter; Contusion of scalp, initial encounter; Contusion of face, initial encounter; Strain of neck muscle, initial encounter; Closed head injury, initial encounter Start: 09-07-2023 End: 09-07-2023 Office outpatient new 45 minutes Libra Ha FIELD RESEARCH ASSISTANT-IMPORT/EXPORT CLERK Work Phone: [facility] Comment on above: Shoulder tendonitis, right (Primary Dx); Acute pain of right shoulder; Osteoarthritis of AC (acromioclavicular) joint Start: 09-07-2023 End: 09-07-2023 ambulatory [facility] Start: 08-27-2023 End: 08-27-2023 Subsequent hospital visit by physician Uri Mri [facility] Comment on above: Acute pain of right shoulder; Numbness and tingling of right arm Start: 08-27-2023 End: 08-27-2023 ambulatory CASANDRA [facility] Start: 08-21-2023 End: 08-21-2023 Subsequent hospital visit by physician Uri X-Ray Fluoro 1 [facility] Comment on above: Acute pain of right shoulder; Numbness and tingling in right hand Start: 08-21-2023 End: 08-21-2023 Office outpatient new 45 minutes Casandra Hwang FIELD RESEARCH ASSISTANT-IMPORT/EXPORT CLERK Work Phone: [facility] Comment on above: Acute pain of right shoulder (Primary Dx); Screening for cardiovascular condition; Screening for diabetes mellitus; Numbness and tingling of right arm Start: 08-21-2023 End: 08-21-2023 [facility] Start: 12-16-2022 End: 12-16-2022 Emergency department patient visit Brock Blackwood [facility] Emergency 04 Start: 12-15-2022 End: 12-16-2022 Emergency department patient visit Brock Blackwood [facility] Emergency 02 Start: 08-11-2022 End: 08-11-2022 Emergency department patient visit Austin Almaguer [facility] Emergency 13 Start: 08-04-2022 End: 08-04-2022 Emergency department patient visit Rafal Bergeron Facility:[id number] Start: 02-06-2022 End: 02-06-2022 Emergency department patient visit Shima Alas [facility] Start: 12-19-2020 End: 12-19-2020 Emergency department patient visit Kat Rosas [facility] Start: 07-15-2020 End: 07-15-2020 Emergency department patient visit GEMMA LOZADA [facility] Start: 07-12-2020 End: 07-12-2020 Emergency department patient visit DR LEWIS OLIVER [facility] Start: 06-20-2020 End: 06-20-2020 Emergency department patient visit WADE GUNTER [facility] Start: 03-02-2020 End: 03-02-2020 ambulatory [facility] Start: 12-09-2019 End: 12-09-2019 Patient encounter procedure [facility] Start: 04-17-2018 End: 04-17-2018 Emergency department patient visit Ciara Douglass Facility:[facility] Start: 11-16-2017 End: 11-17-2017 Patient encounter procedure Sadiq Elizondo Facility:[facility] Procedures Date Procedure Procedure Detail Performing Clinician Start: 12-10-2024 X-ray of chest posteroanterior view No Primary Care Physician Start: 06-23-2024 US Abdomen Yelitza thomas MD [...] cervical spine w/ o contrast material Kyung Esposito MD Work Phone: Start: 09-20-2023 Ct head/brain w/o co ntrast material Kyung Esposito MD Work Phone: Start: 09-11-2023 Arthrocentesis aspir &/inj major jt/bursa w/us Libra Vargas Leland FIELD RESEARCH ASSISTANT-IMPORT/EXPORT CLERK Work Phone: Start: 08-21-2023 XR SHOULDER RIGHT 2+ VIEWS CASANDRA HWANG Start: 08-21-2023 CBC W Auto Different ial panel - Blood CASANDRA HWANG Start: 08-21-2023 Comprehensive metabo lic 2000 panel - Serum or Plasma CASANDRA HWANG Start: 08-21-2023 Lipid panel CASANDRA FERNANDEZ Start: 08-21-2023 TSH WITH REFLEX TO F REE T4 IF ABNORMAL CASANDRA HWANG Start: 08-21-2023 Lipid 1996 panel - S deedee or Plasma Uri 1 Plan of Treatment Date Care Activity Detail Author Start: 2047 Zoster Vaccines (1 of 2) Zoster Vacc otilio (1 of 2) [facility] Start: 12-15-2032 DTaP/Tdap/Td Vaccine s (8 - Td or Tdap) DTaP/Tdap/Td Vaccines (8 - Td or Tdap) [facility] Start: 08-20-2028 Lipid panel Lipid Panel [facility] Start: 12-10-2024 [facility] Start: 10-03-2024 [facility] Start: 06-10-2024 End: 06-10-2024 Patient encounter procedure 06/10/2024 9:45 AM EST Office Visit [facility] [address] [place] [phone] Yelitza Rizvi MD [address] [place] [address] [facility] Start: 05-10-2024 End: 05-10-2024 ambulatory 05/10/2024 11:30 AM EST Treatment [facility] [address] [place] [phone] Gage Justice, PT [address] [facility] [place] [address] [facility] Start: 04-29-2024 End: 04-29-2024 Patient encounter procedure 04/29/2024 8:00 AM EST Office Visit [facility] [address] [place] [phone] Yelitza Rizvi MD [address] [place] [phone] [facility] Start: 03-29-2024 End: 03-29-2024 Patient encounter procedure 03/29/2024 8:45 AM EST Office Visit [facility] [address] [place] [phone] Yelitza Rizvi MD [address] [place] [address] [facility] Start: 03-28-2024 End: 03-28-2025 XR Shoulder - right 2 Views XR shoulder right 2+ views Imaging Routine Osteoarthritis of AC (acromioclavicular) joint Expected: 03/28/2024, Expires: 03/28/2025 [facility] Service Area Work Phone: Comment on above: Expected: 03/28/2024 , Expires: 03/28/2025 Start: 03-21-2024 End: 03-21-2024 Admission to same day surgery center 03/21/2024 7:30 AM EST - 03/21/2024 9:50 AM EST Surgery [facility] [place] [address] [place] [address] Yelitza Rizvi MD [address] [place] [address] Arthroscoplc Shoulder with Subacromial Decompression and CA Ligament Relase [56599 (CPT )] [facility] [place] Comment on above: Arthroscoplc Shoulde r with Subacromial Decompression and CA Ligament Relase [53876 (CPT )] Start: 03-21-2024 End: 03-21-2024 Arthroscopy shoulder distal claviculectomy [facility] Start: 03-21-2024 End: 03-21-2024 Arthroscopy shoulder w/coracoacrm ligmnt release [facility] Start: 03-21-2024 Subsequent hospital visit by physician 03/21/2024 6:00 AM EST Hospital Encounter [facility] [place] [address] [place] [address] Yelitza Rizvi MD [address] [place] [phone] [facility] [place] Start: 02-26-2024 End: 02-26-2024 Patient encounter procedure 02/26/2024 8:00 AM EST Office Visit [facility] [address] [place] [phone] Yelitza Rizvi MD [address] [place] [address] [facility] Start: 01-29-2024 End: 01-29-2024 Patient encounter procedure 01/29/2024 9:15 AM EDT Office Visit [facility] [address] [place] [phone] Yelitza Rizvi MD [address] [place] [address] [facility] Start: 12-23-2023 Subsequent hospital visit by physician 12/23/2023 11:49 AM EDT Hospital Encounter [facility] [address] [place] [phone] Shoulder tendonitis, right [facility] Comment on above: Shoulder tendonitis, right Start: 12-06-2023 COVID-19 Vaccine ( season) COVID-19 Vaccine ( season) [facility] Start: 12-06-2023 COVID-19 Vaccine ( season) COVID-19 Vaccine () [facility] Start: 12-06-2023 Influenza vaccination [facility] Start: 11-24-2023 End: 11-24-2023 Patient encounter procedure 11/24/2023 4:15 PM EDT Office Visit [facility] [address] [facility] [address] [place] [phone] Yelitza Rizvi MD [address] [facility] [address] [place] [address] [facility] Start: 10-07-2023 End: 10-07-2023 Patient encounter procedure 10/07/2023 9:15 AM EDT Office Visit [facility] [address] [facility] [address] [place] [phone] Libra Ha, FIELD RESEARCH ASSISTANT-IMPORT/EXPORT CLERK [address] [facility] [address] [place] [address] [facility] Start: 09-25-2023 End: 09-25-2023 Patient encounter procedure 09/25/2023 3:50 PM EDT Office Visit [facility] [address] [place] [phone] Casandra Hwang, FIELD RESEARCH ASSISTANT-IMPORT/EXPORT CLERK [address] [facility] [place] [address] [facility] [place] [facility] Start: 08-21-2023 End: 08-21-2023 ambulatory 08/21/2023 3:40 PM EDT Lab [facility] [address] [phone] Screening for cardiovascular condition; Screening for diabetes mellitus [facility] Comment on above: Screening for cardio vascular condition; Screening for diabetes mellitus Start: 08-21-2023 Subsequent hospital visit by physician 08/21/2023 3:34 PM EDT Hospital Encounter [facility] [address] [place] [address] Acute pain of right shoulder; Numbness and tingling in right hand [facility] Comment on above: Acute pain of right shoulder; Numbness and tingling in right hand Start: 08-21-2023 End: 08-20-2024 CBC W Auto Differential panel - Blood [facility] Work Phone: Comment on above: Expected: 08/21/2023 (Approximate), Expires: 08/20/2024 Start: 08-21-2023 End: 08-20-2024 Comprehensive metabolic 2000 panel - Serum or Plasma [facility] Work Phone: Comment on above: Expected: 08/21/2023 (Approximate), Expires: 08/20/2024 Start: 08-21-2023 End: 08-20-2024 Lipid 1996 panel - Serum or Plasma [facility] Work Phone: Comment on above: Expected: 08/21/2023 (Approximate), Expires: 08/20/2024 Start: 08-21-2023 End: 08-20-2024 MR Shoulder - right Arthrogram MR arthrogram shoulder right Imaging Routine Acute pain of right shoulder Expected: 08/21/2023, Expires: 08/20/2024 [facility] Work Phone: Comment on above: Expected: 08/21/2023 , Expires: 08/20/2024 Start: 08-21-2023 End: 08-20-2024 TSH with reflex to Free T4 if abnormal [facility] Work Phone: Comment on above: Expected: 08/21/2023 (Approximate), Expires: 08/20/2024 Start: 08-21-2023 End: 08-20-2024 XR Shoulder - right 2 Views [facility] Service Area Work Phone: Comment on above: Expected: 08/21/2023 , Expires: 08/20/2024 Once for 1 Occurrenc es starting 08/21/2023 until 08/21/2023 Start: 12-16-2022 End: 12-16-2023 Lidocaine 1% - EPINEPHrine 1:100,000 Injectable SubCutaneous Once ; DOSE = 30 mL SubCutaneous Once Start: 15-Dec-2022 End: 15-Dec-2023 Ordered: 15-Dec-2022 Brock Blackwood [facility] Start: 12-05-2022 COVID-19 Vaccine () COVID-19 Vaccine () [facility] Start: 2016 Pneumococcal Vaccine : Pediatrics and At-Risk Adult Patients (1 of 2 - PCV) Pneumococcal Vaccine: Pediatrics and At-Risk Adult Patients (1 of 2 - PCV) [facility] Start: 2012 HPV Vaccines (1 - Ma le 3-dose series) HPV Vaccines (1 - Male 3-dose series) [facility] Start: 2003 Pneumococcal Vaccine : Pediatrics (0 to 5 Years) and At-Risk Patients (6 to 64 Years) (1 of 2 - PCV) Pneumococcal Vaccine: Pediatrics (0 to 5 Years) and At-Risk Patients (6 to 64 Years) (1 of 2 - PCV) [facility] Start: 1997 HIV screening HIV Screening [facility] Start: 1997 Lipid panel Lipid Panel [facility] Start: 1997 Yearly Adult Physical Yearly Adult P hysical [facility] End: 03-21-2024 Blood type and Indirect antibody screen panel - Blood Type And Screen Lab Timed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
--- NOTE | 2025-01-07 04:58 | EDS_ITS ---
HPI History of Present Illness Chief Complaint: Edema Informant: patient Narrative Narrative: Patient is a 27-year-old male presenting with facial swelling secondary to a dental infection. - Onset of swelling began yesterday morning, initially minimal. - Associated with a dental infection involving an upper tooth. - Visited a dentist at [facility] and a specialist yesterday; swelling was less severe at that time. - Took prescribed medications around 1300 and napped; upon waking at 1500, swelling had worsened. - Visited urgent care, received additional medication. - Swelling progressed overnight, extending towards the eye; unable to wear glasses due to swelling. - Denies fever. Denies rhinorrhea. - Currently taking amoxicillin-clavulanic acid. - Concerned about potential impact on scheduled root canal on Thursday. PFSH PFSH Medical History no medical history no medical history Home Medications ?Medication ?Instructions ?Recorded ?Last Taken ?Type cyclobenzaprine 5 mg tablet 5 mg PO TID PRN muscle spa sm 3 12/10/24 Unknown Rx days #9 tabs clindamycin HCl 300 mg capsule 300 mg PO Q6H #40 CAPSU LES 01/07/25 Unknown Rx (Cleocin HCl) diclofenac sodium 1 % topical gel 2 g topical 4X/DAY P RN PRN pain 01/07/25 Unknown History (Arthritis Pain (diclofenac)) hydrocodone-acetaminophen 5-325mg 1 tab PO Q4H PRN PRN Pain 3 days 01/07/25 Unknown Rx 5mg-325mg #15 TABLETS ibuprofen 800 mg tablet 800 mg PO Q8H PRN PRN mild p ain 01/07/25 Unknown History Allergy/AdvReac Type Severity Reaction Status Date / Time Penicillins (PCN) Allergy PT UNABLE Verified 01/07/25 04:22 TO RESPOND-NEEDS F/U Social History Smoking Status: Never smoker ROS ROS ED Constitutional Constitutional ED: Denies chills or fever(s) Eyes Eyes: Denies change in vision or double vision ENT ENT ED: Reports as per HPI, dental pain and facial pain; Denies sinus pain or throat swelling Cardiovascular Cardiovascular: Denies chest pain or palpitations Respiratory/Chest Respiratory/Chest: Denies cough or dyspnea Integumentary Denies abscess or rash Neurologic Neurologic: Denies headache(s), paresthesias or weakness EXAM Physical Exam Const Vital Signs: 10/04/25 04:24 01/07/25 04:25 01/07/25 04:27 Temperature 98.2 F 98.7 F Temperature Source Oral Oral Pulse Rate 72 78 Respiratory Rate 16 16 Respiratory Effort Normal Respiratory Pattern Normal Blood Pressure 156/97 H 156/96 H Blood Pressure Mean 116 116 Pulse Ox 98 97 Oxygen Delivery Method Room Air Room Air Positive well nourished and well developed General Appearance ED: well developed and NAD HEENT HEENT Narrative: Some decay with left maxillary cuspid, and no discharge or bleeding or gingival abnormality but significant periapical tenderness and left maxillary facial swelling all the way up to the inferior eyelid which is swollen. Induration with palpable abscess 2-3 cm at about the level of the nasal nares, but not up to the eyelid. No nasal discharge. No trismus. Throat: posterior oropharynx normal Eyes PERRL and EOMs intact bilaterally Neck no lymphadenopathy and supple Resp normal respiratory effort Neuro oriented x3 and CN's II-XII intact bilaterally Sensorium / Orientation: alert Gait (Neuro): normal gait Psych mental status grossly normal and thought process normal Skin no rashes or lesions noted and no wounds MDM MDM MDM Narrative Medical decision making narrative: Assessment: The patient is a 27-year-old female presenting for rapidly progressive left maxillary swelling that began yesterday morning after a dental infection. Examination reveals a decayed maxillary tooth with marked supra- apical tenderness and swelling tracking to the inferior left eyelid, consistent with a periapical abscess; no fever reported. Given the localized findings and adequate outpatient Augmentin therapy, periapical abscess without sinus is the most likely diagnosis and imaging is not required at this time. Plan: - Cetacane topical anesthetic applied intraorally. - Needle aspiration of periapical swelling to evacuate purulent material; this was done however unsuccessful in obtaining any purulent material so antibiotic will be changed to clindamycin - Prescribed oral analgesics for pain control. - Administered/ordered Decadron to reduce facial swelling. Procedures Other Procedures Procedure(s): Dental abscess needle aspiration: After informed consent from the patient, locally anesthetized in the mucosa with Cetacaine 3-second spray, followed by super apical abscess aspiration attempt with 21-gauge needle. Directed twice and no purulence obtained. Patient in pain but tolerated well without complications. Was able to swish with ice water and spit afterwards with resolution of bleeding. Given [place]. Discharge Plan Triage Chief Complaint: Edema ED Provider: Prakash Mcnally Dx/Rx/DC Orders Clinical Impression: Dental abscess, Dental decay Prescriptions: New clindamycin HCl [Cleocin HCl] 300 mg capsule 300 mg PO Q6H Qty: 40 0RF hydrocodone-acetaminophen 5-325 mg tablet 1 tab PO Q4H PRN PRN (Reason: Pain) 3 Days Qty: 15 0RF Continued ibuprofen 800 mg tablet 800 mg PO Q8H PRN PRN (Reason: mild pain) diclofenac sodium [Arthritis Pain (diclofenac)] 1 % gel 2 g topical 4X/DAY PRN PRN (Reason: pain) cyclobenzaprine 5 mg tablet 5 mg PO TID PRN (Reason: muscle spasm) 3 Days Qty: 9 0RF Discontinued amoxicillin-pot clavulanate 500-125 mg tablet 1 tab PO BID Primary Care Provider: Care Physician,No Primary Referrals: Dentist,Your [STAFF PHYSICIAN, Dentistry] - Keep Alfredo appointment Print Language: Belgian Disposition Disposition: Home, Self Care
[2025-01-07] MEDS: Tetracaine/Benzocaine/Butamben 1 APPLIC TOPICAL (05:11)
[2025-01-07] MEDS: HYDROcodone Bitartrate/Apap 5/325 Tablet PO (06:25)
[2025-01-07 06:30] VITALS: BP 156/108; PULSE 83; RESP 18; TEMP 37.1; O2SAT 97
== END 2025-01-07 06:31 | disposition home or self-care (01) ==
PROVIDERS: Emergency Provider Emergency Medicine; Visit Provider Emergency Medicine
DX: K04.7 Periapical abscess without sinus (principal); K02.9 Dental caries, unspecified
CPT/HCPCS: 41800; 99283